=== PATIENT | male | born 1950 | race Caucasian/White ===

== ENCOUNTER 2018-12-12 09:17 | Inpatient (IN) ==
[~2018-12-12 09:17] MED LIST: Aminoglycoside Consult 1 EACH MC ONE
[2018-12-12] MEDS ORDERED: Naloxone 0.4 MG/ML INJ IVP PRN (12:16)
[2018-12-12] MEDS ORDERED: traMADol 50 MG TABLET PO PRN (12:16)
--- NOTE | 2018-12-12 12:24 | Pulmonology History & Physical ---
<James Boss - Last Filed: 12/12/18 13:45> Date of Encounter: 12/12/18 Time of Encounter: 12:24 Assessment and Plan (1) Sepsis Current visit: Yes Status: Acute Suspect sepsis based on tachycardia, tachypnea, fever and infectious source of multifocal pneumonia Lactic acid was not significantly elevated, blood pressure stable, alert and oriented 3 Plan to treat multifocal pneumonia with antibiotics We will not start fluid resuscitation at this time due to heart failure exacerbation Patient currently hemodynamically stable Qualifiers: Sepsis type: sepsis due to unspecified organism Qualified Code(s): A41.9 - Sepsis, unspecified organism (2) Acute respiratory failure Current visit: Yes Status: Acute Patient was transferred from [facility] for acute on chronic hypoxic respiratory failure He presented this morning with the chief complaint of shortness of breath He was found to be hypoxic on his home dose of 3 L nasal cannula supplemental oxygen Likely secondary to multifocal pneumonia and heart failure exacerbation Patient does have COPD but exacerbation is considered less likely Chest x-ray and CT demonstrate multifocal pneumonia, pulmonary edema and effusion On exam patient does not have wheezing or accessory muscle use Plan to continue supplemental oxygen, DuoNeb's, Symbicort We will address pneumonia with vancomycin and Zosyn until MRSA swab and cultures are complete Will fluid restrict and diuresis patient with IV Lasix, strict ins and outs and daily weights Qualifiers: Respiratory failure complication: hypoxia Qualified Code(s): J96.01 - Acute respiratory failure with hypoxia (3) HCAP (healthcare-associated pneumonia) Current visit: Yes Status: Acute Antibiotic regimen as above (4) Systolic and diastolic CHF, acute on chronic Current visit: Yes Status: Acute Patient has history of mild diastolic heart failure with reduced ejection fraction of 50% Most recent echocardiogram 11/24/2018 Diuresis as above (5) Hemoptysis Current visit: Yes Status: Acute Patient complains of hemoptysis since this morning He describes it as approximately a handful There is minimal blood witnessed in the y[place] Patient denies hematemesis or hematochezia No other bleeding diatheses witnessed, hemoglobin stable Not concerning for acute blood loss at this time, patient typed and screened, we will continue to monitor (6) COPD (chronic obstructive pulmonary disease) Current visit: No Status: Chronic History of COPD with most recent pulmonary function test on 12/05/2018 demonstrating severe obstructive pattern and impaired gas exchange Not currently in exacerbation, we will treat with supplemental oxygen, bronchodilators and inhaled corticosteroids as above Qualifiers: COPD type: COPD with acute lower respiratory infection Qualified Code(s): J44.0 - Chronic obstructive pulmonary disease with acute lower respiratory infection (7) Cirrhosis Current visit: No Status: Chronic Patient has history of cirrhosis secondary to previous hepatitis infection and alcohol use Imaging on previous admission was concerning for portal hypertension and portal venous thrombosis Patient also has hypodense lesion on imaging concerning for hepatocellular carcinoma Patient also has sequela of thrombocytopenia and elevated PT, hemoptysis Patient was scheduled to follow up outpatient with GI however will likely not make the appointment due to being in the hospital Gastroenterology consult at this admission for recommendations on management Qualifiers: Hepatic cirrhosis type: unspecified hepatic cirrhosis Ascites presence: without ascites Qualified Code(s): K74.60 - Unspecified cirrhosis of liver History of Present Illness Chief complaint: shortness of breath HPI: Mr. Stevenson is a 68 year old male with a past medical history of cirrhosis, COPD on 3 L home oxygen, hepatitis, myocardial infarction, chronic kidney disease who presented to [facility] with the chief complaint of shortness of breath and coughing up blood. He was recently admitted here in the hospital for COPD exacerbation and was discharged on 11/26/18. This morning he was seen at [facility] where he was noted to be tachycardic, tachypnea, febrile. Chest x- ray and chest CT were performed which demonstrated multifocal pneumonia and small pleural effusions, stable pulmonary nodules, interstitial pulmonary edema. Labs were significant for platelet count of 38,000, elevated PT, elevated d- dimer, compensated respiratory acidosis, lactic acid within normal limits, elevated BNP. Patient was determined to be necessary to transfer, admitting team at [facility] determined patient was necessary to be admitted to ICU. On arrival to [facility] ICU patient was in no acute distress. He stated he went home after his last admission and did well for a couple weeks. He does admit to using E cigarettes or vaporizing tobacco at home. He states the last couple of days his shortness of breath got worse and this morning he was coughing up blood. On arrival here he is comfortable on nasal cannula and denies any chest pain, palpitations. Past Med Surg Social Fam HX - Past Medical History Medical history: cirrhosis, CHF, COPD, hepatitis, myocardial infarction, renal disease Psychiatric history: anxiety, depression, panic disorder - Past Surgical History Additional surgical history: CARDIAC STENT 1995 - Social History Smoking Status: Former smoker Alcohol use: rarely Drug use: none - Family History Father Living Status: Hx Family Respiratory Disorders: Yes (COPD) Hx Family Cancer: Yes (lung) Mother Living Status: Hx Family Cancer: Yes (lung) Medications and Allergies RX: Albuterol Sulfate [Albuterol Inhaler] 2 puff IH Q6HR PRN 11/23/18 [History] RX: Aspirin [Lo-Dose Aspirin EC] 81 mg PO DAILY 11/23/18 [History] RX: Budesonide/Formoterol 160/4.5 [Symbicort 160/4.5] 2 puff IH BIDR 11/23/18 [History] RX: Buspirone HCl [Buspar] 7.5 mg PO DAILY@1500 11/23/18 [History] RX: Cholecalciferol (Vitamin D3) [Vitamin D3] 1,000 unit PO QDPC 11/23/18 [History] RX: Folic Acid 1 mg PO DAILY 11/23/18 [History] RX: Pregabalin [Lyrica] 75 mg PO QDPC 11/23/18 [History] RX: Tamsulosin HCl [Flomax] 0.4 mg PO DAILY 11/23/18 [History] RX: Venlafaxine HCl [Venlafaxine HCl ER] 37.5 mg PO QAM 11/23/18 [History] RX: clonazePAM [Clonazepam] 1 mg PO BID 11/23/18 [History] Furosemide [Lasix] 20 mg PO Q48H 12/12/18 [History] Nitroglycerin [Nitrostat] 0.4 mg SL Q5M PRN 12/12/18 [History] RX: Oxygen 1 each .ROUTE AD 12/12/18 [History] Allergy/AdvReac Type Severity Reaction Status Date / Time phenytoin [From Dilantin] AdvReac See Verified 12/12/18 06:59 Comments All Systems: The remainder of the systems were reviewed and are negative - Constitutional Constitutional: chills, fever(s), no frequent falls, no night sweats - EENT Nose, mouth and throat: no dizziness, no headache(s) - Cardiovascular Cardiovascular: dyspnea on exertion, orthopnea, no chest pain, no chest pain at rest, no irregular heart rhythm, no radiating jaw, neck or arm pain, no palpitations, no syncope - Respiratory Respiratory: cough, hemoptysis, no wheezing - Gastrointestinal Gastrointestinal: no abdominal pain, no diarrhea, no hematemesis, no hematochezia, no vomiting - Genitourinary Genitourinary: no difficulty urinating - Musculoskeletal Musculoskeletal: no weakness, no myalgias - Integumentary Integumentary: no erythema, no rash - Neurological Neurological: no abnormal gait, no focal weakness, no syncope - Endocrine Endocrine: no heat intolerance, no polydipsia - Hematologic/Lymphatic Hematologic/Lymphatic: easy bleeding, no easy bruising Physical Examination Vital Signs: Temperature 98.5 degrees, heart rate 104 bpm, respiratory rate 24, oxygen saturation 94% on 3 L nasal cannula, blood pressure 112/66 General appearance: no acute distress Eyes: nonicteric ENT: oropharynx moist Neck: supple Effort: normal Inspection: normal Auscultation: bilateral: rales, rhonchi Cardiovascular: other (Tachycardic rate and irregular rhythm) Gastrointestinal: normoactive bowel sounds, tender, other (Somewhat firm tender abdomen, hepatomegaly present) Integumentary: other (Chronic venous stasis changes present in bilateral lower extremities, no other rash visualized) Extremities: no cyanosis, other (Mild 1+ pitting edema in bilateral lower extremities) Musculoskeletal: no deformities Gait: normal posture normal mental status, non-focal exam, other (Alert and oriented 3) mood appropriate, affect normal Results - Laboratory Findings Abnormal lab findings: Abnormal lab findings as listed in history of present illness - Diagnostic Findings Chest x-ray: report reviewed, image reviewed CT scan - chest: report reviewed, image reviewed, other (Significant bilateral lower lobe opacification consistent with multifocal pneumonia. There is also significant interstitial and septal edema and mild pleural effusion) <Vikki Johnson M - Last Filed: 12/13/18 07:42> Date of Encounter: 12/13/18 History of Present Illness HPI: Mr. Stevenson is a 68 year old male All Systems: The remainder of the systems were reviewed and are negative Physical Examination Vital Signs: Vital Signs, Last 4 Hours Temp Pulse Resp BP Pulse Ox 12/12/18 14:00 102 23 152/92 94 12/12/18 13:39 94 12/12/18 12:00 98.8 F 103 23 125/79 94 Results - Laboratory Findings CBC and BMP: 12/13/18 04:43 12/13/18 04:43 - Attending Attestation I examined this patient and my medical decision-making was reviewed with the Resident Physician. I agree with the documented findings, disposition and treatment plan as described except to the extent set forth below. Patient seen and examined. Admitting hospitalist called regarding this patient because he is having hemoptysis Labs, radiology, chart personally reviewed. 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 Reviewed CT chest personally and there is significant evidence of pneumonia and will be treated with broad-spectrum antibiotics. Patient does have hemoptysis, however it is not massive and he is hemodynamically stable. Unfortunately with his thrombocytopenia that makes his risk of bleeding higher. If continue having hemoptysis then he will need platelet transfusion. The patient continued to have hemoptysis then we can consider bronchoscopy since procedure might make his condition worse. Cardiovascular: stable GI: Nutrition per dietary and GI prophylaxis per routine. Gastroenterology has seen the patient in the previous hospitalization and need recommendations and coordinate outpatient follow-up for him. Heme: DVT prophylaxis per routine. Patient has hemoptysis with thrombocytopenia and he will need mechanical DVT prophylaxis. ID: Continue antibiotics and plan to de-escalation Renal; urine out put and renal funtion reviewed Endorcine: blood glucose is monitored Lines: all lines checked and no evidence of infections Skin: skin care to prevent pressure ulcers per nursing routine care
[2018-12-12] MEDS ORDERED: Furosemide 20 MG/2 ML VIAL IVP ONE (12:26)
[2018-12-12] MEDS ORDERED: NON-FORMULARY MEDICATION 1 EACH EACH (Pantoprazole Sodium [Protonix] 40 MG) PO SCH (12:45)
[2018-12-12] MEDS ORDERED: Vancomycin (wt based) 1,000 MG VIAL IVPB SCH (13:00)
[2018-12-12] MEDS ORDERED: Budesonide/Formoterol 160/4.5 1 PUFF INH IH ONE (15:59)
[2018-12-12] MEDS: Ipratropium/Albuterol Neb 3 ML IH SCH ×3 (16:01→23:24)
[2018-12-12] MEDS: Piperacillin/Tazobactam 3.375 GM in 0.9 % Sodium Chloride Mini Bag 100 ML IVPB SCH ×2 (16:03→23:48)
[2018-12-12] MEDS ORDERED: MethylPREDNISolone 40 MG/ML VIAL IVP SCH (18:00)
[2018-12-12] MEDS: Budesonide/Formoterol 160/4.5 1 PUFF INH IH SCH (20:28)
[2018-12-12] MEDS: Furosemide 20 MG/2 ML VIAL IVP SCH (20:46)
[2018-12-13 00:25] LABS: ABG Base Excess 12 mEq/L (-2 to 3); ABG HCO3 40 mEq/L (21-27); ABG Oxygen Saturation 95 % (95-98); ABG PCO2 64 mmHg (35-45); ABG PO2 81 mmHg (85-104); ABG TCO2 42 mEq/L (20-26)
[2018-12-13 00:38] LABS: Albumin 3.2 g/dL (3.5-5.7); Albumin/Globulin Ratio 1.3 (1.1-2.2); Bilirubin,Direct 0.3 mg/dL (0.0-0.2); Bilirubin,Indirect 0.7 mg/dL (0.0-1.2); Globulin 2.4 g/dL (2.4-3.5); Total Protein 5.6 g/dL (6.4-8.9)
[2018-12-13] MEDS: Ipratropium/Albuterol Neb 3 ML IH SCH ×6 (04:00→23:37)
[2018-12-13 04:49] LABS: Hemoglobin 13.1 g/dL (12.9-16.9)
[2018-12-13 04:51] LABS: Hematocrit 42.5 % (37.5-50.1); Immature Platelets 14.3 % (1.1-6.1); Lymphocytes # 0.2 K/mcL (0.6-4.6); Mean Corpuscular HGB Conc 30.8 g/dL (31.6-35.5); Mean Corpuscular Hemoglobin 25.3 pg (28.0-33.3); Monocytes # 0.2 K/mcL (0.0-1.3); Red Blood Count 5.18 M/mcL (4.19-5.50); Red Cell Distribution Width 23.9 % (11.5-14.5)
[2018-12-13 04:58] LABS: Platelet Count 33 K/mcL (140-400)
[2018-12-13 05:10] LABS: Albumin 3.4 g/dL (3.5-5.7); Albumin/Globulin Ratio 1.4 (1.1-2.2); Bilirubin,Total 1.1 mg/dL (0.3-1.0); Calcium 8.6 mg/dL (8.6-10.3); Globulin 2.4 g/dL (2.4-3.5); Potassium 4.1 mEq/L (3.5-5.1); Total Protein 5.8 g/dL (6.4-8.9)
[2018-12-13 05:37] LABS: Neutrophils # 7.4 K/mcL (1.6-8.9)
[2018-12-13 05:39] LABS: Anisocytosis 1+ (Not Present); Macrocytosis Present (Not Present)
[2018-12-13 05:40] LABS: Platelet Estimate Marked Decrease (Normal)
[2018-12-13] MEDS: Furosemide 20 MG/2 ML VIAL IVP SCH (07:40)
[2018-12-13] MEDS: Piperacillin/Tazobactam 3.375 GM in 0.9 % Sodium Chloride Mini Bag 100 ML IVPB SCH ×3 (07:46→23:26)
[2018-12-13] MEDS: Budesonide/Formoterol 160/4.5 1 PUFF INH IH SCH ×2 (07:54→20:09)
--- NOTE | 2018-12-13 08:02 | Pulmonology Progress Note ---
<AlexArnulforuth M - Last Filed: 12/13/18 09:57> Date of Encounter: 12/13/18 Objective PUL Vital signs: Last Vital Signs Temp 98.1 F 12/13/18 09:00 Pulse 99 12/13/18 09:00 Resp 20 12/13/18 09:00 BP 121/65 12/13/18 09:00 Pulse Ox 95 12/13/18 09:00 Results - Laboratory Findings CBC and BMP: 12/13/18 04:43 12/13/18 04:43 ABG ABG pH 7.40 pH Units (7.32-7.45) 12/13/18 00:22 ABG pCO2 64 mmHg (35-45) H 12/13/18 00:22 ABG pO2 81 mmHg (85-104) L 12/13/18 00:22 ABG O2 Saturation 95 % (95-98) 12/13/18 00:22 Abnormal lab findings: Abnormal lab results MCV 82.0 fL (83.0-100.0) L 12/13/18 04:43 MCH 25.3 pg (28.0-33.3) L 12/13/18 04:43 MCHC 30.8 g/dL (31.6-35.5) L 12/13/18 04:43 RDW 23.9 % (11.5-14.5) H 12/13/18 04:43 Plt Count 33 K/mcL (140-400) L 12/13/18 04:43 Band Neutrophils % 14.0 % (0-4) H 12/13/18 04:43 Lymphocytes # 0.2 K/mcL (0.6-4.6) L 12/13/18 04:43 Platelet Estimate Marked Decrease (Normal) L 12/13/18 04:43 Immature Plt Fraction 14.3 % (1.1-6.1) H 12/13/18 04:43 Anisocytosis 1+ (Not Present) A 12/13/18 04:43 Macrocytosis Present (Not Present) A 12/13/18 04:43 ABG pCO2 64 mmHg (35-45) H 12/13/18 00:22 ABG pO2 81 mmHg (85-104) L 12/13/18 00:22 ABG HCO3 40 mEq/L (21-27) H 12/13/18 00:22 ABG Total CO2 42 mEq/L (20-26) H 12/13/18 00:22 ABG Base Excess 12 mEq/L (-2 to 3) H 12/13/18 00:22 Chloride 95 mEq/L (98-107) L 12/13/18 04:43 Carbon Dioxide 36 mEq/L (23-29) H 12/13/18 04:43 BUN 30 mg/dL (8-23) H 12/13/18 04:43 Creatinine 1.56 mg/dL (0.70-1.30) H 12/13/18 04:43 Est GFR ( Amer) 54 (> 60) L 12/13/18 04:43 Est GFR (Non-Af Amer) 45 (> 60) L 12/13/18 04:43 Glucose 146 mg/dL (70-105) H 12/13/18 04:43 Total Bilirubin 1.1 mg/dL (0.3-1.0) H 12/13/18 04:43 Direct Bilirubin 0.3 mg/dL (0.0-0.2) H 12/13/18 00:12 Serum Total Protein 5.8 g/dL (6.4-8.9) L 12/13/18 04:43 Albumin 3.4 g/dL (3.5-5.7) L 12/13/18 04:43 - Microbiology Findings Microbiology Findings: Microbiology, Last 48 Hours 12/12/18 16:14 Legionella Antigen - Final Urine,Clean Catch Streptococcus pneumoniae Antigen (M - Final 12/12/18 14:43 Sputum Culture - Preliminary Sputum 12/12/18 14:18 Influenza Types A,B Antigen - Final Nasopharyngeal 12/12/18 12:50 Blood Culture - Preliminary Peripheral Venipuncture Culture is incubating and being continuously monitored for growth. Final report to follow. 12/12/18 12:55 Blood Culture - Preliminary Peripheral Venipuncture Culture is incubating and being continuously monitored for growth. Final report to follow. - Clinical Findings Intake & Output: Intake & Output 12/12/18 12/13/18 12/13/18 23:59 07:59 15:59 Intake Total 960 / 960 100 / 100 120 / 120 Output Total 1350 / 1350 350 / 350 Balance -390 / -390 -250 / -250 120 / 120 Weight 82.8 kg Consult Discharge Plan - Plan Referrals: NONE,PCP [Primary Care Provider] - - Attending Attestation I examined this patient and my medical decision-making was reviewed with the Resident Physician. I agree with the documented findings, disposition and treatment plan as described except to the extent set forth below. Patient seen and examined. Labs, radiology, chart personally reviewed. 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 Cardiovascular: stable GI: Nutrition per dietary and GI prophylaxis per routine Heme: DVT prophylaxis per routine. Same plan if he continued to bleed then he will need platelet transfusion ID: Continue antibiotics and plan to de-escalation Renal; urine out put and renal funtion reviewed Endorcine: blood glucose is monitored Lines: all lines checked and no evidence of infections Skin: skin care to prevent pressure ulcers per nursing routine care Patient stable enough to be transferred to the floor and we will continue follow-up. <James Boss - Last Filed: 12/13/18 18:42> Date of Encounter: 12/13/18 Time of Encounter: 08:02 Assessment and Plan (1) Sepsis Current Visit: Yes Status: Resolved Suspected sepsis based on tachycardia, tachypnea, fever and infectious source of multifocal pneumonia on admission Lactic acid was not significantly elevated, blood pressure stable, alert and oriented 3 Patient no longer meets sepsis criteria, resolved Qualifiers: Sepsis type: sepsis due to unspecified organism Qualified Code(s): A41.9 - Sepsis, unspecified organism (2) Acute respiratory failure Current Visit: Yes Status: Acute Patient was transferred from [facility] for acute on chronic hypoxic respiratory failure He presented this morning with the chief complaint of shortness of breath He was found to be hypoxic on his home dose of 3 L nasal cannula supplemental oxygen Likely secondary to multifocal pneumonia and heart failure exacerbation Patient does have COPD but exacerbation is considered less likely Chest x-ray and CT demonstrated multifocal pneumonia, pulmonary edema and effusion Exam today demonstrated chest tightness not found yesterday Plan to continue supplemental oxygen, DuoNeb's, Symbicort, 40 mg by mouth prednisone daily started Continue Zosyn day 2, vancomycin discontinued based on negative MRSA swab Will fluid restrict and diurese patient with IV Lasix, strict ins and outs and daily weights Stable for transfer to floor Qualifiers: Respiratory failure complication: hypoxia Qualified Code(s): J96.01 - Acute respiratory failure with hypoxia (3) HCAP (healthcare-associated pneumonia) Current Visit: Yes Status: Acute Antibiotic regimen as above (4) Systolic and diastolic CHF, acute on chronic Current Visit: Yes Status: Acute Patient has history of mild diastolic heart failure with reduced ejection fraction of 50% Most recent echocardiogram 11/24/2018 Diuresis as above (5) Hemoptysis Current Visit: Yes Status: Acute Minimal hemoptysis on admission There is minimal blood witnessed in the [place] Patient denies hematemesis or hematochezia No other bleeding diatheses witnessed, hemoglobin stable Not concerning for acute blood loss at this time, patient typed and screened, we will continue to monitor (6) COPD (chronic obstructive pulmonary disease) Current Visit: No Status: Chronic Treatment regimen as above Qualifiers: COPD type: COPD with acute lower respiratory infection Qualified Code(s): J44.0 - Chronic obstructive pulmonary disease with acute lower respiratory infection (7) Cirrhosis Current Visit: Yes Status: Chronic Patient has history of cirrhosis secondary to previous hepatitis infection and alcohol use Imaging on previous admission was concerning for portal hypertension and portal venous thrombosis Patient also has hypodense lesion on imaging concerning for hepatocellular carcinoma Patient also has sequela of thrombocytopenia and elevated PT, hemoptysis Patient was scheduled to follow up outpatient with GI however will likely not make the appointment due to being in the hospital Gastroenterology consult this admission for recommendations on management See GI note for GI recommendations Qualifiers: Hepatic cirrhosis type: unspecified hepatic cirrhosis Ascites presence: without ascites Qualified Code(s): K74.60 - Unspecified cirrhosis of liver Subjective Principal diagnosis: Acute Respiratory Failure Interval history: Patient states his shortness of breath has improved today, and he is expectorating less hemoptysis. I informed him he is likely stable enough for transfer to the floor today, he stated he understood and agreed with the plan of care. Objective PUL Vital signs: Last Vital Signs Temp 98.1 F 12/13/18 07:00 Pulse 94 12/13/18 04:08 Resp 20 12/13/18 04:02 BP 106/64 12/12/18 23:50 Pulse Ox 90 12/13/18 04:02 General appearance: no acute distress Eyes: nonicteric ENT: oropharynx moist Neck: supple Auscultation: bilateral: diminished breath sounds, rales Cardiovascular: regular rate and rhythm Gastrointestinal: normoactive bowel sounds, tender, hepatomegaly Integumentary: other (Chronic venous stasis skin changes) Extremities: no cyanosis, other (Chronic venous stasis skin changes) Musculoskeletal: no deformities Gait: normal posture normal mental status, non-focal exam mood appropriate, affect normal Results - Laboratory Findings CBC and BMP: 12/13/18 04:43 12/13/18 04:43 ABG ABG pH 7.40 pH Units (7.32-7.45) 12/13/18 00:22 ABG pCO2 64 mmHg (35-45) H 12/13/18 00:22 ABG pO2 81 mmHg (85-104) L 12/13/18 00:22 ABG O2 Saturation 95 % (95-98) 12/13/18 00:22 Abnormal lab findings: Abnormal lab results MCV 82.0 fL (83.0-100.0) L 12/13/18 04:43 MCH 25.3 pg (28.0-33.3) L 12/13/18 04:43 MCHC 30.8 g/dL (31.6-35.5) L 12/13/18 04:43 RDW 23.9 % (11.5-14.5) H 12/13/18 04:43 Plt Count 33 K/mcL (140-400) L 12/13/18 04:43 Band Neutrophils % 14.0 % (0-4) H 12/13/18 04:43 Lymphocytes # 0.2 K/mcL (0.6-4.6) L 12/13/18 04:43 Platelet Estimate Marked Decrease (Normal) L 12/13/18 04:43 Immature Plt Fraction 14.3 % (1.1-6.1) H 12/13/18 04:43 Anisocytosis 1+ (Not Present) A 12/13/18 04:43 Macrocytosis Present (Not Present) A 12/13/18 04:43 ABG pCO2 64 mmHg (35-45) H 12/13/18 00:22 ABG pO2 81 mmHg (85-104) L 12/13/18 00:22 ABG HCO3 40 mEq/L (21-27) H 12/13/18 00:22 ABG Total CO2 42 mEq/L (20-26) H 12/13/18 00:22 ABG Base Excess 12 mEq/L (-2 to 3) H 12/13/18 00:22 Chloride 95 mEq/L (98-107) L 12/13/18 04:43 Carbon Dioxide 36 mEq/L (23-29) H 12/13/18 04:43 BUN 30 mg/dL (8-23) H 12/13/18 04:43 Creatinine 1.56 mg/dL (0.70-1.30) H 12/13/18 04:43 Est GFR ( Amer) 54 (> 60) L 12/13/18 04:43 Est GFR (Non-Af Amer) 45 (> 60) L 12/13/18 04:43 Glucose 146 mg/dL (70-105) H 12/13/18 04:43 Total Bilirubin 1.1 mg/dL (0.3-1.0) H 12/13/18 04:43 Direct Bilirubin 0.3 mg/dL (0.0-0.2) H 12/13/18 00:12 Serum Total Protein 5.8 g/dL (6.4-8.9) L 12/13/18 04:43 Albumin 3.4 g/dL (3.5-5.7) L 12/13/18 04:43 - Microbiology Findings Microbiology Findings: Microbiology, Last 48 Hours 12/12/18 16:14 Legionella Antigen - Final Urine,Clean Catch Streptococcus pneumoniae Antigen (M - Final 12/12/18 14:43 Sputum Culture - Preliminary Sputum 12/12/18 14:18 Influenza Types A,B Antigen - Final Nasopharyngeal 12/12/18 12:50 Blood Culture - Preliminary Peripheral Venipuncture Culture is incubating and being continuously igor tored for growth. Final report to follow. 12/12/18 12:55 Blood Culture - Preliminary Peripheral Venipuncture Culture is incubating and being continuously monitored for growth. Final report to follow. - Clinical Findings Intake & Output: Intake & Output 12/12/18 12/13/18 12/13/18 23:59 07:59 15:59 Intake Total 960 / 960 100 / 100 Output Total 1350 / 1350 350 / 350 Balance -390 / -390 -250 / -250 Weight 82.8 kg
[2018-12-13] MEDS ORDERED: predniSONE 20 MG TABLET PO SCH (09:00)
[2018-12-13] MEDS ORDERED: clonazePAM 1 MG TABLET PO SCH (09:45)
[2018-12-13 10:06] LABS: INR 1.4; Prothrombin Time 15.4 Seconds (9.4-12.1)
[2018-12-13] MEDS ORDERED: Folic Acid 1 MG TABLET PO SCH (11:00)
[2018-12-13] MEDS ORDERED: Thiamine (B-1) 100 MG TABLET PO SCH (11:00)
--- NOTE | 2018-12-13 11:35 | Gastroenterology Consult Note ---
Date of Encounter: 12/13/18 Time of Encounter: 09:55 - Assessment and plan (1) Cirrhosis Current Visit: No Status: Chronic Assessment and plan: Unable to calculate MELD-Na, Child-Lombardo, or DF. Complete liver workup (AFP, alpha-1 antitrypsin, NEHA, ANCA, ceruloplasmin, F actin, ferritin, hepatitis profile, AMA, PT/INR). Liver ultrasound. Check MRCP due to CT A/P concerning for portal hypertension, portal venous thrombosis, hypoattenuating areas, possible HCC or cholangiocarcinoma, and pneumobilia. Consider EGD while inpatient, will discuss with Dr. Osuna. Will need platelets >50. Recommend 2-4 BMs daily, use Lactulose if needed. Lifestyle Changes: 1. Total abstinence from alcohol including social drinking. 2. No smoking. 3. Gradual loss of weight. 4. Drink at least 3 cups of coffee due to its antioxidant effects in the liver, it reduces risk of HCC and advance fibrosis. 5. If needed, use less than 2 g/day of Tylenol (in divided doses). 6. Vaccination for Hep A, B, Pneumococcus if not already received and yearly influenza vaccination by PCP. 7. Avoid NSAIDS as can cause kidney damage. 8. Avoid benzodiazepines and other sedatives such as anti-histamines, narcotics etc. as can cause encephalopathy or confusion. 9. Take a late carbohydrate meal supplement as it reduces glucose production from protein breakdown and thus improves nutrition. 10. In cirrhosis, statins are safe to use and also improve portal hypertension and decrease risk of HCC. 11. Screening: Hepatocellular cancer screening: US of liver and AFP every 6 months Qualifiers: Hepatic cirrhosis type: unspecified hepatic cirrhosis Ascites presence: without ascites Qualified Code(s): K74.60 - Unspecified cirrhosis of liver (2) History of hepatitis C Current Visit: Yes Status: Acute Assessment and plan: Treated with Harvoni. Check Hep C viral load. - Time Spent With Patient Total time spent is greater than 50% in coordination of care (as documented) at patient's floor/unit and/or counseling patient: GI History of Present Illness - Data of Consult Patient: new to practice Consult date: 12/13/18 Requesting Physician: Vikki Johnson MD - Consult Narrative Reason for consult: Cirrhosis History of present illness: Mr. Stevenson is a 68 year old male with PMHx of cirrhosis, Hep C (treated with Harvoni), COPD, CA, CKD who presented to [facility] with the chief complaint of shortness of breath and coughing up blood. He was recently admitted for COPD exacerbation and was discharged on 11/26/18. He presented to [place] with tachycardia, tachypnea, and febrile. CXR and CT chest showed multifocal pneumonia and small pleural effusions, stable pulmonary nodules, interstitial pulmonary edema. We have been consulted to evaluate his cirrhosis. Patient states he developed hepatitis C secondary to blood exposure in [place]. He states he was treated in 2014 with Harvoni. He does admit to drinking a "few beers per week". Procedures: EGD 2-3 years ago at [facility] with benign polyps per patient report. Colonoscopy 5 years ago [place], [place] with benign polyps per patient report. NSAIDs: ASA Anticoagulation: None Past Med Surg Social Fam HX - Past Medical History Medical history: cirrhosis, CHF, COPD, hepatitis, myocardial infarction, renal disease Psychiatric history: anxiety, depression, panic disorder - Past Surgical History Surgical History: angioplasty/stent Additional surgical history: CARDIAC STENT 1995 - Social History Smoking Status: Former smoker Alcohol use: rarely Drug use: none - Family History Mother Living Status: Hx Family Cancer: Yes (lung) Father Living Status: Hx Family Respiratory Disorders: Yes (COPD) Hx Family Cancer: Yes (lung) - Gastrointestinal Gastrointestinal: Present: as per HPI - Constitutional Constitutional: as per HPI - EENT Eyes: as per HPI Ears: Present: as per HPI Nose, mouth and throat: Present: as per HPI - Cardiovascular Cardiovascular ROS: Present: as per HPI - Respiratory Respiratory IM: Present: as per HPI - Genitourinary Genitourinary: Absent: change in color, Urinary frequency - Neurological ROS Neurological GI: Absent: as per HPI - Hematologic/Lymphatic Hematologic/Lymphatic pediatric: Absent: as per HPI - Musculoskeletal Musculoskeletal ROS GI: Absent: as per HPI - Integumentary Integumentary GI: Present: as per HPI - Psychiatric ROS Psychiatric GI: Present: as per HPI - Endocrine Endocrine IM: Present: as per HPI - Constitutional Vitals: Temp Pulse Resp BP Pulse Ox 98.1 F 99 20 121/65 95 12/13/18 09:00 12/13/18 09:00 12/13/18 09:00 12/13/18 09:00 12/13/18 09:00 General appearance: Present: cooperative, A&O X 3, no acute distress, answers questions appropriately - Head Head exam: Present: atraumatic, normocephalic - Eye Eye exam: Present: normal appearance, sclera anicteric - ENT ENT exam: Present: mucous membranes moist - Neck Neck exam general surgery: Present: normal inspection, trachea midline - Respiratory Respiratory exam: Present: decreased breath sounds, CTAB. Absent: rales, rhonchi - Cardiovascular Cardiovascular exam: Present: RRR, +S1, +S2 - GI/Abdominal GI/Abdominal exam: Present: soft, no peritoneal signs. Absent: distended, firm, guarding, tenderness - Rectal Rectal exam: Present: deferred - Extremities Exam Extremities exam: Present: warm - Neurological Exam Neurological exam: Present: no focal deficits - Psychiatric Psychiatric exam: Present: normal affect, normal mood - Skin Skin exam: Present: dry, intact, normal color, warm Results - Labs CBC & Chem 7: 12/13/18 04:43 12/13/18 04:43 Labs: Last Result Calcium 8.6 mg/dL (8.6-10.3) 12/13/18 04:43 Ferritin 96 ng/mL (20-250) 12/13/18 09:27 Entire Visit Hgb 13.1 g/dL (12.9-16.9) D 12/13/18 04:43 Hct 42.5 % (37.5-50.1) 12/13/18 04:43 PT 15.4 Seconds (9.4-12.1) H 12/13/18 09:27 Ferritin 96 ng/mL (20-250) 12/13/18 09:27 Total Bilirubin 1.1 mg/dL (0.3-1.0) H 12/13/18 04:43 AST 15 Units/L (13-39) 12/13/18 04:43 ALT 18 Units/L (7-52) 12/13/18 04:43 Ammonia 44 mcmol/L (16-53) 12/13/18 00:12 - ABG ABG results: ABG ABG pH 7.40 pH Units (7.32-7.45) 12/13/18 00:22 ABG pCO2 64 mmHg (35-45) H 12/13/18 00:22 ABG pO2 81 mmHg (85-104) L 12/13/18 00:22 ABG O2 Saturation 95 % (95-98) 12/13/18 00:22 PT/INR, D-dimer PT 15.4 Seconds (9.4-12.1) H 12/13/18 09:27 Consult Discharge Plan - Plan Referrals: NONE,PCP [Primary Care Provider] -
[2018-12-13 11:49] LABS: Hepatitis B Surface Antigen Nonreactive (Nonreactive)
[2018-12-13 12:18] LABS: Hepatitis B Core IgM Nonreactive (Nonreactive)
[2018-12-13 12:19] LABS: Hepatitis A Antibody IgM Nonreactive (Nonreactive)
[2018-12-13 13:48] LABS: Hepatitis C Virus Antibody Reactive (Nonreactive)
[2018-12-13] MEDS: Multivit/Ca/Min/Fe/FA 1 TAB TABLET PO SCH (15:09)
[2018-12-13] MEDS ORDERED: Furosemide 40 MG/4 ML VIAL IVP SCH (17:00)
[2018-12-13] MEDS ORDERED: Naloxone 0.4 MG/ML INJ IVP PRN (18:16)
[2018-12-13] MEDS: Pregabalin 75 MG CAPSULE PO SCH (18:44)
[2018-12-13] MEDS: Venlafaxine XR (24 HR) 37.5 MG CAP.ER.24H PO SCH (18:44)
[2018-12-13] MEDS: clonazePAM 1 MG TABLET PO SCH (20:20)
[2018-12-14] MEDS: Ipratropium/Albuterol Neb 3 ML IH SCH ×6 (03:41→23:28)
[2018-12-14 06:16] LABS: Hemoglobin 12.5 g/dL (12.9-16.9); Mean Corpuscular Hemoglobin 25.1 pg (28.0-33.3); Red Blood Count 4.98 M/mcL (4.19-5.50)
[2018-12-14 06:18] LABS: Eosinophils % 0.3 %; Hematocrit 40.4 % (37.5-50.1); Immature Granulocytes % 0.5 % (0-4); Lymphocytes # 0.3 K/mcL (0.6-4.6); Mean Corpuscular HGB Conc 30.9 g/dL (31.6-35.5); Mean Corpuscular Volume 81.1 fL (83.0-100.0); Monocytes # 0.3 K/mcL (0.0-1.3); Monocytes % 4.8 %; Neutrophils # 5.6 K/mcL (1.6-8.9); Red Cell Distribution Width 24.8 % (11.5-14.5); Segmented Neutrophils % 90.4 %
[2018-12-14 06:35] LABS: Calcium 8.8 mg/dL (8.6-10.3); Potassium 3.9 mEq/L (3.5-5.1)
[2018-12-14 06:36] LABS: Platelet Count 35 K/mcL (140-400)
[2018-12-14 06:37] LABS: Anisocytosis 3+ (Not Present); Microcytosis Present (Not Present); Platelet Estimate Marked Decrease (Normal); Polychromasia 1+ (Not Present)
[2018-12-14] MEDS: Budesonide/Formoterol 160/4.5 1 PUFF INH IH SCH ×2 (07:19→19:19)
--- NOTE | 2018-12-14 07:42 | Internal Med Progress Note ---
Hospitalist Progress Note - Encounter Date of Encounter: 12/14/18 Time of Encounter: 07:30 - Subjective Interval History: Transferred out of the ICU overnight - Exam Vitals: Temp Pulse Resp BP Pulse Ox 97.6 F 102 16 126/82 95 12/14/18 06:37 12/14/18 06:37 12/14/18 07:19 12/14/18 06:37 12/14/18 07:19 Exam: Gen. NAD CVS. S1 S2 WNL REsp. CTAB GI. Soft, NT, ND, +BS EXT. 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 GCS 15/15 - Assessment and Plan (1) Acute respiratory failure Current Visit: Yes Status: Acute Assessment and Plan: Secondary to combination of multifocal pneumonia and acute worsening of chronic diastolic and systolic CHF Continue diuresis and antibiotics (2) HCAP (healthcare-associated pneumonia) Current Visit: Yes Status: Acute Assessment and Plan: Continue zosyn. Follow cultures (3) Systolic and diastolic CHF, acute on chronic Current Visit: Yes Status: Acute Assessment and Plan: On diuresis with lasix BID. Monitor ins and outs (4) Sepsis Current Visit: Yes Status: Acute Assessment and Plan: Sepsis 2/2 to multifocal pneumonia Continue zosyn. Follow cultures (5) COPD (chronic obstructive pulmonary disease) Current Visit: Yes Status: Chronic Assessment and Plan: No acute exacerbation. Nebs PRN (6) Hemoptysis Current Visit: Yes Status: Acute Assessment and Plan: Seen by pulmonary. Likely 2/2 to pneumonia. No plans for bronchoscopy at this time (7) Thrombocytopenia Current Visit: Yes Status: Chronic Assessment and Plan: Possibly secondary to chronic hepatitis. Monitor platelet count. Follow up with oncology DVT Prophylaxis: SCDS - Time Spent with Patient Total time spent is greater than 50% in coordination of care (as documented) at patient's floor/unit and/or counseling patient: Internal Medicine: Result - Labs CBC & Chem 7: 12/14/18 05:31 12/14/18 05:31 Labs: Short CBC 12/14/18 Range/Units 05:31 WBC 6.2 (4.3-11.1) K/mcL Hgb 12.5 L (12.9-16.9) g/dL Hct 40.4 (37.5-50.1) % Plt Count 35 L (140-400) K/mcL Neutrophils # 5.6 (1.6-8.9) K/mcL BMP 12/14/18 05:31 Sodium 141 Potassium 3.9 Chloride 95 L Carbon Dioxide 35 H BUN 40 H Creatinine 1.56 H Glucose 133 H Calcium 8.8 - ABG Interpretation ABG results: ABG ABG pH 7.40 pH Units (7.32-7.45) 12/13/18 00:22 ABG pCO2 64 mmHg (35-45) H 12/13/18 00:22 ABG pO2 81 mmHg (85-104) L 12/13/18 00:22 ABG O2 Saturation 95 % (95-98) 12/13/18 00:22 PT/INR, D-dimer PT 15.4 Seconds (9.4-12.1) H 12/13/18 09:27 - Impressions Impressions Abdomen MRI 12/13/18 11:35 IMPRESSION: Cirrhotic morphology of the liver with sequela of portal hypertension. Focus of abnormal signal in the central liver with overlying capsular retraction. No arterial enhancement to suggest HCC. While rare, findings may represent sequela of remote vascular insult to the liver given peripheral wedge-shaped nature with resultant biliary necrosis and fibrotic change. Prior trauma is a possibility as well. Alternatively, sequela of remote peripheral biliary obstruction could result in biliary necrosis causing pneumobilia and fibrosis in a similar pattern. Underlying cholangiocarcinoma is considered unlikely but remains a possibility. Recommend comparison with prior outside imaging if at all available. If none is available, consider follow-up MRI or CT in 3-6 months to ensure stability. Cholelithiasis. D/ / Mickey Phelps MD / Mickey Phelps MD Interpreting Provider: Mickey Phelps MD Liver Ultrasound 12/13/18 13:00 IMPRESSION: 1. Redemonstration of hepatic cirrhosis. An echogenic area may represent infarct or abscess with air. Further evaluation with abdominal CT is recommended. 2. Cholelithiasis and mild thickening of the gallbladder wall. Acute cholecystitis should be considered. RECOMMENDATIONS: Abdominal CT with contrast. D/ / 12/13/2018 13:49:33 Tia Forrest MD / adams Interpreting Provider: Tia Forrest MD Consult Discharge Plan - Plan Referrals: NONE,PCP [Primary Care Provider] - (1) Acute respiratory failure Qualifiers: Respiratory failure complication: hypoxia Qualified Code(s): J96.01 - Acute respiratory failure with hypoxia (4) Sepsis Qualifiers: Sepsis type: sepsis due to unspecified organism Qualified Code(s): A41.9 - Sepsis, unspecified organism (5) COPD (chronic obstructive pulmonary disease) Qualifiers: COPD type: COPD with acute lower respiratory infection Qualified Code(s): J44.0 - Chronic obstructive pulmonary disease with acute lower respiratory infection
[2018-12-14] MEDS: Multivit/Ca/Min/Fe/FA 1 TAB TABLET PO SCH (08:33)
[2018-12-14] MEDS: predniSONE 20 MG TABLET PO SCH (08:33)
[2018-12-14] MEDS: Venlafaxine XR (24 HR) 37.5 MG CAP.ER.24H PO SCH (08:34)
[2018-12-14] MEDS: Thiamine (B-1) 100 MG TABLET PO SCH (08:34)
[2018-12-14] MEDS: clonazePAM 1 MG TABLET PO SCH ×2 (08:34→21:04)
[2018-12-14] MEDS: Pregabalin 75 MG CAPSULE PO SCH (08:34)
[2018-12-14] MEDS: Folic Acid 1 MG TABLET PO SCH (08:34)
[2018-12-14] MEDS: Piperacillin/Tazobactam 3.375 GM in 0.9 % Sodium Chloride Mini Bag 100 ML IVPB SCH ×2 (08:35→15:26)
[2018-12-14] MEDS: Furosemide 20 MG/2 ML VIAL IVP SCH ×2 (08:35→17:37)
[2018-12-14] MEDS: traMADol 50 MG TABLET PO PRN ×2 (11:31→21:53)
--- NOTE | 2018-12-14 14:01 | Pulmonology Progress Note ---
Date of Encounter: 12/14/18 Time of Encounter: 07:45 Assessment and Plan (1) Hemoptysis Current Visit: Yes Status: Acute Patient continued to have hemoptysis, however this is getting better and was treatment of his pneumonia and will continue monitor and again risk of invasive procedure with his thrombocytopenia is high. Continue current treatment and de- escalation of antibiotics based on the cultures and sensitivity. Continue bronchodilators and will follow-up as needed. He might need bronchoscopy as outpatient if his thrombocytopenia improves just to make sure there is no endobronchial lesions if he continued to have hemoptysis. Please call for any questions. 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 Objective PUL Vital signs: Last Vital Signs Temp 97.8 F 12/14/18 10:58 Pulse 104 12/14/18 10:58 Resp 16 12/14/18 11:15 BP 122/79 12/14/18 10:58 Pulse Ox 90 12/14/18 11:15 General appearance: no acute distress Eyes: nonicteric ENT: oropharynx moist Neck: supple Effort: normal Auscultation: left: diminished breath sounds, right: rhonchi Percussion: bilateral: not dull Cardiovascular: regular rate and rhythm Gastrointestinal: normoactive bowel sounds, non-distended Extremities: no cyanosis, edema normal mental status, non-focal exam mood appropriate Results - Laboratory Findings CBC and BMP: 12/14/18 05:31 12/14/18 05:31 ABG ABG pH 7.40 pH Units (7.32-7.45) 12/13/18 00:22 ABG pCO2 64 mmHg (35-45) H 12/13/18 00:22 ABG pO2 81 mmHg (85-104) L 12/13/18 00:22 ABG O2 Saturation 95 % (95-98) 12/13/18 00:22 PT/INR, D-dimer PT 15.4 Seconds (9.4-12.1) H 12/13/18 09:27 Abnormal lab findings: Abnormal lab results Hgb 12.5 g/dL (12.9-16.9) L 12/14/18 05:31 MCV 81.1 fL (83.0-100.0) L 12/14/18 05:31 MCH 25.1 pg (28.0-33.3) L 12/14/18 05:31 MCHC 30.9 g/dL (31.6-35.5) L 12/14/18 05:31 RDW 24.8 % (11.5-14.5) H 12/14/18 05:31 Plt Count 35 K/mcL (140-400) L 12/14/18 05:31 Band Neutrophils % 14.0 % (0-4) H 12/13/18 04:43 Lymphocytes # 0.3 K/mcL (0.6-4.6) L 12/14/18 05:31 Platelet Estimate Marked Decrease (Normal) L 12/14/18 05:31 Immature Plt Fraction 13.0 % (1.1-6.1) H 12/14/18 05:31 Polychromasia 1+ (Not Present) A 12/14/18 05:31 Anisocytosis 3+ (Not Present) A 12/14/18 05:31 Microcytosis Present (Not Present) A 12/14/18 05:31 Macrocytosis Present (Not Present) A 12/13/18 04:43 PT 15.4 Seconds (9.4-12.1) H 12/13/18 09:27 ABG pCO2 64 mmHg (35-45) H 12/13/18 00:22 ABG pO2 81 mmHg (85-104) L 12/13/18 00:22 ABG HCO3 40 mEq/L (21-27) H 12/13/18 00:22 ABG Total CO2 42 mEq/L (20-26) H 12/13/18 00:22 ABG Base Excess 12 mEq/L (-2 to 3) H 12/13/18 00:22 Chloride 95 mEq/L (98-107) L 12/14/18 05:31 Carbon Dioxide 35 mEq/L (23-29) H 12/14/18 05:31 BUN 40 mg/dL (8-23) H 12/14/18 05:31 Creatinine 1.56 mg/dL (0.70-1.30) H 12/14/18 05:31 Est GFR ( Amer) 54 (> 60) L 12/14/18 05:31 Est GFR (Non-Af Amer) 45 (> 60) L 12/14/18 05:31 Glucose 133 mg/dL (70-105) H 12/14/18 05:31 POC Glucose 114 mg/dL (70-99) H 12/14/18 06:41 Calculated Osmolality 304 (280-300) H 12/14/18 05:31 Total Bilirubin 1.1 mg/dL (0.3-1.0) H 12/13/18 04:43 Direct Bilirubin 0.3 mg/dL (0.0-0.2) H 12/13/18 00:12 Serum Total Protein 5.8 g/dL (6.4-8.9) L 12/13/18 04:43 Albumin 3.4 g/dL (3.5-5.7) L 12/13/18 04:43 Hepatitis C Ab Screen Reactive (Nonreactive) H 12/13/18 09:27 - Microbiology Findings Microbiology Findings: Microbiology, Last 48 Hours 12/12/18 14:43 Sputum Culture - Final Sputum 12/12/18 16:14 Legionella Antigen - Final Urine,Clean Catch Streptococcus pneumoniae Antigen (M - Final 12/12/18 14:18 Influenza Types A,B Antigen - Final Nasopharyngeal 12/12/18 12:50 Blood Culture - Preliminary Peripheral Venipuncture Culture is incubating and being continuously monitored for growth. Final report to follow. 12/12/18 12:55 Blood Culture - Preliminary Peripheral Venipuncture Culture is incubating and being continuously monitored for growth. Final report to follow. - Clinical Findings Intake & Output: Intake & Output 12/13/18 12/14/18 12/14/18 23:59 07:59 15:59 Intake Total 100 / 100 240 / 240 100 / 100 Output Total 600 / 600 800 / 800 0 / 0 Balance -500 / -500 -560 / -560 100 / 100 Weight 82.8 kg Consult Discharge Plan - Plan Referrals: NONE,PCP [Primary Care Provider] -
--- NOTE | 2018-12-14 17:07 | Oncology Inp Consult Note ---
<Florinda Head L - Last Filed: 12/15/18 14:26> Date of Encounter: 12/14/18 Time of Encounter: 17:30 Assessment and Plan (1) Cirrhosis Status: Chronic Assessment and plan: Abdominal MRI does note: Focus of abnormal signal in the central liver with overlying capsular retraction. No arterial enhancement to suggest HCC. While rare, findings may represent sequela of remote vascular insult to the liver given peripheral wedge-shaped nature with resultant biliary necrosis and fibrotic change. Prior trauma is a possibility as well. Alternatively, sequela of remote peripheral biliary obstruction could result in biliary necrosis causing pneumobilia and fibrosis in a similar pattern. Underlying cholangiocarcinoma is considered unlikely but remains a possibility. Recommend comparison with prior outside imaging if at all available. If none is available, consider follow-up MRI or CT in 3-6 months to ensure stability. Patient states he follows with GI-Dr. Nicole He wishes to follow up with Dr. Nicole for further repeat imaging Qualifiers: Hepatic cirrhosis type: unspecified hepatic cirrhosis Ascites presence: without ascites Qualified Code(s): K74.60 - Unspecified cirrhosis of liver (2) History of hepatitis C Status: Acute Assessment and plan: Treated Hepatitis C with Harvoni in 2014 Defer further management to GI Dr. Nicole as outpatient (3) Thrombocytopenia Status: Chronic Assessment and plan: In the setting of cirrhosis with history of treated Hepatitis C Given platelet count of 35 in setting of hemoptysis, will order 1 unit platelets Patient prefers GI follow up, consult to hematology in future if needed (4) Pneumonia Status: Acute Assessment and plan: Management per primary team Qualifiers: Pneumonia type: due to unspecified organism Laterality: left Lung location: lower lobe of lung Qualified Code(s): J18.1 - Lobar pneumonia, unspecified organism (5) Hemoptysis Status: Acute Assessment and plan: Overall, improving with treatment of PNA Pulmonology note reviewed, may plan for bronchoscopy as outpatient if thrombocytopenia improves due to risk of procedural complications - Data of Consult Requesting Physician: Ele Kern Primary Care Provider: PCP NONE - Consult Narrative Reason for consult: Thrombocytopenia, cirrhosis, hemoptysis History of present illness: Mr. Stevenson is a 68 year old male with past medical history of cirrhosis, COPD on 3 L home oxygen, treated hepatitis C in 2014, myocardial infarction, chronic kidney disease who presented to [facility] with the chief complaint of shortness of breath and hemoptysis. CTA chest reveal no evidence of PE, interval development of diffuse widespread airspace consolidation throughout the left lung, most consistent with multifocal pneumonia, findings consistent with interstitial pulmonary edema, stable small bilateral pleural effusions, stable scattered nonspecific pulmonary nodules throughout both lungs, the largest measuring approximately 6 mm on average within the right lung apex, findings consistent with patient history of cirrhosis and portal hypertension, including a nonspecific focus of low attenuation within the central liver, similar to the prior study. He was transferred to [facility] with pulmonology consultation and admission for sepsis, HCAP, hemoptysis, cirrhosis and acute on chronic respiratory failure. Past Med Surg Social Fam HX - Past Medical History Medical history: cirrhosis, CHF, COPD, hepatitis, myocardial infarction, renal disease Psychiatric history: anxiety, depression, panic disorder - Past Surgical History Surgical History: angioplasty/stent Additional surgical history: CARDIAC STENT 1995 - Social History Smoking Status: Former smoker Alcohol use: rarely Drug use: none - Family History Mother Living Status: Hx Family Cancer: Yes (lung) Father Living Status: Hx Family Respiratory Disorders: Yes (COPD) Hx Family Cancer: Yes (lung) Medications and Allergies Albuterol Sulfate [Albuterol Inhaler] 2 puff IH Q6HR PRN 11/23/18 [History] Aspirin [Lo-Dose Aspirin EC] 81 mg PO DAILY 11/23/18 [History] Budesonide/Formoterol 160/4.5 [Symbicort 160/4.5] 2 puff IH BIDR 11/23/18 [History] Buspirone HCl [Buspar] 7.5 mg PO DAILY@1500 11/23/18 [History] Cholecalciferol (Vitamin D3) [Vitamin D3] 1,000 unit PO QDPC 11/23/18 [History] Folic Acid 1 mg PO DAILY 11/23/18 [History] Pregabalin [Lyrica] 75 mg PO QDPC 11/23/18 [History] Tamsulosin HCl [Flomax] 0.4 mg PO DAILY 11/23/18 [History] Venlafaxine HCl [Venlafaxine HCl ER] 37.5 mg PO QAM 11/23/18 [History] clonazePAM [Clonazepam] 1 mg PO BID 11/23/18 [History] Furosemide [Lasix] 20 mg PO Q48H 12/12/18 [History] Nitroglycerin [Nitrostat] 0.4 mg SL Q5M PRN 12/12/18 [History] Oxygen 1 each .ROUTE AD 12/12/18 [History] Albuterol Neb [Proventil Neb] 2.5 mg IH TID 12/13/18 [History] Pantoprazole Sodium [Protonix] 40 mg PO DAILY 12/13/18 [History] Azithromycin [Azithromycin 6-Tab Pack] 250 mg PO PER PKG DI #6 tab 12/15/18 [Rx] Cefdinir [Omnicef] 300 mg PO BID 3 Days #6 capsule 12/15/18 [Rx] predniSONE [PredniSONE] 40 mg PO DAILY 7 Days #14 tablet 12/15/18 [Rx] Allergy/AdvReac Type Severity Reaction Status Date / Time phenytoin [From Dilantin] AdvReac See Verified 12/13/18 14:01 Comments Constitutional: Present: anorexia, chills, fatigue, fever(s), weakness. Absent: night sweats, weight loss Eyes: Absent: change in vision Nose, mouth and throat: Absent: dysphagia, odynophagia Cardiovascular: Absent: chest pain, irregular heart rhythm Respiratory: Present: cough, dyspnea, hemoptysis, wheezing Gastrointestinal: Absent: abdominal pain, nausea, vomiting Genitourinary: Absent: hematuria Musculoskeletal: Present: muscle weakness Integumentary: Absent: rash, wounds Neurological: Absent: focal weakness, frequent falls Psychiatric: Present: as per HPI Endocrine: Present: as per HPI Hematologic/Lymphatic: Present: easy bleeding, easy bruising Oncology - Exam - Constitutional General appearance: cooperative, no acute distress, no febrile - Head Head exam: Present: atraumatic - ENT ENT exam: Present: mucous membranes moist, normal oropharynx - Respiratory Respiratory exam: Present: decreased breath sounds, CTAB. Absent: respiratory distress - Cardiovascular Cardiovascular exam: Present: RRR - GI/Abdominal GI/Abdominal exam: Present: normal bowel sounds, soft. Absent: tenderness - Extremities Exam Extremities exam: Present: normal inspection. Absent: calf tenderness - Neurological Exam Neurological exam: Present: alert, oriented X3, no focal deficits, strengths equal and symetr throughout - Psychiatric Psychiatric exam: Present: normal affect, normal mood - Skin Skin exam: Present: dry, intact, normal color, warm Consult Discharge Plan - Plan Instructions: Prednisone (By mouth), Azithromycin (By mouth), Cefdinir (By mouth), Chronic Obstructive Pulmonary Disease (DC) Referrals: Román Alvarado MD [Non-Partnered Physician] - 12/19/18 12:20 pm (Please follow up as schedule...) NONE,PCP [Primary Care Provider] - Prescriptions: Azithromycin [Azithromycin 6-Tab Pack] 250 mg PO PER PKG DI #6 tab Cefdinir [Omnicef] 300 mg PO BID 3 Days #6 capsule predniSONE [PredniSONE] 40 mg PO DAILY 7 Days #14 tablet Inpatient Charges Provider: Dr. Mohini Wayne <Mariann Wayne - Last Filed: 12/15/18 16:06> Date of Encounter: 12/15/18 - Data of Consult Requesting Physician: Ele Kern Primary Care Provider: PCP NONE - Consult Narrative History of present illness: Thrombocytopenia, cr hepatitis related, s/p Rx of hep C, rpt viral load?, Worsening plt due to possible infection. Due to hemoptysis, recommended plt transfusion. Transfusion prn prior to procedures if needed. CT findings noted, MRI liver, f/u with GI/heme plt monitoring. I examined this patient and my medical decision-making was reviewed with the Advanced Practice Nurse, Florinda head. I agree with the documented findings, disposition and treatment plan as described except to the extent set forth below. Inpatient Charges Provider: Dr. Mohini Wayne Consult - Inpatient: [id number]
[2018-12-14] MEDS ORDERED: 0.9 % Sodium Chloride 250 ML ONE (18:32)
[2018-12-15] MEDS: Piperacillin/Tazobactam 3.375 GM in 0.9 % Sodium Chloride Mini Bag 100 ML IVPB SCH ×2 (00:13→09:02)
[2018-12-15] MEDS: Ipratropium/Albuterol Neb 3 ML IH SCH ×4 (03:51→15:20)
[2018-12-15] MEDS: Budesonide/Formoterol 160/4.5 1 PUFF INH IH SCH (07:54)
[2018-12-15 08:33] LABS: Eosinophils % 0.2 %; Immature Granulocytes % 0.4 % (0-4)
[2018-12-15 08:35] LABS: Hemoglobin 12.6 g/dL (12.9-16.9); Immature Platelets 9.1 % (1.1-6.1); Lymphocytes # 0.3 K/mcL (0.6-4.6); Lymphocytes % 5.7 %; Mean Corpuscular HGB Conc 30.7 g/dL (31.6-35.5); Mean Corpuscular Hemoglobin 25.3 pg (28.0-33.3); Mean Corpuscular Volume 82.3 fL (83.0-100.0); Monocytes # 0.2 K/mcL (0.0-1.3); Monocytes % 3.9 %; Neutrophils # 4.1 K/mcL (1.6-8.9); Red Blood Count 4.98 M/mcL (4.19-5.50); Red Cell Distribution Width 24.2 % (11.5-14.5); Segmented Neutrophils % 89.8 %
[2018-12-15 08:41] LABS: Platelet Count 43 K/mcL (140-400)
[2018-12-15 08:51] LABS: Calcium 9.3 mg/dL (8.6-10.3); Magnesium 1.7 mg/dL (1.6-2.6); Phosphorous 3.7 mg/dL (2.7-4.5); Potassium 3.6 mEq/L (3.5-5.1)
[2018-12-15] MEDS: Furosemide 20 MG/2 ML VIAL IVP SCH (09:01)
[2018-12-15 10:06] LABS: AFP Tumor Marker Non-Pregnant 2 ng/mL (0-9)
[2018-12-15] MEDS: Multivit/Ca/Min/Fe/FA 1 TAB TABLET PO SCH (10:22)
[2018-12-15] MEDS: Thiamine (B-1) 100 MG TABLET PO SCH (10:23)
[2018-12-15] MEDS: Venlafaxine XR (24 HR) 37.5 MG CAP.ER.24H PO SCH (10:23)
[2018-12-15] MEDS: Pregabalin 75 MG CAPSULE PO SCH (10:24)
[2018-12-15] MEDS: Folic Acid 1 MG TABLET PO SCH (10:24)
[2018-12-15] MEDS: clonazePAM 1 MG TABLET PO SCH (10:25)
[2018-12-15] MEDS: predniSONE 20 MG TABLET PO SCH (10:25)
[2018-12-15 10:36] LABS: F-Actin (sm muscle) Ab IgG 7 Units (0-19)
[2018-12-15 10:37] LABS: ANA IgG by ELISA NONE DETECTED (None Detected)
--- NOTE | 2018-12-15 11:31 | Discharge Summary ---
Date of Encounter: 12/15/18 Time of Encounter: 11:00 - Discharge Diagnosis (1) Acute respiratory failure Priority: Primary Status: Acute Assessment and Plan: 68 year old male with a past medical history of cirrhosis, COPD on 3 L home oxygen, hepatitis, myocardial infarction, chronic kidney disease who presented to [facility] with the chief complaint of shortness of breath and coughing up blood. He was recently admitted here in the hospital for COPD exacerbation and was discharged on 11/26/18. This morning he was seen at [facility] where he was noted to be tachycardic, tachypnea, febrile. Chest x-ray and chest CT were performed which demonstrated multifocal pneumonia and small pleural effusions, stable pulmonary nodules, interstitial pulmonary edema. He was admitted to the ICU with sepsis and acute hypoxic hypercapneic respiratory failure secondary to a combination of COPD exacerbation, multifocal pneumonia and acute worsening of chronic diastolic and systolic CHF. He was started on diuresis and antibiotics and was able to be transferred out of the ICU to the floor. He was noted to have hemoptysis on admission which improved with antibiotics. He was seen by pulmonary and will follow up with them for an outpatient bronchoscopy due to his thrombocytopenia. For his thrombocytopenis, etiology unclear; he does have treated Hep C and current liver cirrhosis. He was seen by oncology and received one bag of platelets. His platelet count responded appropriately. He will follow up with oncology as an outpatient. He will also complete a course of antibiotics and steroids. 35 minutes was spent discharging this patient Qualifiers: Respiratory failure complication: hypoxia Qualified Code(s): J96.01 - Acute respiratory failure with hypoxia (2) HCAP (healthcare-associated pneumonia) Priority: Primary Status: Acute (3) Systolic and diastolic CHF, acute on chronic Priority: Primary Status: Acute (4) Sepsis Priority: Primary Status: Acute Qualifiers: Sepsis type: sepsis due to unspecified organism Qualified Code(s): A41.9 - Sepsis, unspecified organism (5) COPD (chronic obstructive pulmonary disease) Priority: Primary Status: Chronic Qualifiers: COPD type: COPD with acute lower respiratory infection Qualified Code(s): J44.0 - Chronic obstructive pulmonary disease with acute lower respiratory infection (6) Hemoptysis Priority: Primary Status: Acute (7) Thrombocytopenia Priority: Primary Status: Chronic Hospital course: Mr. Stevenson is a 68 year old male - Time Spent with Patient Total time spent providing and/or coordinating discharge services: - Discharge Medications Prescriptions: New predniSONE [PredniSONE] 40 mg PO DAILY 7 Days #14 tablet Cefdinir [Omnicef] 300 mg PO BID 3 Days #6 capsule Azithromycin [Azithromycin 6-Tab Pack] 250 mg PO PER PKG DI #6 tab Continue Pregabalin [Lyrica] 75 mg PO QDPC clonazePAM [Clonazepam] 1 mg PO BID Buspirone HCl [Buspar] 7.5 mg PO DAILY@1500 Aspirin [Lo-Dose Aspirin EC] 81 mg PO DAILY Folic Acid 1 mg PO DAILY Tamsulosin HCl [Flomax] 0.4 mg PO DAILY Budesonide/Formoterol 160/4.5 [Symbicort 160/4.5] 2 puff IH BIDR Venlafaxine HCl [Venlafaxine HCl ER] 37.5 mg PO QAM Cholecalciferol (Vitamin D3) [Vitamin D3] 1,000 unit PO QDPC Albuterol Sulfate [Albuterol Inhaler] 2 puff IH Q6HR PRN PRN Reason: SOB/WHEEZING Albuterol Neb [Proventil Neb] 2.5 mg IH TID Pantoprazole Sodium [Protonix] 40 mg PO DAILY Oxygen 1 each .ROUTE AD Furosemide [Lasix] 20 mg PO Q48H Nitroglycerin [Nitrostat] 0.4 mg SL Q5M PRN PRN Reason: Chest Pain Home Medications: Albuterol Sulfate [Albuterol Inhaler] 2 puff IH Q6HR PRN 11/23/18 [History] Aspirin [Lo-Dose Aspirin EC] 81 mg PO DAILY 11/23/18 [History] Budesonide/Formoterol 160/4.5 [Symbicort 160/4.5] 2 puff IH BIDR 11/23/18 [History] Buspirone HCl [Buspar] 7.5 mg PO DAILY@1500 11/23/18 [History] Cholecalciferol (Vitamin D3) [Vitamin D3] 1,000 unit PO QDPC 11/23/18 [History] Folic Acid 1 mg PO DAILY 11/23/18 [History] Pregabalin [Lyrica] 75 mg PO QDPC 11/23/18 [History] Tamsulosin HCl [Flomax] 0.4 mg PO DAILY 11/23/18 [History] Venlafaxine HCl [Venlafaxine HCl ER] 37.5 mg PO QAM 11/23/18 [History] clonazePAM [Clonazepam] 1 mg PO BID 11/23/18 [History] Furosemide [Lasix] 20 mg PO Q48H 12/12/18 [History] Nitroglycerin [Nitrostat] 0.4 mg SL Q5M PRN 12/12/18 [History] Oxygen 1 each .ROUTE AD 12/12/18 [History] Albuterol Neb [Proventil Neb] 2.5 mg IH TID 12/13/18 [History] Pantoprazole Sodium [Protonix] 40 mg PO DAILY 12/13/18 [History] Azithromycin [Azithromycin 6-Tab Pack] 250 mg PO PER PKG DI #6 tab 12/15/18 [Rx] Cefdinir [Omnicef] 300 mg PO BID 3 Days #6 capsule 12/15/18 [Rx] predniSONE [PredniSONE] 40 mg PO DAILY 7 Days #14 tablet 12/15/18 [Rx] Allergies/Adverse Reactions: Allergy/AdvReac Type Severity Reaction Status Date / Time phenytoin [From Dilantin] AdvReac See Verified 12/13/18 14:01 Comments Date of admission: 12/12/18 11:44 Primary care physician: PCP NONE Consults: 12/12/18 13:39 Consult to Gastroenterology [CONS] Routine Consulting Provider: Gastroenterology Becky Reason for Consult: Patient has history of cirrhosis secondary to hepatitis and alcohol use. During last admission imaging findings were concerning for portal venous thrombosis. Patient also has chronic thrombocytopenia. He is scheduled to follow up outpatient with GI, however due to his frequent readmissions it is concerning that he may never get the chance to be evaluated. We are requesting formal evaluation and recommendations on any inpatient or outpatient management necessary. Time Notified: 13:42 Call Completed: No 12/12/18 14:06 Consult to Commercial Real Estate Manager [CONS] Routine Reason for SW Consult: patient states he has homehealth and home oxygen 12/14/18 14:36 Consult to Nurse Navigator [CONS] Routine Comment: hcap 12/14/18 14:43 Consult to Oncology [CONS] Routine Consulting Provider: Oncology [facility] Becky Reason for Consult: worsening thrombocytopenia in setting of treated hep C Call Completed: No - Constitutional Vitals: Temp Pulse Resp BP Pulse Ox 98.3 F 100 16 136/88 98 04/11/19 07:45 12/15/18 07:45 12/15/18 07:55 12/15/18 07:45 12/15/18 07:55 Exam: Gen. NAD CVS. S1 S2 WNL REsp. CTAB GI. Soft, NT, ND, +BS EXT. 2+ pulses GROUP CAPTAIN. GCS - Patient Status Disposition: Home, Self-Care Condition: Good - Discharge Instructions Instructions: Prednisone (By mouth), Azithromycin (By mouth), Cefdinir (By mouth), Chronic Obstructive Pulmonary Disease (DC) Follow Up With: Román Alvarado MD [Non-Partnered Physician] - 12/19/18 12:20 pm (Please follow up as schedule...) NONE,PCP [Primary Care Provider] -
[2018-12-15 11:53] VITALS: BP 135/76
[2018-12-16 10:49] LABS: HCV Quant Interpretation NOT DETECTED (Not Detected); HCV Quant Log NOT DETECTED log IU/mL
[2018-12-17 07:46] LABS: Myeloperoxidase Ab 0 AU/mL (0-19); Serine Protease-3 Antibody 0 AU/mL (0-19)
== END 2018-12-15 16:32 | disposition home or self-care (01) | DRG 871 ==
LOC: SUATTDRO 11:44 → ICNU 11:44 → 2ANU 12-13 17:40
PROVIDERS: ADMIT Internal Medicine Pulmonary Disease; ATTEND Student in an Organized Health Care Education/Training Program

== ENCOUNTER 2019-01-06 12:48 | Inpatient (IN) ==
--- NOTE | 2019-01-06 14:46 | Internal Med History&Physical ---
Date of Encounter: 01/06/19 Time of Encounter: 14:40 Internal Medicine - H&P: HPI Chief complaint: chest pain Admitted From: Direct Admit Plans for Post Hospital Care: Home History of present illness: Mr. Stevenson is a 68 year old male with a past medical history of cirrhosis, COPD on 3 L home oxygen, CKD3, hepatitis C, CAD with one stent in the , thrombocytopenia, who presents as transfer from [facility] due to complaints of chest pain. Been going on for 2-3 weeks but has developed worsening of it this morning around 6am. Nitro did not help. Substernal and goes into throat area. Pleuritic in nature. Reports dyspnea and diaphoresis as well. Has lower extremity swelling but tells me this is his baseline. Also says he had "passed out" 2 days ago at home. Was out for about 3 minutes. Had just come out of the bathroom after voiding and his heart rate had went up to the 200s and felt "sick" and " just passed out." His care trainer's daughter was there to hold him and helped get him up and take him to his bed. He gets 24/7 care at home. Does not describe any other symptoms associated with the episode. Upon presentation there he is tachycardic and in sinus. Trops came back elevated at .05. EKG with no acute changes. There is LBBB but seems to be old. No heparin was started due to low platelets. CXR showed resolution of previous pneumonia. BNP was 34. Creatinine 1.1, BUN 15. Platelets 32, WBC 4.2, Hgb 13.4. He is on 3L NC which is his chronic needs. Reports feeling dizzy at times. Had a syncopal episode 2 days ago while going to the bathroom. Denies headache, blurry vision, fever, chills, nausea, vomiting, abdominal pain, diarrhea, constipation, urinary symptoms, numbness, tingling, or rashes. Recent hospitalization and discharged 12/15 for sepsis due to multifocal pneumonia, COPD exacerbation, and interstitial pulmonary edema. Needed ICU stay then. Was noted to have thrombocytopenia then and seen by hematology who he is to follow up with. Last echo on record in November 2018 with EF 50%, mild diastolic dysfxn. Past Med Surg Social Fam HX - Past Medical History Medical history: cirrhosis, CHF, COPD, hepatitis, myocardial infarction, renal disease Psychiatric history: anxiety, depression, panic disorder - Past Surgical History Surgical History: angioplasty/stent Additional surgical history: CARDIAC STENT 1995 - Social History Smoking Status: Former smoker Alcohol use: rarely Drug use: none - Family History Mother Living Status: Hx Family Cancer: Yes (lung) Father Living Status: Hx Family Respiratory Disorders: Yes (COPD) Hx Family Cancer: Yes (lung) Internal Medicine - H&P: Meds Albuterol Sulfate [Albuterol Inhaler] 2 puff IH Q6HR PRN 11/23/18 [History] Aspirin [Lo-Dose Aspirin EC] 81 mg PO DAILY 11/23/18 [History] Budesonide/Formoterol 160/4.5 [Symbicort 160/4.5] 2 puff IH BIDR 11/23/18 [History] Buspirone HCl [Buspar] 7.5 mg PO DAILY@1500 11/23/18 [History] Cholecalciferol (Vitamin D3) [Vitamin D3] 1,000 unit PO QDPC 11/23/18 [History] Pregabalin [Lyrica] 75 mg PO QDPC 11/23/18 [History] Tamsulosin HCl [Flomax] 0.4 mg PO DAILY 11/23/18 [History] Venlafaxine HCl [Venlafaxine HCl ER] 37.5 mg PO BIDWM 11/23/18 [History] clonazePAM [Clonazepam] 1 mg PO BID 11/23/18 [History] Furosemide [Lasix] 20 mg PO Q48H 12/12/18 [History] Nitroglycerin [Nitrostat] 0.4 mg SL Q5M PRN 12/12/18 [History] Oxygen 1 each .ROUTE AD 12/12/18 [History] Albuterol Neb [Proventil Neb] 2.5 mg IH TID 12/13/18 [History] Pantoprazole Sodium [Protonix] 40 mg PO DAILY 12/13/18 [History] Pregabalin [Lyrica] 75 mg PO BID 01/06/19 [History] Allergy/AdvReac Type Severity Reaction Status Date / Time phenytoin [From Dilantin] AdvReac See Verified 12/13/18 14:01 Comments All Systems PM: A 10-system review of systems was performed and is negative for pertinent findings except as documented above in the HPI. Review of systems: All systems reviewed are negative except as mentioned above - Constitutional Exam: GEN: NAD HEENT: AT, NC, No cyanosis, oral mucosa is moist, No JVD Lymphatics: No lymphadenoapthy Eyes: Extrocular muscles intact, anicteric CVS:RRR. S1, S2, No m/r/g RESP: CTAB ABD: Soft, NT, ND, +BS EXT: 1+ b/l LE edema, No rashes, 2+ DP NEURO: Nonfocal, CN II-XII intact, No focal motor or sensory deficits Psych: Cooperative, Not anxious or depressed - Assessment and Plan (1) Chest pain Current Visit: No Status: Acute Assessment and plan: Unclear if cardiac. Highly suspicious for PE. Describes pleuritic chest pain with radiation to the throat. Trops elevation is mild and possibly due to tachycardia. Will keep on tele and trend cardiac enzymes. Will get a CTA chest and rule out PE. Hard to start heparin or any anticoags with his platelets that low. Will get a stress test if negative for PE. No ASA given. check lipid panel and A1C for risk stratification purposes. Will add tums and PPI in case this is GI. Qualifiers: Chest pain type: chest pain on breathing Qualified Code(s): R07.1 - Chest pain on breathing; R07.81 - Pleurodynia (2) Syncope Current Visit: Yes Status: Acute Assessment and plan: Happened shortly after voiding. Possibly vasovagal. Will keep on tele. Trend cardiac enzymes. No need to get an echo as it was recently done. Will order carotid duplex. Qualifiers: Syncope type: unspecified Qualified Code(s): R55 - Syncope and collapse (3) History of hepatitis C Current Visit: No Status: Acute Assessment and plan: Treated previously. (4) CAD (coronary artery disease) Current Visit: No Status: Chronic Assessment and plan: c/w home meds Qualifiers: Coronary Disease-Associated Artery/Lesion type: [place] artery [place] vs. transplanted heart: [place] heart Associated angina: with other forms of angina Qualified Code(s): I25.118 - Atherosclerotic heart disease of [place] coronary artery with other forms of angina pectoris (5) COPD (chronic obstructive pulmonary disease) Current Visit: No Status: Chronic Assessment and plan: c/w home inhalers. O2 support. Qualifiers: COPD type: COPD with acute lower respiratory infection Qualified Code(s): J44.0 - Chronic obstructive pulmonary disease with acute lower respiratory infection (6) Chronic diastolic heart failure Current Visit: No Status: Chronic Assessment and plan: c/w home dose lasix. BNP mildly elevated. (7) Thrombocytopenia Current Visit: No Status: Chronic Assessment and plan: chronic. To follow up with heme (8) DVT prophylaxis Current Visit: No Status: Acute Assessment and plan: scds - Time Spent With Patient Total time spent is greater than 50% in coordination of care (as documented) at patient's floor/unit and/or counseling patient:
[2019-01-06] MEDS ORDERED: Isovue-370 500 ML BOTTLE IVP ONE (15:01)
[2019-01-06] MEDS ORDERED: Ondansetron 4 MG/2 ML VIAL IVP PRN (15:02)
[2019-01-06] MEDS ORDERED: Naloxone 0.4 MG/ML INJ IVP PRN (15:02)
[2019-01-06] MEDS ORDERED: MOM Conc 10 ML UD.LIQ PO PRN (15:02)
[2019-01-06] MEDS: Acetaminophen 325 MG TABLET PO PRN ×2 (16:14→21:50)
[2019-01-06] MEDS ORDERED: Heparin 1,000 UNITS/500 mL 500 ML ONE (17:10)
[2019-01-06] MEDS ORDERED: ISOVUE-250 150 ML INFUS..BTL ONE (17:10)
--- NOTE | 2019-01-06 17:37 | Vascular/Endovasc Consult Note ---
Date of Encounter: 01/06/19 Time of Encounter: 16:40 Assessment and Plan (1) Pulmonary embolus Current Visit: Yes Status: Acute The pathophysiology and natural history of venous thromboembolism was discussed with the patient and all questions were answered. The patient is an acute pulmonary embolus. He has bilateral lower extremity swelling. He has cirrhosis, COPD and severe thrombopenia. He cannot be anticoagulant due to his risk of bleeding.. Due to his poor pulmonary reserve he would not tolerate any further embolus. Therefore an inferior vena cava filter has been recommended. The risks, benefits and alternatives were discussed and all questions were answered. He expressed understanding and wishes to proceed. Qualifiers: Pulmonary embolism type: other Chronicity: acute Acute cor pulmonale presence: without acute cor pulmonale Qualified Code(s): I26.99 - Other pulmonary embolism without acute cor pulmonale (2) Cirrhosis Current Visit: No Status: Chronic Qualifiers: Hepatic cirrhosis type: unspecified hepatic cirrhosis Ascites presence: without ascites Qualified Code(s): K74.60 - Unspecified cirrhosis of liver (3) CAD (coronary artery disease) Current Visit: Yes Status: Chronic The patient was counter atherosclerotic risk factor reduction. Qualifiers: Coronary Disease-Associated Artery/Lesion type: [place] artery [place] vs. transplanted heart: [place] heart Associated angina: with other forms of angina Qualified Code(s): I25.118 - Atherosclerotic heart disease of [place] coronary artery with other forms of angina pectoris (4) COPD (chronic obstructive pulmonary disease) Current Visit: No Status: Chronic Qualifiers: COPD type: COPD with acute lower respiratory infection Qualified Code(s): J44.0 - Chronic obstructive pulmonary disease with acute lower respiratory infection - History of Present Illness Consult date: 01/06/19 Requesting physician: Shirin Navarro Consult reason: Pulmonary embolus Chief complaint: Chest pain History of present illness: Mr. Stevenson is a 68 year old male with a history of COPD requiring 3 L of oxygen by nasal cannula, chronic kidney disease, coronary artery disease, hepatitis with cirrhosis was experiencing progressive chest pain. He recently discharged from the hospital with pneumonia, COPD exacerbation and interstitial pulmonary edema. He was admitted to [facility] deduce chest pain and as part of his evaluation he underwent a CT scan. He is found have a pulmonary embolus. Given his comorbidities and chronic anemia vascular surgery was counseled for further evaluation. Appetite evaluation. The patient reports that his symptoms are decreasing but persist. Past Med Surg Social Fam HX - Past Medical History Medical history: cirrhosis, CHF, COPD, hepatitis, myocardial infarction, renal disease Psychiatric history: anxiety, depression, panic disorder - Past Surgical History Surgical History: angioplasty/stent Additional surgical history: CARDIAC STENT 1995 - Social History Smoking Status: Former smoker Alcohol use: rarely Drug use: none - Family History Mother Living Status: Hx Family Cancer: Yes (lung) Father Living Status: Hx Family Respiratory Disorders: Yes (COPD) Hx Family Cancer: Yes (lung) Medications and Allergies Albuterol Sulfate [Albuterol Inhaler] 2 puff IH Q6HR PRN 11/23/18 [History] Aspirin [Lo-Dose Aspirin EC] 81 mg PO DAILY 11/23/18 [History] Budesonide/Formoterol 160/4.5 [Symbicort 160/4.5] 2 puff IH BIDR 11/23/18 [History] Buspirone HCl [Buspar] 7.5 mg PO DAILY@1500 11/23/18 [History] Cholecalciferol (Vitamin D3) [Vitamin D3] 1,000 unit PO QDPC 11/23/18 [History] Pregabalin [Lyrica] 75 mg PO QDPC 11/23/18 [History] Tamsulosin HCl [Flomax] 0.4 mg PO DAILY 11/23/18 [History] Venlafaxine HCl [Venlafaxine HCl ER] 37.5 mg PO QAM 11/23/18 [History] clonazePAM [Clonazepam] 1 mg PO BID 11/23/18 [History] Furosemide [Lasix] 20 mg PO Q48H 12/12/18 [History] Nitroglycerin [Nitrostat] 0.4 mg SL Q5M PRN 12/12/18 [History] Oxygen 1 each .ROUTE AD 12/12/18 [History] Albuterol Neb [Proventil Neb] 2.5 mg IH TID 12/13/18 [History] Pantoprazole Sodium [Protonix] 40 mg PO DAILY 12/13/18 [History] Folic Acid 1 mg PO DAILY 01/06/19 [History] Allergy/AdvReac Type Severity Reaction Status Date / Time phenytoin [From Dilantin] AdvReac See Verified 01/06/19 21:58 Comments All Systems Review: The remainder of the systems were reviewed and are negative - Constitutional Constitutional: no chills, no fever(s) - Cardiovascular Cardiovascular: as per HPI Exam Vital Signs, Last 4 Hours Temp Pulse Resp BP Pulse Ox 01/06/19 16:11 99.6 F 118 18 99/58 95 01/06/19 14:51 98.9 F 114 18 114/78 95 General: Present: Conversant, No Apparent Distress HEENT: Present: Atraumatic, Normocephaly Neck: Absent: JVD, Lymphadenopathy, Left Carotid bruit, Right Carotid bruit Cardiac: Present: Reg Rate and Rhythm, Normal S1 and S2 Lungs: Present: Normal Breath Sounds, No Wheeze, Rales, Rhonchi Neuro: Present: Alert and responsive, No focal deficits noted, Motor nerves grossly intact, Sensory nerves grossly intact Abdomen: Present: Soft, Non-tender. Absent: Masses Vascular: Present: Normal capillary refill, Edema (Trace edema bilaterally). Absent: Cyanosis Skin: Present: No rashes noted on visualized skin Consult Discharge Plan - Plan Referrals: Roxanne Boggs MD [Partnered Physician] - (Per the office they will call the patient at home with a follow up appointment) Román Alvarado MD [Primary Care Provider] - 01/17/19 10:50 am
--- NOTE | 2019-01-06 18:24 | Invasive Diagnostic Lab Proc ---
Name: Tyler Stevenson Date of Study: 01/06/2019 Date: 1950 Ht: 170.0 in Medical Record#: [id number] Age: 68 Wt: 79 lb Gender: Male BSA: 1.91 Order #: [id number] BMI: 27.34 Physicians Performing MD: Stephen Temple MD Referring MD: Referring MD: Staff Name Position Time In Randi Escamilla RT Scrub Marlena Howard RN Monitor Randi Escamilla RT Scrub Madisyn Jackson RN Conformal Pad Former Indications Pulmonary Embolism Procedures Performed IVC FILTER PLACEMENT Pre-Procedure Checklist Blood Pressure: 99/58 Plan of Care Patient will tolerate the procedure without complications. Adequate level of comfort will be maintained. Hemodynamics will remain stable Patient will recover from procedure without complications. Respiratory function will be maintained. Cardiac rhythm will remain stable. Patient temperature will be maintained. Patient and/or family have verbalized understanding of the procedure. Patient Education Intravenous Access Time IV Size Location DC'd Fluid/Drip Rate Units RN 17:17 18g 1 /" Patent On Arrival Lt Arm Allergies phenytoin Vital Signs Time BP Systolic BP Diastolic HR O2 Sats ASA 05:17 PM 99 58 118 95 Procedure Medications Time Medication Dose Units Method Route 05:53 PM Lidocaine 2% 10 ml Subcutaneous [place] Score Preprocedure Postprocedure Activity 2- Moves 4 extremities sustained head lift Activity 2- Moves 4 extremities sustained head lift Circulation 2- SBP +/= 20 points of pre-anesthetic level Circulation 2- SBP +/= 20 points of pre-anesthetic level Consciousness 2- Awake and alert oriented x 3 Consciousness 2- Awake and alert oriented x 3 O2 Saturation 2- Able to maintain O2 satruation of 92% on room air O2 Saturation 2- Able to maintain O2 satruation of 92% on room air Respiratory 2- Able to deep breathe and cough well Respiratory 2- Able to deep breathe and cough well Total Score 10 Total Score 10 Contrast: Isovue 250- 150ml Contrast Amount: 10 ml Fluoro Dose: 223 mGy Procedure Log Time Note Entered By 05:17 PM Randi Escamilla Position: Scrub Time in: 17:17 darion 05:41 PM Pt arrived to dye lab technician 1 at 17:41 [facility] PM Soummers, Marlena RN Position: Monitor Time in: 17:41 05:41 PM Madisyn Jackson RN Position: Conformal Pad Former Time in: 17:41 05:41 PM Case delayed: No kk 05:49 PM Physician arrived 17:49 05:49 PM Meet and greet completed 05:49 PM Sign in performed according to hospital policy. [facility] 05:49 PM Procedure start 17:49 05:49 PM no sedation will be administered 05:49 PM Hair removed from procedure site in procedure lab using clippers. Bilateral groin prepped with Chloraprep by Madisyn Jackson RN, then patient was draped. Skin intact. 05:51 PM Time out perfomed 05:52 PM Ultrasound, Sonosite, utilized to obtain vascular access 05:53 PM 17:53 10 ml Lidocaine 2% to right groin Subcutaneous Given By Stephen Temple MD [facility] 05:54 PM Patient Charges- Prosettat IVC Filter SN/LOT# [id number],Tray Pack and Pulse Oximetry. 05:54 PM Access obtain and IVC Filter sheath inserted Rt Femoral vein. 05:55 PM Inferiorvenacavagram performed. 05:56 PM 5cc contrast administered by Dr. Temple milton 05:57 PM IVC Filter inserted into the inferior vena cava 05:57 PM 5cc contrast administered by Dr. Maverick cage 05:58 PM Procedure completed at 17:58 [facility] 05:59 PM Sign Out completed: Radiation Dose 223.01 mGy Fluoro Time: 0.8 minutes. Isovue 250- 150ml contrast 10 ml given by Stephen Temple MD. Complications: None. Confirmed administered medications:Yes Sedation minutes 0 [facility] 06:00 PM Isovue 250- 150ml,1 bottle(s) used. [facility] 06:00 PM Arterial sheath pulled using manual compression and V+Pad for 15 minutes by Randi Escamilla RT [facility] 06:00 PM Estimated Blood Loss: minimal [facility] 06:00 PM Information taught: IVC filter [facility] 06:00 PM Education needs: Procedure, Plan of Care, and Responsibilities of Patient in Care [facility] 06:00 PM Learning barriers: None [facility] PM Education methods: Verbal [facility] PM Education evaluation: Able to repeat information [facility] 06:00 PM Patient pain level 0/[facility] PM Report given to Verna VAIL. Pt taken to 2A, Room # 63 18:00 [facility]01 PM Delay to floor: No [email or web address] 06:01 PM no family present [facility]:01 PM Complications: [facility] 06:13 PM Site status No bleeding/hematoma - Rt Groin as reported by Randi Escamilla RT at 18:13 [facility] 06:[address] [facility] 06:13 PM Patient out of room 18:13 [facility] Post Procedure Information Post procedure instructions given Report Given To: shilpi Site Checks Time Location Status Staff Sheath In? Note 6:13:00 PM Rt Groin No bleeding/hematoma Randi Escamilla RT Updated by Marlena Howard RN on 01/06/2019 6:14:28 PM electronically signed on 01/06/2019 6:14:51 PM with status of Final
--- NOTE | 2019-01-06 18:26 | Procedure Note ---
Date of procedure: 01/06/19 Pre-op diagnosis: Pulmonary embolus with thrombocytopenia Post-op diagnosis: same Procedure: Inferior venacavogram, placement of Celect inferior vena cava filter via right common femoral vein. Direct pressure held for hemostasis. Anesthesia: local Surgeon: Stephen Temple Was there an dental assistant instructor present: No Estimated blood loss (cc): 1 Specimen: None Condition: stable Disposition: floor
[2019-01-06] MEDS: Nitroglycerin 0.4 MG TAB.SUBL SL PRN (21:44)
[2019-01-06] MEDS: Ipratropium/Albuterol Neb 3 ML IH PRN (22:02)
[2019-01-07] MEDS: Nitroglycerin 0.4 MG TAB.SUBL SL PRN ×2 (00:43→22:34)
[2019-01-07] MEDS: Ipratropium/Albuterol Neb 3 ML IH PRN ×3 (04:18→20:56)
[2019-01-07 05:51] LABS: Basophils % 0.3 %; Mean Corpuscular Hemoglobin 26.9 pg (28.0-33.3)
[2019-01-07 05:53] LABS: Eosinophils % 0.5 %; Hematocrit 40.4 % (37.5-50.1); Hemoglobin 12.4 g/dL (12.9-16.9); Immature Granulocytes % 0.5 % (0-4); Lymphocytes # 0.4 K/mcL (0.6-4.6); Lymphocytes % 9.3 %; Mean Corpuscular HGB Conc 30.7 g/dL (31.6-35.5); Mean Corpuscular Volume 87.6 fL (83.0-100.0); Monocytes # 0.4 K/mcL (0.0-1.3); Monocytes % 10.9 %; Red Blood Count 4.61 M/mcL (4.19-5.50); Red Cell Distribution Width 21.7 % (11.5-14.5); Segmented Neutrophils % 78.5 %
[2019-01-07 05:59] LABS: Neutrophils # 3.1 K/mcL (1.6-8.9)
[2019-01-07 06:00] LABS: Platelet Count 28 K/mcL (140-400)
[2019-01-07 06:08] LABS: BUN/Creatinine Ratio 16 (6-26); Blood Urea Nitrogen 20 mg/dL (8-23); Calcium 9.1 mg/dL (8.6-10.3); Carbon Dioxide 36 mEq/L (23-29); Chloride 97 mEq/L (98-107); Chol/HDL Ratio 2.1 (0-4.9); Cholesterol 155 mg/dL (< 200); Glucose 129 mg/dL (70-105); HDL Cholesterol 74 mg/dL (40-59); LDL Cholesterol,Calculated 68 mg/dL (0-99); Magnesium 1.5 mg/dL (1.6-2.6); Osmolality,Calculated 284 (280-300); Potassium 4.2 mEq/L (3.5-5.1); Sodium 135 mEq/L (136-145); Triglycerides 67 mg/dL (< 150); eGFR For Non-African Americans 57 (> 60)
[2019-01-07] MEDS ORDERED: Perflutren Lipid Microsphere 1.3 ML in 0.9 % Sodium Chloride 8.7 ML IVP ONE (07:14)
--- NOTE | 2019-01-07 09:39 | Discharge Summary ---
Orders not resulted at time of discharge: Pending orders 01/07/19 05:12 Hgb A1C AM 0400 Date of Encounter: 01/07/19 Time of Encounter: 09:37 - Discharge Diagnosis (1) Pulmonary embolus Priority: Primary Status: Acute Qualifiers: Pulmonary embolism type: other Chronicity: acute Acute cor pulmonale presence: without acute cor pulmonale Qualified Code(s): I26.99 - Other pulmonary embolism without acute cor pulmonale (2) Chest pain Priority: Primary Status: Acute Qualifiers: Chest pain type: chest pain on breathing Qualified Code(s): R07.1 - Chest pain on breathing; R07.81 - Pleurodynia (3) Syncope Priority: Primary Status: Acute Qualifiers: Syncope type: unspecified Qualified Code(s): R55 - Syncope and collapse (4) History of hepatitis C Priority: Secondary Status: Acute (5) CAD (coronary artery disease) Priority: Secondary Status: Chronic Qualifiers: Coronary Disease-Associated Artery/Lesion type: [place] artery [place] vs. transplanted heart: [place] heart Associated angina: with other forms of angina Qualified Code(s): I25.118 - Atherosclerotic heart disease of [place] coronary artery with other forms of angina pectoris (6) COPD (chronic obstructive pulmonary disease) Priority: Secondary Status: Chronic Qualifiers: COPD type: COPD with acute lower respiratory infection Qualified Code(s): J44.0 - Chronic obstructive pulmonary disease with acute lower respiratory infection (7) Chronic diastolic heart failure Priority: Secondary Status: Chronic (8) Thrombocytopenia Priority: Secondary Status: Chronic Hospital course: Mr. Stevenson is a 68 year old male with a past medical history of cirrhosis, COPD on 3 L home oxygen, CKD3, hepatitis C, CAD with one stent in the , thrombocytopenia, who presents as transfer from [facility] due to complaints of chest pain. Had a recent hospitalization and discharged 12/15 for sepsis due to multifocal pneumonia, COPD exacerbation, and interstitial pulmonary edema. Needed ICU stay then. Was noted to have thrombocytopenia then and seen by hematology who he is to follow up with. Chest pain been going on for 2-3 weeks but has developed worsening of it the morning of admission. Nitro did not help. Substernal and goes into throat area. Pleuritic in nature. Reported dyspnea and diaphoresis as well. Has lower extremity swelling but told me this is his baseline. Also said he had "passed out" 2 days ago at home. Was out for about 3 minutes. Had just come out of the bathroom after voiding and his heart rate had went up to the 200s and felt "sick" and " just passed out." His child daycare worker's daughter was there to hold him and helped get him up and take him to his bed. He gets 24/7 care at home. Does not describe any other symptoms associated with the episode. Upon presentation there he is tachycardic and in sinus. Trops came back elevated at .05 and remained around that. Ended up getting a CTA chest which showed acute single subsegmental right upper lobe PE. Couldn't anticoagulate due to severe thrombocytopenia. Consulted with Vascular and an IVC filter was placed by them. Patient tested negative for DVT in lower extremities but Dr. Temple felt IVC filter would help. He was discharged the following day. No anticoags were perscribed. Discharged 01/07/2019. EKG with no acute changes. There is LBBB but seems to be old. CXR showed resolution of previous pneumonia. BNP was 34. Creatinine 1.1, BUN 15. Platelets 32, WBC 4.2, Hgb 13.4. He is on 3L NC which is his chronic needs. - Time Spent with Patient Total time spent providing and/or coordinating discharge services: Time spent: Greater than 30 minutes - Discharge Medications Prescriptions: New HYDROcodone/Acet 5/325 mg [[place] 5-325 mg] 1 tab PO Q4HR PRN 3 Days #18 tablet PRN Reason: Moderate Pain Continued Pregabalin [Lyrica] 75 mg PO QDPC clonazePAM [Clonazepam] 1 mg PO BID Buspirone HCl [Buspar] 7.5 mg PO DAILY@1500 Aspirin [Lo-Dose Aspirin EC] 81 mg PO DAILY Tamsulosin HCl [Flomax] 0.4 mg PO DAILY Budesonide/Formoterol 160/4.5 [Symbicort 160/4.5] 2 puff IH BIDR Venlafaxine HCl [Venlafaxine HCl ER] 37.5 mg PO QAM Cholecalciferol (Vitamin D3) [Vitamin D3] 1,000 unit PO QDPC Albuterol Sulfate [Albuterol Inhaler] 2 puff IH Q6HR PRN PRN Reason: SOB/WHEEZING Albuterol Neb [Proventil Neb] 2.5 mg IH TID Pantoprazole Sodium [Protonix] 40 mg PO DAILY Folic Acid 1 mg PO DAILY Oxygen 1 each .ROUTE AD Furosemide [Lasix] 20 mg PO Q48H Nitroglycerin [Nitrostat] 0.4 mg SL Q5M PRN PRN Reason: Chest Pain Home Medications: Albuterol Sulfate [Albuterol Inhaler] 2 puff IH Q6HR PRN 11/23/18 [History] Aspirin [Lo-Dose Aspirin EC] 81 mg PO DAILY 11/23/18 [History] Budesonide/Formoterol 160/4.5 [Symbicort 160/4.5] 2 puff IH BIDR 11/23/18 [History] Buspirone HCl [Buspar] 7.5 mg PO DAILY@1500 11/23/18 [History] Cholecalciferol (Vitamin D3) [Vitamin D3] 1,000 unit PO QDPC 11/23/18 [History] Pregabalin [Lyrica] 75 mg PO QDPC 11/23/18 [History] Tamsulosin HCl [Flomax] 0.4 mg PO DAILY 11/23/18 [History] Venlafaxine HCl [Venlafaxine HCl ER] 37.5 mg PO QAM 11/23/18 [History] clonazePAM [Clonazepam] 1 mg PO BID 11/23/18 [History] Furosemide [Lasix] 20 mg PO Q48H 12/12/18 [History] Nitroglycerin [Nitrostat] 0.4 mg SL Q5M PRN 12/12/18 [History] Oxygen 1 each .ROUTE AD 12/12/18 [History] Albuterol Neb [Proventil Neb] 2.5 mg IH TID 12/13/18 [History] Pantoprazole Sodium [Protonix] 40 mg PO DAILY 12/13/18 [History] Folic Acid 1 mg PO DAILY 01/06/19 [History] HYDROcodone/Acet 5/325 mg [[place] 5-325 mg] 1 tab PO Q4HR PRN 3 Days #18 tablet 01/07/19 [Rx] Allergies/Adverse Reactions: Allergy/AdvReac Type Severity Reaction Status Date / Time phenytoin [From Dilantin] AdvReac See Verified 01/06/19 21:58 Comments Date of admission: 01/06/19 14:25 Primary care physician: Román Alvarado MD Consults: 01/06/19 14:59 Consult to Occupational Therapy [CONS] Routine Comment: Evaluate, develop and implement POC Reason for Consult: therapy/placement needs Does patient have active BEDREST order?: No Is patient medically & hemodynamically stable?: Yes Consult to Physical Therapy [CONS] Routine Comment: Evaluate, develop and implement POC Reason for Consult: PT eval Does patient have active BEDREST order?: No Is patient medically & hemodynamically stable?: Yes 01/06/19 16:22 Consult to Vascular Surgery [CONS] Routine Consulting Provider: Vascular Surgery [facility] Reason for Consult: New PE. Low platelets. Cant anticoagulate. Would IVC be beneficial Call Completed: Yes - Constitutional Vitals: Temp Pulse Resp BP Pulse Ox 98.3 F 109 22 106/74 98 01/07/19 03:34 01/07/19 03:34 01/07/19 04:18 01/07/19 03:34 01/07/19 04:18 Exam: GEN: NAD HEENT: AT, NC, No cyanosis, oral mucosa is moist, No JVD Lymphatics: No lymphadenoapthy Eyes: Extrocular muscles intact, anicteric CVS:RRR. S1, S2, No m/r/g RESP: CTAB ABD: Soft, NT, ND, +BS EXT: 1+ b/l LE edema, No rashes, 2+ DP NEURO: Nonfocal, CN II-XII intact, No focal motor or sensory deficits Psych: Cooperative, Not anxious or depressed - Patient Status Disposition: Home, Self-Care Condition: Fair Overall status at discharge: patient is progressing back to baseline - Discharge Instructions Follow Up With: Román Alvarado MD [Primary Care Provider] - - Diet and Activity Activity: increase activity as tolerated Diet: regular diet - VTE Reasons for not Prescribing Prophylaxis: Medical contraindication
[2019-01-07] MEDS: *HR* HYDROcodone/Acet 5/325 mg TABLET PO PRN ×4 (10:00→23:02)
[2019-01-07 11:42] LABS: Estimated Average Glucose 114 mg/dl; Hemoglobin A1C 5.6 %
--- NOTE | 2019-01-07 12:40 | Internal Med Progress Note ---
Hospitalist Progress Note - Encounter Date of Encounter: 01/07/19 Time of Encounter: 12:37 - Subjective Interval History: Patient was seen and examined. I was called by the adult probation officer stating his EF was noted to be 25-30% on the limited echo I ordered yesterday. This is new for him. He had an IVC filter placed yesterday by Dr. Temple. He complains of pleuritic chest pain still. No anticoags given. Trops .05, .06, .04. Hemodnamically stable. - Exam Vitals: Temp Pulse Resp BP Pulse Ox 98.7 F 129 20 121/74 92 01/07/19 10:56 01/07/19 10:56 01/07/19 10:56 01/07/19 10:56 01/07/19 10:56 Exam: GEN: NAD CVS:RRR. S1, S2, No m/r/g RESP: CTAB ABD: Soft, NT, ND, +BS EXT: 1+ b/l LE edema, No rashes, 2+ DP NEURO: Nonfocal, CN II-XII intact, No focal motor or sensory deficits - Assessment and Plan (1) Pulmonary embolus Current Visit: Yes Status: Acute Assessment and Plan: Had an IVC filter placed by Dr. Temple. No DVT noted but Dr. Temple felt patient would benefit. Not a candidate for anticoags due to low platelets. Echo showed new EF of 25-30%. (2) NSTEMI (non-ST elevated myocardial infarction) Current Visit: Yes Status: Acute Assessment and Plan: Type I vs Type II. Difficult case with thrombocytopenia. Cardiology is consulted. New EF of 25-30% and previous echo on 11/24 had an EF of 50%. Also has mild RV dysfunction. He would not be a good candidate for thrombolysis therapy due to severe thromboytopenia. This could be all acute due to the acute PE but has a history of CAD and has chest pain still (although pleuritic) with radiation to the throat. Has elevated trops on admission that did not trend up siginificantly. Even if he goes for a [facility], it would be hard to put him on DAPT if he is to get a stent. Cardiology to see. Maybe best to have a repeat echo down the road. (3) Chest pain Current Visit: No Status: Acute Assessment and Plan: Unclear if cardiac. Possibly pleuritic from PE. Does describe chest pain radiating to throat. Trops elevation is mild and possibly due to tachycardia and PE. Trops .05, .06, .04. New low EF of 25-30%. Consult to Cardiology. Will keep on tele No ASA given. (4) Syncope Current Visit: Yes Status: Acute Assessment and Plan: Happened shortly after voiding at home. Possibly vasovagal but with findings of PE and new low EF, those could be causes as well. Will keep on tele. carotid duplex negative. consult cardiology (5) History of hepatitis C Current Visit: No Status: Acute Assessment and Plan: Treated previously. (6) CAD (coronary artery disease) Current Visit: No Status: Chronic Assessment and Plan: c/w home meds (7) COPD (chronic obstructive pulmonary disease) Current Visit: No Status: Chronic Assessment and Plan: c/w home inhalers. O2 support. (8) Chronic diastolic heart failure Current Visit: No Status: Chronic Assessment and Plan: c/w home dose lasix. BNP mildly elevated. (9) Thrombocytopenia Current Visit: No Status: Chronic Assessment and Plan: chronic. To follow up with heme (10) Goals of care, counseling/discussion Current Visit: Yes Status: Acute Assessment and Plan: Had put a conditional discharge and done his med recs but cancelled after finding out about the echo findings. - Time Spent with Patient Total time spent is greater than 50% in coordination of care (as documented) at patient's floor/unit and/or counseling patient: Internal Medicine: Result - Labs CBC & Chem 7: 01/07/19 05:12 01/07/19 05:12 Labs: Short CBC 01/07/19 Range/Units 05:12 WBC 3.9 L (4.3-11.1) K/mcL Hgb 12.4 L (12.9-16.9) g/dL Hct 40.4 (37.5-50.1) % Plt Count 28 L* (140-400) K/mcL Neutrophils # 3.1 (1.6-8.9) K/mcL BMP 01/07/19 05:12 Sodium 135 L Potassium 4.2 Chloride 97 L Carbon Dioxide 36 H BUN 20 Creatinine 1.27 Glucose 129 H Calcium 9.1 Cardiac Enzymes 01/06/19 01/06/1919 Range/Units 15:22 20:49 05:12 Troponin I 0.05 H* 0.06 H* 0.04 H* (< 0.04) ng/mL - Impressions Impressions Chest CTA 01/06/19 15:01 IMPRESSION: New, single subsegmental right upper lobe pulmonary artery embolism. Multifocal left upper and lower lobe consolidation has nearly completely resolved. Small, partially loculated left pleural effusion has mildly increased in size since the prior examination. Small right pleural effusion is unchanged. D/ / 01/06/2019 16:08:24 Dickson Dillard MD / lgray Interpreting Provider: Dickson Dillard MD Echocardiogram Limited Views 01/07/19 16:15 Impressions: LVEF 25-30%. Severe global left ventricular systolic dysfunction. Mildly dilated left ventricle. Mild RV dysfunction function. Ordering physician notified via [employer]. Left Ventricular Wall Motion: Rest Echo Findings The apex, apical inferior, mid inferior, basal inferior, apical anterior, mid anterior, basal anterior, apical septal, mid inferior septal, basal inferior septal, apical lateral, mid anterior lateral, basal anterior lateral, mid anterior septal, mid inferior lateral, basal anterior septal and basal inferior lateral boudreaux were hypokinetic. Findings: Study Quality * Technically adequate exam. ECG Findings * Sinus tachycardia, BBB. Left Ventricle * LVEF 25-30%. * Mildly dilated left ventricle. * Severe global left ventricular systolic dysfunction. * Definity echo contrast was used. * Atypical septal motion consistent with bundle branch block. Right Ventricle * RV not well visualized, grossly normal right ventricular structure mild dysfunction function. Left Atrium * Mildly dilated left atrium. Right Atrium * Right atrium is not well visualized. Pericardium * There is a small pericardial effusion present. * There is no echocardiographic evidence of tamponade. - VTE Reasons for not Prescribing Prophylaxis: Medical contraindication Consult Discharge Plan - Plan Referrals: Román Alvarado MD [Primary Care Provider] - Prescriptions: HYDROcodone/Acet 5/325 mg [[place] 5-325 mg] 1 tab PO Q4HR PRN 3 Days #18 tablet PRN Reason: Moderate Pain (1) Pulmonary embolus Qualifiers: Pulmonary embolism type: other Chronicity: acute Acute cor pulmonale presence: without acute cor pulmonale Qualified Code(s): I26.99 - Other pulmonary embolism without acute cor pulmonale (3) Chest pain Qualifiers: Chest pain type: chest pain on breathing Qualified Code(s): R07.1 - Chest pain on breathing; R07.81 - Pleurodynia (4) Syncope Qualifiers: Syncope type: unspecified Qualified Code(s): R55 - Syncope and collapse (6) CAD (coronary artery disease) Qualifiers: Coronary Disease-Associated Artery/Lesion type: [place] artery [place] vs. transplanted heart: [place] heart Associated angina: with other forms of angina Qualified Code(s): I25.118 - Atherosclerotic heart disease of [place] coronary artery with other forms of angina pectoris (7) COPD (chronic obstructive pulmonary disease) Qualifiers: COPD type: COPD with acute lower respiratory infection Qualified Code(s): J44 .0 - Chronic obstructive pulmonary disease with acute lower respiratory infection
[2019-01-07] MEDS ORDERED: Furosemide 20 MG TABLET PO SCH (13:45)
[2019-01-07] MEDS: clonazePAM 1 MG TABLET PO SCH (20:42)
[2019-01-07] MEDS: Budesonide/Formoterol 160/4.5 1 PUFF INH IH SCH (20:57)
[2019-01-08 04:52] LABS: Basophils % 0.3 %; Immature Granulocytes % 0.5 % (0-4); Red Cell Distribution Width 21.5 % (11.5-14.5)
[2019-01-08 04:54] LABS: Eosinophils % 0.5 %; Hematocrit 40.1 % (37.5-50.1); Hemoglobin 12.1 g/dL (12.9-16.9); Immature Platelets 14.8 % (1.1-6.1); Lymphocytes # 0.3 K/mcL (0.6-4.6); Lymphocytes % 7.6 %; Mean Corpuscular HGB Conc 30.2 g/dL (31.6-35.5); Mean Corpuscular Hemoglobin 26.8 pg (28.0-33.3); Mean Corpuscular Volume 88.9 fL (83.0-100.0); Monocytes # 0.4 K/mcL (0.0-1.3); Monocytes % 10.2 %; Neutrophils # 3.1 K/mcL (1.6-8.9); Red Blood Count 4.51 M/mcL (4.19-5.50); Segmented Neutrophils % 80.9 %
[2019-01-08 05:15] LABS: BUN/Creatinine Ratio 16 (6-26); Blood Urea Nitrogen 23 mg/dL (8-23); Calcium 9.3 mg/dL (8.6-10.3); Carbon Dioxide 35 mEq/L (23-29); Chloride 95 mEq/L (98-107); Glucose 122 mg/dL (70-105); Magnesium 1.5 mg/dL (1.6-2.6); Osmolality,Calculated 285 (280-300); Sodium 135 mEq/L (136-145); eGFR For Non-African Americans 50 (> 60)
[2019-01-08 05:33] LABS: Platelet Count 37 K/mcL (140-400)
[2019-01-08 05:34] LABS: Anisocytosis 2+ (Not Present); Platelet Estimate Decreased (Normal)
[2019-01-08 05:35] LABS: Polychromasia 1+ (Not Present)
[2019-01-08] MEDS: Nitroglycerin 0.4 MG TAB.SUBL SL PRN ×2 (06:40→06:47)
[2019-01-08] MEDS ORDERED: *HR* Metoprolol 5 MG/5 ML VIAL IVP ONE ×3 (06:40→16:42)
[2019-01-08] MEDS: Pregabalin 75 MG CAPSULE PO SCH (07:35)
[2019-01-08] MEDS: *HR* HYDROcodone/Acet 5/325 mg TABLET PO PRN ×3 (07:35→20:05)
[2019-01-08] MEDS: Venlafaxine XR (24 HR) 37.5 MG CAP.ER.24H PO SCH (07:36)
[2019-01-08] MEDS: Folic Acid 1 MG TABLET PO SCH (07:36)
[2019-01-08] MEDS: clonazePAM 1 MG TABLET PO SCH ×2 (07:36→20:02)
[2019-01-08] MEDS: Cholecalciferol (D-3) 1,000 UNIT TABLET PO SCH (07:36)
[2019-01-08] MEDS ORDERED: Furosemide 40 MG/4 ML VIAL IVP SCH (09:49)
--- NOTE | 2019-01-08 10:08 | Internal Med Progress Note ---
Hospitalist Progress Note - Encounter Date of Encounter: 01/08/19 Time of Encounter: 07:45 - Subjective Interval History: He continues to report LE swelling and dyspnea on exertion. No chest pain. - Exam Vitals: Temp Pulse Resp BP Pulse Ox 98.6 F 99 20 112/74 95 01/08/19 07:40 01/08/19 07:40 01/08/19 07:40 01/08/19 07:40 01/08/19 07:40 Exam: GEN: NAD CVS:RRR. S1, S2, No m/r/g RESP: Bibasilar Rales at the lung bases ABD: Soft, NT, ND, +BS EXT: 1+ b/l LE edema, No rashes, 2+ DP NEURO: Nonfocal, CN II-XII intact, No focal motor or sensory deficits - Assessment and Plan (1) Pulmonary embolus Current Visit: Yes Status: Acute Assessment and Plan: Had an IVC filter placed by Dr. Temple on 01/06. No DVT noted but Dr. Temple felt patient would benefit. Not a candidate for anticoags due to low platelets. Echo showed new EF of 25-30% for which he will need further workup; see below (2) Acute heart failure with reduced ejection fraction and diastolic dysfunction Current Visit: Yes Status: Acute Assessment and Plan: New EF of 25-30% and previous echo on 11/24 showed EF of 50%. hx of CAD s/p remote PCI ~ 20 years ago troponin 0.05-0.06-0.04, not consistent with ACS resume ASA given his persistent symptoms, will switch Lasix to IV 20 mg daily start bb, will add ZE-i if his BP tolerates cardiology consult (3) Atrial fibrillation Current Visit: Yes Status: Acute Assessment and Plan: Appears the patient had a brief episode of atrial fibrillation with a rate of 109 unable to anticoagulate and had IVC filter placed for PE on 01/06 telemetry will start bb for rate control (4) NSTEMI (non-ST elevated myocardial infarction) Current Visit: Yes Status: Acute Assessment and Plan: troponin as above, follow with cardiology (5) Syncope Current Visit: Yes Status: Acute Assessment and Plan: Happened shortly after voiding at home. Possibly vasovagal but with findings of PE and new low EF, those could be causes as well. Carotid duplex negative. had an episode of afib with ventricular rate of 109, underlying arrhythmia could also play a role here. STarted on bb as above consult cardiology (6) CAD (coronary artery disease) Current Visit: No Status: Chronic Assessment and Plan: c/w home meds (7) Thrombocytopenia Current Visit: No Status: Chronic Assessment and Plan: chronic, likely due to cirrhosis (8) COPD (chronic obstructive pulmonary disease) Current Visit: No Status: Chronic Assessment and Plan: not in exacerbation resume home inhalers (9) History of hepatitis C Current Visit: No Status: Acute Assessment and Plan: Treated previously DVT Prophylaxis: EPCD given thrombocytopenia - Time Spent with Patient Total time spent is greater than 50% in coordination of care (as documented) at patient's floor/unit and/or counseling patient: 25 - 35 minutes Plan of Care Discussed with: patient Internal Medicine: Result - Labs CBC & Chem 7: 01/08/19 04:03 01/08/19 04:03 Labs: Short CBC 01/08/19 Range/Units 04:03 WBC 3.8 L (4.3-11.1) K/mcL Hgb 12.1 L (12.9-16.9) g/dL Hct 40.1 (37.5-50.1) % Plt Count 37 L (140-400) K/mcL Neutrophils # 3.1 (1.6-8.9) K/mcL BMP 01/08/19 04:03 Sodium 135 L Potassium 4.0 Chloride 95 L Carbon Dioxide 35 H BUN 23 Creatinine 1.41 H Glucose 122 H Calcium 9.3 - Impressions Impressions Echocardiogram Limited Views 01/07/19 16:15 Impressions: LVEF 25-30%. Severe global left ventricular systolic dysfunction. Mildly dilated left ventricle. Mild RV dysfunction function. Ordering physician notified via [employer]. Left Ventricular Wall Motion: Rest Echo Findings The apex, apical inferior, mid inferior, basal inferior, apical anterior, mid anterior, basal anterior, apical septal, mid inferior septal, basal inferior septal, apical lateral, mid anterior lateral, basal anterior lateral, mid anterior septal, mid inferior lateral, basal anterior septal and basal inferior lateral boudreaux were hypokinetic. Findings: Study Quality * Technically adequate exam. ECG Findings * Sinus tachycardia, BBB. Left Ventricle * LVEF 25-30%. * Mildly dilated left ventricle. * Severe global left ventricular systolic dysfunction. * Definity echo contrast was used. * Atypical septal motion consistent with bundle branch block. Right Ventricle * RV not well visualized, grossly normal right ventricular structure mild dysfunction function. Left Atrium * Mildly dilated left atrium. Right Atrium * Right atrium is not well visualized. Pericardium * There is a small pericardial effusion present. * There is no echocardiographic evidence of tamponade. - VTE Reasons for not Prescribing Prophylaxis: Medical contraindication Consult Discharge Plan - Plan Referrals: Román Alvarado MD [Primary Care Provider] - (1) Pulmonary embolus Qualifiers: Pulmonary embolism type: other Chronicity: acute Acute cor pulmonale presence: without acute cor pulmonale Qualified Code(s): I26.99 - Other pulmonary embolism without acute cor pulmonale (3) Atrial fibrillation Qualifiers: Atrial fibrillation type: paroxysmal Qualified Code(s): I48.0 - Paroxysmal atrial fibrillation (5) Syncope Qualifiers: Syncope type: unspecified Qualified Code(s): R55 - Syncope and collapse (6) CAD (coronary artery disease) Qualifiers: Coronary Disease-Associated Artery/Lesion type: [place] artery [place] vs. transplanted heart: [place] heart Associated angina: with other forms of angina Qualified Code(s): I25.118 - Atherosclerotic heart disease of [place] coronary artery with other forms of angina pectoris (8) COPD (chronic obstructive pulmonary disease) Qualifiers: COPD type: COPD with acute lower respiratory infection Qualified Code(s): J44.0 - Chronic obstructive pulmonary disease with acute lower respiratory infection
[2019-01-08] MEDS ORDERED: Metoprolol XL (24 HR) Succ 25 MG TAB.ER.24H PO SCH (10:15)
--- NOTE | 2019-01-08 10:31 | Cardiology Consult Note ---
Date of Encounter: 01/08/19 Time of Encounter: 10:00 Assessment and Plan (1) Cardiomyopathy Current Visit: Yes Status: Acute Newly reduced EF noted on echocardiogram this hospital stay. Previously 50%, now 25-30%. Ideally, would consider cardiac catheterization to evaluate for obstructive CAD as etiology of cardiomyopathy. However, due to other sis rbidities including acute PE, cirrhosis, as well as severe thrombocytopenia, cardiac catheterization contraindicated at this time. Would ideally prefer platelet count to be >50K before considering catheterization. Also concerned regarding cirrhosis and possible presence of esophageal varices. No evidence of GI bleeding at this time, GI evaluation in progress. Would treat medically- will increase metoprolol succinate, add low dose nitrates if BP tolerates. Will also add ZE-I if BP tolerates. Qualifiers: Cardiomyopathy type: ischemic Qualified Code(s): I25.5 - Ischemic cardiomyopathy (2) Elevated troponin Current Visit: Yes Status: Acute Suspect demand ischemia in setting of acute PE. Do not think ACS. (3) Atrial flutter with rapid ventricular response Current Visit: Yes Status: Acute Will check EKG, but suspect palpitations due to atrial flutter with RVR as noted on telemetry this AM. Will increase beta blockade. May need to consider amiodarone since unable to anticoagulate. (4) Acute on chronic systolic heart failure Current Visit: Yes Status: Acute Continue diuresis. (5) Chest pain Current Visit: Yes Status: Acute Suspect CP related to acute PE, but cannot exclude underlying ischemia from CAD as well. Will titrate antianginals. Qualifiers: Chest pain type: chest pain on breathing Qualified Code(s): R07.1 - Chest pain on breathing; R07.81 - Pleurodynia (6) CAD (coronary artery disease) Current Visit: Yes Status: Chronic Aggressive medical therapy at this time. Qualifiers: Coronary Disease-Associated Artery/Lesion type: [place] artery [place] vs. transplanted heart: [place] heart Associated angina: with other forms of angina Qualified Code(s): I25.118 - Atherosclerotic heart disease of [place] coronary artery with other forms of angina pectoris (7) Pulmonary embolus Current Visit: Yes Status: Acute S/P IVC filter. Management per primary service. Qualifiers: Pulmonary embolism type: other Chronicity: acute Acute cor pulmonale presence: without acute cor pulmonale Qualified Code(s): I26.99 - Other pulmo nary embolism without acute cor pulmonale Discussion w patient/family: The assessment and plan as outlined above was discussed with the patient and/or family members who expressed understanding and agreement. All questions were answered. Thank you for involving us in the care of your patient. Please call with any questions. History of Present Illness Consult date: 01/08/19 Requesting physician: Shirin Navarro Consult reason: decreased EF Chief complaint: CP, dyspnea, palpitations History of present illness: Mr. Stevenson is a 68 year old male with CAD s/p PCI 1995, hepatitis C, cirrhosis, thrombocytopenia, COPD presented as transfer from [facility] with c/o CP. Diagnosed with PE. IVC filter placed. Pt states that at home for the past 2-3 weeks he has had progessively worsening dyspnea on exertion. Cannot even get up from chair to go to bathroom without noticing severe dyspnea, chest/throat tightness and palpitations. A few days [employer], reportedly had syncopal episode after voiding in bathroom. Per pt, he had noted HR up in 200s and felt lightheaded, nauseated, and had LOC for few minutes. No family present. Has had several recent hospital stays for SOB recently- Nov 2018 dx with COPD exacerbation. Hospitalized again in Dec 2018 with respiratory failure/pneumonia/sepsis. Echocardiogram while hospitalized in Nov 2018- EF 50%, low normal LV systolic function, mild LVE, mild LVDD, normal RV size/function, no significant VHD. Repeat echocardiogram yesterday demonstrates new finding of LV dysfunction with EF 25-30%, mild LVE, mild RV dysfunction. Valves not assessed. Also noted to have mild increase in troponins to 0.05, 0.05, 0.06, 0.04. No cardiac catheterizations since 1995. Was scheduled to have stress test as outpatient in November, but did not have due to hospitalization for COPD exacerbation. EKG demonstrates sinus tachycardia with LBBB. This AM on telemetry, noted to have HR 160s- a flutter with RVR. Converted to NSR with IV Lopressor. Past Med Surg Social Fam HX - Past Medical History Source: patient, old records reviewed Medical history: cirrhosis, CHF, COPD, coronary artery disease, GERD, hepatitis (hepatitis C), myocardial infarction, renal disease Psychiatric history: anxiety, depression, panic disorder, PTSD - Past Surgical History Surgical History: angioplasty/stent Additional surgical history: CARDIAC STENT 1995 - Social History Smoking Status: Former smoker Alcohol use: rarely Drug use: none - Family History Mother Living Status: Hx Family Respiratory Disorders: Yes (pneumonia) Father Living Status: Hx Family Respiratory Disorders: Yes (COPD) Hx Family Cancer: Yes (lung) Medications and Allergies Albuterol Sulfate [Albuterol Inhaler] 2 puff IH Q6HR PRN 11/23/18 [History] Aspirin [Lo-Dose Aspirin EC] 81 mg PO DAILY 11/23/18 [History] Budesonide/Formoterol 160/4.5 [Symbicort 160/4.5] 2 puff IH BIDR 11/23/18 [History] Buspirone HCl [Buspar] 7.5 mg PO DAILY@1500 11/23/18 [History] Cholecalciferol (Vitamin D3) [Vitamin D3] 1,000 unit PO QDPC 11/23/18 [History] Pregabalin [Lyrica] 75 mg PO QDPC 11/23/18 [History] Tamsulosin HCl [Flomax] 0.4 mg PO DAILY 11/23/18 [History] Venlafaxine HCl [Venlafaxine HCl ER] 37.5 mg PO QAM 11/23/18 [History] clonazePAM [Clonazepam] 1 mg PO BID 11/23/18 [History] Furosemide [Lasix] 20 mg PO Q48H 12/12/18 [History] Nitroglycerin [Nitrostat] 0.4 mg SL Q5M PRN 12/12/18 [History] Oxygen 1 each .ROUTE AD 12/12/18 [History] Albuterol Neb [Proventil Neb] 2.5 mg IH TID 12/13/18 [History] Pantoprazole Sodium [Protonix] 40 mg PO DAILY 12/13/18 [History] Folic Acid 1 mg PO DAILY 01/06/19 [History] HYDROcodone/Acet 5/325 mg [[place] 5-325 mg] 1 tab PO Q4HR PRN 3 Days #18 tablet 01/07/19 [Rx] Allergy/AdvReac Type Severity Reaction Status Date / Time phenytoin [From Dilantin] AdvReac See Verified 01/06/19 21:58 Comments All Systems Review: The remainder of the systems were reviewed and are negative - Cardiovascular Cardiovascular: as per HPI Physical Examination Vital Signs, Last 4 Hours Temp Pulse Resp BP Pulse Ox 01/08/19 07:40 98.6 F 99 20 112/74 95 01/08/19 07:00 97 95/60 97 General: Conversant, No Apparent Distress, Other (wearing O2 NC, sitting upright in chair) HEENT: Atraumatic, Normocephaly, Mucus Membranes Moist Neck: No JVD, Normal carotid pulses Cardiac: Reg Rate and Rhythm, Normal S1 and S2, No Murmur Lungs: Other (decreased BS throughout) Neuro: Alert and responsive, No focal deficits noted Abdomen: Soft, Non-Tender Skin: No rashes noted on visualized skin Musculoskeletal: No Chest Wall Tenderness Extremities: No Clubbing, Other (1+ b/l pitting edema; LE appear mildly cyanotic) Results 01/08/19 04:03 01/08/19 04:03 Lab Results 01/08/19 01/08/19 04:03 04:03 WBC 3.8 L Hgb 12.1 L Hct 40.1 Plt Count 37 L Sodium 135 L Potassium 4.0 Chloride 95 L Carbon Dioxide 35 H BUN 23 Creatinine 1.41 H Glucose 122 H Calcium 9.3 Magnesium 1.5 L Consult Discharge Plan - Plan Referrals: Román Alvarado MD [Primary Care Provider] -
[2019-01-08] MEDS: Budesonide/Formoterol 160/4.5 1 PUFF INH IH SCH ×2 (10:40→20:18)
[2019-01-08] MEDS: Ipratropium/Albuterol Neb 3 ML IH PRN (10:40)
[2019-01-08] MEDS: Isosorbide MONOnitrate (24 HR) 30 MG TAB.ER.24H PO SCH (11:18)
[2019-01-08] MEDS: Aspirin Enteric Coated 81 MG Tablet PO SCH (11:18)
[2019-01-08] MEDS ORDERED: Amiodarone Premix 150 MG/100 ML BAG IVPB ONE ×2 (12:44→12:52)
[2019-01-08] MEDS ORDERED: Amiodarone Premix 360 MG/200 ML BAG IVC ONE (12:52)
[2019-01-08] MEDS: Amiodarone Premix 360 MG/200 ML BAG IVC SCH (20:00)
[2019-01-08] MEDS: Metoprolol XL (24 HR) Succ 25 MG TAB.ER.24H PO SCH (20:54)
[2019-01-09 03:01] LABS: Hematocrit 40.4 % (37.5-50.1); Hemoglobin 12.3 g/dL (12.9-16.9); Mean Corpuscular HGB Conc 30.4 g/dL (31.6-35.5); Mean Corpuscular Hemoglobin 26.7 pg (28.0-33.3); Mean Corpuscular Volume 87.8 fL (83.0-100.0); Red Cell Distribution Width 21.3 % (11.5-14.5)
[2019-01-09 03:02] LABS: Platelet Count 55 K/mcL (140-400)
[2019-01-09 03:19] LABS: Calcium 9.6 mg/dL (8.6-10.3); Magnesium 2.1 mg/dL (1.6-2.6); Potassium 4.5 mEq/L (3.5-5.1)
[2019-01-09] MEDS: Budesonide/Formoterol 160/4.5 1 PUFF INH IH SCH ×2 (07:16→20:31)
[2019-01-09] MEDS: Amiodarone Premix 360 MG/200 ML BAG IVC SCH ×2 (08:45→08:51)
[2019-01-09] MEDS: Venlafaxine XR (24 HR) 37.5 MG CAP.ER.24H PO SCH (08:51)
[2019-01-09] MEDS: Pregabalin 75 MG CAPSULE PO SCH (08:51)
[2019-01-09] MEDS: clonazePAM 1 MG TABLET PO SCH ×2 (08:51→21:19)
[2019-01-09] MEDS: 0.9 % Sodium Chloride 1,000 ML IVC SCH (08:52)
[2019-01-09] MEDS: Metoprolol XL (24 HR) Succ 25 MG TAB.ER.24H PO SCH ×2 (08:52→21:19)
[2019-01-09] MEDS: Aspirin Enteric Coated 81 MG Tablet PO SCH (08:52)
[2019-01-09] MEDS: Cholecalciferol (D-3) 1,000 UNIT TABLET PO SCH (08:52)
[2019-01-09] MEDS: Folic Acid 1 MG TABLET PO SCH (08:52)
[2019-01-09] MEDS: Isosorbide MONOnitrate (24 HR) 30 MG TAB.ER.24H PO SCH (08:52)
[2019-01-09] MEDS: *HR* HYDROcodone/Acet 5/325 mg TABLET PO PRN ×3 (09:01→21:18)
--- NOTE | 2019-01-09 09:51 | Electrocardiograph Report ---
[address] [place], [place] [address] Test Date: 2019-01-08 Pat Name: Tyler Stevenson Department: 112 Room: 2N06 Gender: M Crozer: : 1950 Requested By: Tor Echeverria Order Number: [id number] Reading MD: Renate Nicole Measurements Intervals [place] Rate: 98 P: 51 MS: 159 QRS: 35 QRSD: 138 T: 51 QT: 373 QTc: 428 Interpretive Statements SINUS RHYTHM POSSIBLE LEFT ATRIAL ENLARGEMENT INTRAVENTRICULAR CONDUCTION DELAY POSSIBLE ANTERIOR MYOCARDIAL INFARCTION, OF INDETERMINATE AGE Electronically Signed On 01-09-2019 9:49:43 EDT by Renate Nicole
--- NOTE | 2019-01-09 10:12 | Internal Med Progress Note ---
Hospitalist Progress Note - Encounter Date of Encounter: 01/09/19 Time of Encounter: 07:30 - Subjective Interval History: Patient was transferred to due to refractory A. fib with RVR requiring amiodarone drip. Patient states that his breathing is more comfortable today, denies any chest pain or palpitation. - Exam Vitals: Temp Pulse Resp BP Pulse Ox 98.0 F 114 18 119/80 96 01/09/19 07:09 01/09/19 07:09 01/09/19 07:17 01/09/19 07:09 01/09/19 07:17 Exam: GEN: NAD CVS: Irregular rhythm, tachycardic RESP: Bibasilar Rales at the lung bases but improving aeration ABD: Soft, NT, ND, +BS EXT: 1+ b/l LE edema, No rashes, 2+ DP NEURO: Nonfocal, CN II-XII intact, No focal motor or sensory deficits - Assessment and Plan (1) Atrial flutter with rapid ventricular response Current Visit: Yes Status: Acute Assessment and Plan: Associated with borderline blood pressure hence was started on amiodarone drip after a bolus of 150 mg not a good candidate for anticoagulation (has IVC filter for PE) complete amiodarone gtt for 24 hours followed by 400mg BID continue bb, may consider uptitrating it if needed (2) Pulmonary embolus Current Visit: Yes Status: Acute Assessment and Plan: Had an IVC filter placed by Dr. Temple on 01/06. No DVT noted but Dr. Temple felt patient would benefit. Not a candidate for anticoags due to low platelets. Echo showed new EF of 25-30% for which he will need further workup; see below (3) Acute heart failure with reduced ejection fraction and diastolic dysfunction Current Visit: Yes Status: Acute Assessment and Plan: New EF of 25-30% and previous echo on 11/24 showed EF of 50%. hx of CAD s/p remote PCI ~ 20 years ago troponin 0.05-0.06-0.04, not consistent with ACS ASA resumed was diuresed with IV lasix yesterday and reports improvement in his symptoms. However, his Cr increased to 2 continue bb, hold lasix today consider add ingACE-i if his BP tolerates and Cr improves follow with cardiology (4) NSTEMI (non-ST elevated myocardial infarction) Current Visit: Yes Status: Acute Assessment and Plan: troponin and echo as above, follow with cardiology (5) Syncope Current Visit: Yes Status: Acute Assessment and Plan: Happened shortly after voiding at home. Possibly vasovagal but with findings of PE and new low EF, those could be causes as well. Carotid duplex negative. had an episode of afib with ventricular rate of 109, underlying arrhythmia could also play a role here. Refractory to bb and was started on amiodarone gtt as above follow with cardiology (6) CAD (coronary artery disease) Current Visit: Yes Status: Chronic Assessment and Plan: c/w home meds (7) Thrombocytopenia Current Visit: No Status: Chronic Assessment and Plan: chronic, likely due to cirrhosis Plt 55 today (8) COPD (chronic obstructive pulmonary disease) Current Visit: No Status: Chronic Assessment and Plan: not in exacerbation resume home inhalers (9) History of hepatitis C Current Visit: No Status: Acute Assessment and Plan: Treated previously DVT Prophylaxis: EPCD due to thrombocytopenia - Time Spent with Patient Total time spent is greater than 50% in coordination of care (as documented) at patient's floor/unit and/or counseling patient: Greater than 35 minutes Plan of Care Discussed with: patient (discussed with RN and pharmacist) Internal Medicine: Result - Labs CBC & Chem 7: 01/09/19 02:49 01/09/19 02:49 Labs: Short CBC 01/09/19 Range/Units 02:49 WBC 4.7 (4.3-11.1) K/mcL Hgb 12.3 L (12.9-16.9) g/dL Hct 40.4 (37.5-50.1) % Plt Count 55 L (140-400) K/mcL BMP 01/09/19 02:49 Sodium 134 L Potassium 4.5 Chloride 96 L Carbon Dioxide 35 H BUN 36 H Creatinine 2.08 H Glucose 146 H Calcium 9.6 - VTE Reasons for not Prescribing Prophylaxis: Medical contraindication Consult Discharge Plan - Plan Referrals: Román Alvarado MD [Primary Care Provider] - 01/17/19 10:50 am (2) Pulmonary embolus Qualifiers: Pulmonary embolism type: other Chronicity: acute Acute cor pulmonale presence: without acute cor pulmonale Qualified Code(s): I26.99 - Other pulmonary embolism without acute cor pulmonale (5) Syncope Qualifiers: Syncope type: unspecified Qualified Code(s): R55 - Syncope and collapse (6) CAD (coronary artery disease) Qualifiers: Coronary Disease-Associated Artery/Lesion type: [place] artery [place] vs. transplanted heart: [place] heart Associated angina: with other forms of angina Qualified Code(s): I25.118 - Atherosclerotic heart disease of [place] coronary artery with other forms of angina pectoris (8) COPD (chronic obstructive pulmonary disease) Qualifiers: COPD type: COPD with acute lower respiratory infection Qualified Code(s): J44.0 - Chronic obstructive pulmonary disease with acute lower respiratory infection
--- NOTE | 2019-01-09 13:34 | Cardiology Progress Note ---
Date of Encounter: 01/09/19 Time of Encounter: 10:00 Assessment and Plan (1) Cardiomyopathy Current Visit: Yes Status: Acute Per cardiology: -Newly reduced EF noted on echocardiogram this hospital stay. Previously 50%, now 25-30%. -Ideally, would consider cardiac catheterization to evaluate for obstructive CAD as etiology of cardiomyopathy. However, due to other comorbidities including acute PE, cirrhosis, as well as severe thrombocytopenia, SONU, cardiac catheterization contraindicated at this time. -Also concerned regarding cirrhosis and possible presence of esophageal varices. No evidence of GI bleeding at this time, GI evaluation in progress. -Was on IV lasix, now held due to SONU. Near euvolemic on exam. -Would treat medically, Continue toprol, imdur. Consider addition of tashi/arb if renal function improves and BP will tolerate. -Recommend addition of po lasix once renal function imrpoves. -STrict i/os, fluid restriction, daily weights. CHF education reviewed with patient. -Repeat TTE in 3 months for consideration for ICD placement. -Cardiology will sign off, re-consult if needed. Will arrange outpatient follow up. Qualifiers: Cardiomyopathy type: ischemic Qualified Code(s): I25.5 - Ischemic cardiomyopathy (2) Atrial flutter with rapid ventricular response Current Visit: Yes Status: Acute Per cardiology: -ADmitted with a.flutter RVR. BB was increased and amiodarone drip was started. -Patient is now back in SR, and HRs controlled. -[id number] score 3 (age, CAD, CHF). Not on anticoagulation due to cirrhosis, severe thrombocytopenia. Patient eduacted on risk of CVA/embolic event. -Discussed and reviewed with , would not recommend continuing amiodarone snf due to no anticoagulation and liver disease. -Continue BB. Can uptitrate BB as needed for rate control. (3) Elevated troponin Current Visit: Yes Status: Acute Per cardiology: -Suspect demand ischemia in setting of acute PE. No cardiac rehab consult warranted. (4) Acute on chronic systolic heart failure Current Visit: Yes Status: Acute Per cardiology: -Near euvolemic on exam. Discussion w patient/family: The assessment and plan as outlined above was discussed with the patient who expressed understanding and agreement. All questions were answered. Thank you for involving us in the care of your patient. Please call with any questions. Discussed and reviewed with . Subjective Principal diagnosis: A.flutter RVR Interval history: Patient states he feels well today. Denies chest pain. Reports some mild shortness of breath with exertion. Objective Vital Signs, Last 4 Hours Temp Pulse Resp BP Pulse Ox 01/09/19 12:37 18 90 01/09/19 11:08 97.8 F 99 18 105/66 93 General: Conversant, No Apparent Distress HEENT: Atraumatic, Normocephaly, Mucus Membranes Moist Neck: No JVD, Normal carotid pulses Cardiac: Reg Rate and Rhythm, Normal S1 and S2, No Murmur Lungs: Other (Expiratory wheezes noted throughout. ) Neuro: Alert and responsive, No focal deficits noted Abdomen: Soft, Non-Tender Skin: No rashes noted on visualized skin Musculoskeletal: No Chest Wall Tenderness Extremities: No Clubbing, No Cyanosis, Normal Pulses, Other (mild lower extremity edema noted, non-pitting. ) Results 01/09/19 02:49 01/09/19 02:49 Lab Results Active Medications Acetaminophen (Tylenol) 650 mg PO Q6HR PRN PRN Reason: Mild Pain/Fever Stop: 07/08/19 15:03 Last Admin: 01/06/19 21:50 Dose: 650 mg Documented by: Hydrocodone Bitart/Acetaminophen ([place] 5-325 Mg) 1 tab PO Q4HR PRN PRN Reason: Moderate Pain Stop: 07/09/19 09:44 Last Admin: 01/09/19 09:01 Dose: 1 tab Documented by: Albuterol Sulfate (Albuterol Inhaler) 2 puff IH Q6HR PRN PRN Reason: SOB/WHEEZING Stop: 07/09/19 13:43 Last Admin: 01/09/19 12:36 Dose: 2 puff Documented by: Albuterol/Ipratropium (Duoneb) 3 ml IH [id number] PRN PRN Reason: Shortness Of Breath/Wheezing Stop: 07/09/19 13:45 Last Admin: 01/08/19 10:40 Dose: 3 ml Documented by: Aspirin (Aspirin Ec) 81 mg PO DAILY RADHA Stop: 07/10/19 10:16 Last Admin: 01/09/19 08:52 Dose: 81 mg Documented by: Budesonide/Formoterol Fumarate (Symbicort) 2 puff IH BIDR [facility]; Protocol Stop: 07/09/19 22:01 Last Admin: 01/09/19 07:16 Dose: 2 puff Documented by: Buspirone HCl (Buspar) 7.5 mg PO DAILY@1500 [facility] Stop: 07/09/19 15:01 Last Admin: 01/08/19 14:10 Dose: 7.5 mg Documented by: Calcium Carbonate (Tums) 1,000 mg PO QID [facility]; Protocol Stop: 07/08/19 17:01 Last Admin: 01/09/19 12:23 Dose: Not Given Documented by: Clonazepam (Klonopin) 1 mg PO BID [facility] Stop: 07/09/19 21:01 Last Admin: 01/09/19 08:51 Dose: 1 mg Documented by: Folic Acid (Folic Acid) 1 mg PO DAILY [facility] Stop: 07/10/19 09:01 Last Admin: 01/09/19 08:52 Dose: 1 mg Documented by: Sodium Chloride (0.9 % Sodium Chloride) 1,000 mls @ 60 mls/hr IVC .[id number] [facility] Stop: 07/11/19 07:46 Last Admin: 01/09/19 08:52 Dose: 60 mls/hr Documented by: Isosorbide Mononitrate (Imdur) 30 mg PO DAILY [facility] Stop: 07/10/19 10:31 Last Admin: 01/09/19 08:52 Dose: 30 mg Documented by: Magnesium Hydroxide (Milk Of Magnesia Conc) 10 ml PO DAILY PRN PRN Reason: Constipation Stop: 07/08/19 15:03 Metoprolol Succinate (Toprol Xl) 25 mg PO BID [facility] Stop: 07/10/19 21:01 Last Admin: 01/09/19 08:52 Dose: 25 mg Documented by: Naloxone HCl (Narcan) 0.4 mg IVP Q2MPRN PRN PRN Reason: SEE COMMENTS Stop: 07/08/19 15:03 Nitroglycerin (Nitroglycerin) 0.4 mg SL Q5MPRN PRN PRN Reason: Chest Pain Stop: 07/08/19 15:04 Last Admin: 01/08/19 06:47 Dose: 0.4 mg Documented by: Omeprazole (Prilosec) 20 mg PO DAILY [facility] Stop: 07/10/19 09:01 Last Admin: 01/09/19 08:52 Dose: 20 mg Documented by: Ondansetron HCl (Zofran) 4 mg IVP Q8HR PRN PRN Reason: Nausea And Vomiting Stop: 07/08/19 15:03 Last Admin: 01/08/19 15:34 Dose: 4 mg Documented by: Pregabalin (Lyrica) 75 mg PO QDPC [facility] Stop: 07/10/19 09:01 Last Admin: 01/09/19 08:51 Dose: 75 mg Documented by: Tamsulosin HCl (Flomax) 0.4 mg PO DAILY [facility]; Protocol Stop: 07/10/19 09:01 Last Admin: 01/09/19 08:52 Dose: 0.4 mg Documented by: Venlafaxine HCl (Effexor Xr) 37.5 mg PO [facility] Stop: 07/10/19 09:01 Last Admin: 01/09/19 08:51 Dose: 37.5 mg Documented by: Vitamin D (Vitamin D) 1,000 [facility] Stop: 07/10/19 09:01 Last Admin: 01/09/19 08:52 Dose: 1,000 unit Documented by: Laboratory Tests 01/06/19 01/06/19 01/07/19 15:22 20:49 05:12 Hgb Plt Count Creatinine Troponin I 0.05 H* 0.06 H* 0.04 H* 01/07/19 01/07/19 01/09/19 05:12 05:12 02:49 Hgb 12.3 L Plt Count 28 L* 55 L Creatinine 1.27 Troponin I 01/09/19 02:49 Hgb Plt Count Creatinine 2.08 H Troponin I - Imaging and Cardiology Chest Xray: report reviewed Echo: report reviewed - EKG Interpretation EKG results cardiology: other (Telemetry reviewed with average HR previous 12 hours noted to be 96, SR.) - VTE Reasons for not Prescribing Prophylaxis: Medical contraindication Consult Discharge Plan - Plan Referrals: Roxanne Boggs MD [Partnered Physician] - (Per the office they will call the patient at home with a follow up appointment) Román Alvarado MD [Primary Care Provider] - 01/17/19 10:50 am
[2019-01-09] MEDS ORDERED: *HR* Amiodarone 200 MG TABLET PO SCH (21:00)
[2019-01-10] MEDS: 0.9 % Sodium Chloride 1,000 ML IVC SCH (01:40)
[2019-01-10] MEDS: Budesonide/Formoterol 160/4.5 1 PUFF INH IH SCH ×2 (07:34→20:02)
[2019-01-10 07:45] LABS: Basophils % 0.3 %; Eosinophils % 1.4 %; Hematocrit 40.7 % (37.5-50.1); Hemoglobin 12.1 g/dL (12.9-16.9); Immature Granulocytes % 0.7 % (0-4); Immature Platelets 12.4 % (1.1-6.1); Lymphocytes # 0.4 K/mcL (0.6-4.6); Lymphocytes % 12.4 %; Mean Corpuscular HGB Conc 29.7 g/dL (31.6-35.5); Mean Corpuscular Hemoglobin 26.9 pg (28.0-33.3); Mean Corpuscular Volume 90.4 fL (83.0-100.0); Monocytes # 0.4 K/mcL (0.0-1.3); Monocytes % 13.1 %; Neutrophils # 2.1 K/mcL (1.6-8.9); Red Cell Distribution Width 20.8 % (11.5-14.5); Segmented Neutrophils % 72.1 %
[2019-01-10 08:11] LABS: Platelet Count 58 K/mcL (140-400)
[2019-01-10] MEDS: Cholecalciferol (D-3) 1,000 UNIT TABLET PO SCH (08:34)
[2019-01-10] MEDS: Aspirin Enteric Coated 81 MG Tablet PO SCH (08:35)
[2019-01-10] MEDS: Metoprolol XL (24 HR) Succ 25 MG TAB.ER.24H PO SCH ×2 (08:35→20:49)
[2019-01-10] MEDS: Pregabalin 75 MG CAPSULE PO SCH (08:35)
[2019-01-10] MEDS: Venlafaxine XR (24 HR) 37.5 MG CAP.ER.24H PO SCH (08:35)
[2019-01-10] MEDS: clonazePAM 1 MG TABLET PO SCH ×2 (08:35→20:45)
[2019-01-10] MEDS: Folic Acid 1 MG TABLET PO SCH (08:35)
[2019-01-10] MEDS: Isosorbide MONOnitrate (24 HR) 30 MG TAB.ER.24H PO SCH (08:35)
[2019-01-10] MEDS: *HR* HYDROcodone/Acet 5/325 mg TABLET PO PRN ×3 (08:39→20:49)
[2019-01-10 08:40] LABS: Calcium 9.6 mg/dL (8.6-10.3); Magnesium 1.9 mg/dL (1.6-2.6); Potassium 4.8 mEq/L (3.5-5.1)
--- NOTE | 2019-01-10 15:41 | Internal Med Progress Note ---
Hospitalist Progress Note - Encounter Date of Encounter: 01/10/19 Time of Encounter: 15:38 - Subjective Interval History: Acute event overnight. Still have dyspnea on exertion. Review the lab but trending down white count but better platelet count. Denies fever chills nausea vomiting headache dizziness chest pain abdominal pain diarrhea urinary complaint. - Exam Vitals: Temp Pulse Resp BP Pulse Ox 97.9 F 84 18 102/69 95 01/10/19 12:12 01/10/19 12:12 01/10/19 12:12 01/10/19 12:12 01/10/19 14:21 Exam: General appearance: No acute distress Eye exam: EOMI, PERRLA ENT exam: Moist oral mucosa Neck nontender, supple Respiratory exam: Decreased breath sound bilaterally Cardiovascular exam: Regular rate and rhythm, no systolic murmur Abdominal exam: Soft, nontender, nondistended, positive bowel sounds Extremities exam: No calf tenderness, +1 pedal edema Present: Skin-no rash, warm, dry, intact Neurological exam: Alert, awake, oriented 3, CN II-XII intact, no focal deficits. - Assessment and Plan (1) Leucopenia Current Visit: Yes Status: Acute Assessment and Plan: New onset. No fever. Could be due to liver cirrhosis or sign of early sepsis. Denies cough urinary complaint but Persistent shortness of breath therefore will repeat chest x-ray as patient also had pleural effusion in previous chest x-ray just to rule out underlying lung etiology. Monitor CBC. (2) CAD (coronary artery disease) Current Visit: Yes Status: Chronic Assessment and Plan: c/w home meds (3) Thrombocytopenia Current Visit: No Status: Chronic Assessment and Plan: chronic, likely due to cirrhosis. Trending up. No active bleeding (4) COPD (chronic obstructive pulmonary disease) Current Visit: No Status: Chronic Assessment and Plan: not in exacerbation resume home inhalers (5) History of hepatitis C Current Visit: No Status: Acute Assessment and Plan: Treated previously (6) Syncope Current Visit: Yes Status: Acute Assessment and Plan: Happened shortly after voiding at home. Possibly vasovagal /cardiac etiology could be also concern as patient has new low EF, A. fib with RVR refractory to beta estefani therefore restarted amiodarone initially Cardiology consulted and is started on amiodarone with the concern of underlying liver problem and is started on beta estefani. Carotid duplex negative. (7) Pulmonary embolus Current Visit: Yes Status: Acute Assessment and Plan: Had an IVC filter placed by Dr. Temple on 01/06. No DVT noted but Dr. Temple fel t patient would benefit. Not a candidate for anticoags due to low platelets. (8) NSTEMI (non-ST elevated myocardial infarction) Current Visit: Yes Status: Acute Assessment and Plan: troponin and echo as above, follow with cardiology-recommended to treat medically continue Toprol him do consider addition of tashi /arb if renal function improves and BP will tolerate along with the addition of by mouth Lasix once renal function improves. Repeat TTE in 3 months for consideration for ICD placement. Heart catheterization was not consider due to multiple other cardiac comorbidities such as acute PE, cirrhosis and concern for a symphyseal will reassess, severe thrombocytopenia, SONU. Cardiology signed off but will follow patient at [facility] cardiology outpatient in [place]. (9) Acute heart failure with reduced ejection fraction and diastolic dysfunction Current Visit: Yes Status: Acute Assessment and Plan: New EF of 25-30% and previous echo on 11/24 showed EF of 50%. hx of CAD s/p remote PCI ~ 20 years ago troponin 0.05-0.06-0.04, not consistent with ACS ASA resumed was diuresed with IV lasix for elevated creatinine started to get worse therefore Lasix was on hold. Today creatinine level slight better but is still low normal blood pressure therefore will hold Lasix today and reassess patient tomorrow. Continue beta estefani. consider add ingACE low-dose nd low dose- if his BP tolerates and Cr improves (10) Atrial flutter with rapid ventricular response Current Visit: Yes Status: Acute Assessment and Plan: Associated with borderline blood pressure hence was started on amiodarone drip after a bolus of 150 mg not a good candidate for anticoagulation (has IVC filter for PE) stopped amio continue bb, may consider uptitrating it if needed - Time Spent with Patient Total time spent is greater than 50% in coordination of care (as documented) at patient's floor/unit and/or counseling patient: Internal Medicine: Result - Labs CBC & Chem 7: 01/10/19 07:05 01/10/19 07:05 Labs: Short CBC 01/10/19 Range/Units 07:05 WBC 2.9 L (4.3-11.1) K/mcL Hgb 12.1 L (12.9-16.9) g/dL Hct 40.7 (37.5-50.1) % Plt Count 58 L (140-400) K/mcL Neutrophils # 2.1 (1.6-8.9) K/mcL BMP 01/10/19 07:05 Sodium 136 Potassium 4.8 Chloride 100 Carbon Dioxide 32 H BUN 43 H Creatinine 1.83 H Glucose 138 H Calcium 9.6 - Impressions Impressions Chest X-Ray 01/10/19 11:17 IMPRESSION: There is cardiomegaly with increased interstitial changes seen diffusely when compared to the previous study in November of 2018, which may be related to superimposed pulmonary edema. Small bilateral pleural effusions are seen at the costophrenic angles along the lateral chest wall, though better noted on recent CT imaging. D/ / Ivan Soto MD / Ivan Soto MD Interpreting Provider: Ivan Soto MD - VTE Reasons for not Prescribing Prophylaxis: Medical contraindication Consult Discharge Plan - Plan Referrals: Roxanne Boggs MD [Partnered Physician] - (Per the office they will call the patient at home with a follow up appointment) Román Alvarado MD [Primary Care Provider] - 01/17/19 10:50 am ___ (1) Leucopenia Qualifiers: Neutropenia type: unspecified (2) CAD (coronary artery disease) Qualifiers: Coronary Disease-Associated Artery/Lesion type: [place] artery [place] vs. transplanted heart: [place] heart Associated angina: with other forms of angina Qualified Code(s): I25.118 - Atherosclerotic heart disease of [place] coronary artery with other forms of angina pectoris (4) COPD (chronic obstructive pulmonary disease) Qualifiers: COPD type: COPD with acute lower respiratory infection Qualified Code(s): J44.0 - Chronic obstructive pulmonary disease with acute lower respiratory infe ction (6) Syncope Qualifiers: Syncope type: unspecified Qualified Code(s): R55 - Syncope and collapse (7) Pulmonary embolus Qualifiers: Pulmonary embolism type: other Chronicity: acute Acute cor pulmonale presence: without acute cor pulmonale Qualified Code(s): I26.99 - Other pulmonary embolism without acute cor pulmonale
[2019-01-10 22:02] LABS: Bilirubin,Urine Negative (Negative); Blood,Urine Negative (Negative); Clarity,Urine Clear (Clear); Color,Urine Yellow (Yellow); Glucose,Urine (UA) Normal (Normal); Ketones,Urine Negative (Negative); Leukocyte Esterase,Urine Negative (Negative); Nitrite,Urine Negative (Negative); Protein,Urine Negative (Neg-Trace); Specific Gravity,Urine 1.013 (1.010-1.025); Urobilinogen,Urine Normal (Normal)
[2019-01-11] MEDS ORDERED: Nitroglycerin 0.4 MG TAB.SUBL SL PRN (07:18)
[2019-01-11] MEDS: Budesonide/Formoterol 160/4.5 1 PUFF INH IH SCH ×2 (07:39→20:10)
[2019-01-11] MEDS: Metoprolol XL (24 HR) Succ 25 MG TAB.ER.24H PO SCH ×2 (08:00→20:50)
[2019-01-11] MEDS: Pregabalin 75 MG CAPSULE PO SCH (08:00)
[2019-01-11] MEDS: Venlafaxine XR (24 HR) 37.5 MG CAP.ER.24H PO SCH (08:00)
[2019-01-11] MEDS: clonazePAM 1 MG TABLET PO SCH ×2 (08:00→20:50)
[2019-01-11] MEDS: Isosorbide MONOnitrate (24 HR) 30 MG TAB.ER.24H PO SCH (08:00)
[2019-01-11] MEDS: Folic Acid 1 MG TABLET PO SCH (08:00)
[2019-01-11] MEDS: Aspirin Enteric Coated 81 MG Tablet PO SCH (08:00)
[2019-01-11] MEDS: Cholecalciferol (D-3) 1,000 UNIT TABLET PO SCH (08:00)
[2019-01-11] MEDS: *HR* HYDROcodone/Acet 5/325 mg TABLET PO PRN ×2 (08:05→17:53)
[2019-01-11 10:25] LABS: Basophils % 0.3 %; Immature Granulocytes % 0.3 % (0-4)
[2019-01-11 10:27] LABS: Eosinophils # 0.1 K/mcL (0.0-0.6); Eosinophils % 1.6 %; Hematocrit 40.3 % (37.5-50.1); Hemoglobin 11.7 g/dL (12.9-16.9); Immature Platelets 11.3 % (1.1-6.1); Lymphocytes # 0.4 K/mcL (0.6-4.6); Lymphocytes % 11.1 %; Mean Corpuscular Hemoglobin 26.6 pg (28.0-33.3); Mean Corpuscular Volume 91.6 fL (83.0-100.0); Mean Platelet Volume 11.6 fL (9.4-12.4); Monocytes # 0.4 K/mcL (0.0-1.3); Monocytes % 12.7 %; Red Cell Distribution Width 20.6 % (11.5-14.5)
[2019-01-11 10:29] LABS: Calcium 10.7 mg/dL (8.6-10.3); Potassium 4.7 mEq/L (3.5-5.1)
[2019-01-11 10:39] LABS: Neutrophils # 2.4 K/mcL (1.6-8.9); Platelet Count 79 K/mcL (140-400)
[2019-01-11 10:40] LABS: INR 1.1; Prothrombin Time 12.4 Seconds (9.4-12.1)
[2019-01-11] MEDS ORDERED: Furosemide 20 MG/2 ML VIAL IVP ONE (11:54)
[2019-01-11 12:26] LABS: Anisocytosis 1+ (Not Present); Platelet Estimate Slight Decrease (Normal)
--- NOTE | 2019-01-11 13:10 | Internal Med Progress Note ---
Hospitalist Progress Note - Encounter Date of Encounter: 01/11/19 Time of Encounter: 13:04 - Subjective Interval History: Patient is still complaining of dyspnea on exertion though slight better since admission. His oxygen dropped to higher 70s overnight therefore oxygen mask 7 L started. Review the lab with better white count and trending down creatinine Still complaining of shortness of breath on exertion, fatigue. Denies fever chills nausea vomiting headache dizziness chest pain abdominal pain diarrhea - Exam Vitals: Temp Pulse Resp BP Pulse Ox 97.7 F 96 18 118/78 99 01/11/19 11:25 01/11/19 11:25 01/11/19 11:25 01/11/19 11:25 01/11/19 11:25 Exam: General appearance: No acute distress, o2 via NC Eye exam: EOMI, PERRLA ENT exam: Moist oral mucosa Neck nontender, supple Respiratory exam: Decreased breath sound bilaterally with few crepts Cardiovascular exam: Regular rate and rhythm, no systolic murmur Abdominal exam: Soft, nontender, nondistended, positive bowel sounds Extremities exam: No calf tenderness, +1/2 pedal edema Present: Skin-no rash, warm, dry, intact Neurological exam: Alert, awake, oriented 3, CN II-XII intact, no focal deficits. - Assessment and Plan (1) Hypoxia Current Visit: Yes Status: Acute Assessment and Plan: Oxygen saturation dropped in high 70s overnight for almost 5 minute therefore oxygen mask was 7 L oxygen is started. ABG with raised PCO2 therefore BiPAP qualification test ordered. Patient will also need sleep study on outpatient basis Slight worsening chest x-ray due to vascular congestion with few Lung with Pedal Edema Therefore IV Lasix 20 Mg Given Today. Gentle Hydration As Patient Blood Pressure Once Low Normal. Will Plan to Discharge Patient on Lasix 20 Mg Daily with Outpatient Close Monitoring with PCP As Tolerated. Plan for discharge patient tomorrow if continued to improve (2) Leucopenia Current Visit: Yes Status: Acute Assessment and Plan: Better. New onset. No fever. Could be due to liver cirrhosis or sign of early sepsis. Denies cough urinary complaint but Persistent shortness of breath urinalysis with no acute finding. Repeat chest x-ray worsening of vascular congestion suggestive of pulmonary edema but no infiltrate. (3) CAD (coronary artery disease) Current Visit: Yes Status: Chronic Assessment and Plan: c/w home meds (4) Thrombocytopenia Current Visit: No Status: Chronic Assessment and Plan: chronic, likely due to cirrhosis. Trending up. No active bleeding (5) COPD (chronic obstructive pulmonary disease) Current Visit: No Status: Chronic Assessment and Plan: not in exacerbation resume home inhalers (6) History of hepatitis C Current Visit: No Status: Acute Assessment and Plan: Treated previously (7) Syncope Current Visit: Yes Status: Acute Assessment and Plan: Happened shortly after voiding at home. Possibly vasovagal /cardiac etiology could be also concern as patient has new low EF, A. fib with RVR refractory to beta estefani therefore restarted amiodarone initially Cardiology consulted and stopped amiodarone with the concern of underlying liver problem and is started on beta estefani. Carotid duplex negative. (8) Pulmonary embolus Current Visit: Yes Status: Acute Assessment and Plan: Had an IVC filter placed by Dr. Temple on 01/06. No DVT noted but Dr. Temple felt patient would benefit. Not a candidate for anticoags due to low platelets. (9) NSTEMI (non-ST elevated myocardial infarction) Current Visit: Yes Status: Acute Assessment and Plan: troponin and echo as above, follow with cardiology-recommended to treat medically continue Toprol him do consider addition of tashi /arb if renal function improves and BP will tolerate along with the addition of by mouth Lasix once renal function improves. Repeat TTE in 3 months for consideration for ICD placement. Heart catheterization was not consider due to multiple other cardiac comorbidities such as acute PE, cirrhosis and concern for a symphyseal will reassess, severe thrombocytopenia, SONU. Cardiology signed off but will follow patient at [facility]ology outpatient in [place]. (10) Acute heart failure with reduced ejection fraction and diastolic dysfunction Current Visit: Yes Status: Acute Assessment and Plan: New EF of 25-30% and previous echo on 11/24 showed EF of 50%. hx of CAD s/p remote PCI ~ 20 years ago troponin 0.05-0.06-0.04, not consistent with ACS ASA resumed was diuresed with IV lasix for elevated creatinine started to get worse therefore Lasix was on hold. Continue beta estefani. consider add ingACE low-dose nd low dose- if his BP tolerates and Cr improves Today creatinine level slight better Lasix 20 mg IV given as worsening of vascular congestion and chest x-ray. (11) Atrial flutter with rapid ventricular response Current Visit: Yes Status: Acute Assessment and Plan: Associated with borderline blood pressure hence was started on amiodarone drip after a bolus of 150 mg not a good candidate for anticoagulation (has IVC filter for PE) stopped amio continue bb, may consider uptitrating it if needed - Time Spent with Patient Total time spent is greater than 50% in coordination of care (as documented) at patient's floor/unit and/or counseling patient: 25 - 35 minutes Plan of Care Discussed with: patient Internal Medicine: Result - Labs CBC & Chem 7: 01/11/19 09:36 01/11/19 09:36 Labs: Short CBC 01/11/19 Range/Units 09:36 WBC 3.2 L (4.3-11.1) K/mcL Hgb 11.7 L (12.9-16.9) g/dL Hct 40.3 (37.5-50.1) % Plt Count 79 L (140-400) K/mcL Neutrophils # 2.4 (1.6-8.9) K/mcL BMP 01/11/19 09:36 Sodium 138 Potassium 4.7 Chloride 98 Carbon Dioxide 36 H BUN 48 H Creatinine 1.78 H Glucose 131 H Calcium 10.7 H Urine 01/10/19 Range/Units 11:55 Urine Color Yellow (Yellow) Urine Clarity Clear (Clear) Urine pH 6.0 (5.0-8.0) pH Units Ur Specific [place] 1.013 (1.010-1.025) Urine Protein Negative (Neg-Trace) mg/dL Urine Glucose (UA) Normal (Normal) mg/dL - ABG Interpretation ABG results: PT/INR, D-dimer PT 12.4 Seconds (9.4-12.1) H 01/11/19 09:36 - Impressions Impressions Chest X-Ray 01/10/19 11:17 IMPRESSION: There is cardiomegaly with increased interstitial changes seen diffusely when compared to the previous study in November of 2018, which may be related to superimposed pulmonary edema. Small bilateral pleural effusions are seen at the costophrenic angles along the lateral chest wall, though better noted on recent CT imaging. D/ / Ivan Soto MD / Ivan Soto MD Interpreting Provider: Ivan Soto MD - VTE Reasons for not Prescribing Prophylaxis: Medical contraindication Consult Discharge Plan - Plan Referrals: Roxanne Boggs MD [Partnered Physician] - (Per the office they will call the patient at home with a follow up appointment) Román Alvarado MD [Primary Care Provider] - 01/17/19 10:50 am (2) Leucopenia Qualifiers: Neutropenia type: unspecified (3) CAD (coronary artery disease) Qualifiers: Coronary Disease-Associated Artery/Lesion type: [place] artery [place] vs. transplanted heart: [place] heart Associated angina: with other forms of angina Qualified Code(s): I25.118 - Atherosclerotic heart disease of [place] coronary artery with other forms of angina pectoris (5) COPD (chronic obstructive pulmonary disease) Qualifiers: COPD type: COPD with acute lower respiratory infection Qualified Code(s): J44.0 - Chronic obstructive pulmonary disease with acute lower respiratory infection (7) Syncope Qualifiers: Syncope type: unspecified Qualified Code(s): R55 - Syncope and collapse (8) Pulmonary embolus Qualifiers: Pulmonary embolism type: other Chronicity: acute Acute cor pulmonale presence: without acute cor pulmonale Qualified Code(s): I26.99 - Other pulmonary embolism without acute cor pulmonale
[2019-01-11 15:55] LABS: ABG Base Excess 9 mEq/L (-2 to 3); ABG HCO3 37 mEq/L (21-27); ABG Oxygen Saturation 89 % (95-98); ABG PCO2 74 mmHg (35-45); ABG PH 7.31 pH Units (7.32-7.45); ABG PO2 64 mmHg (85-104); ABG TCO2 39 mEq/L (20-26)
[2019-01-12 07:28] LABS: Hematocrit 38.3 % (37.5-50.1); Hemoglobin 11.3 g/dL (12.9-16.9); Mean Corpuscular HGB Conc 29.5 g/dL (31.6-35.5); Mean Corpuscular Hemoglobin 26.7 pg (28.0-33.3); Mean Corpuscular Volume 90.5 fL (83.0-100.0); Mean Platelet Volume 10.7 fL (9.4-12.4); Monocytes # 0.5 K/mcL (0.0-1.3); Red Blood Count 4.23 M/mcL (4.19-5.50); Red Cell Distribution Width 20.5 % (11.5-14.5)
[2019-01-12 07:29] LABS: Platelet Count 71 K/mcL (140-400)
[2019-01-12] MEDS: Budesonide/Formoterol 160/4.5 1 PUFF INH IH SCH (07:44)
[2019-01-12 08:14] LABS: Eosinophils # 0.2 K/mcL (0.0-0.6); Lymphocytes # 0.8 K/mcL (0.6-4.6); Neutrophils # 1.5 K/mcL (1.6-8.9)
[2019-01-12 08:15] LABS: Large Platelets Present (Not Present); Platelet Estimate Decreased (Normal)
[2019-01-12 08:29] LABS: Calcium 10.3 mg/dL (8.6-10.3); Potassium 4.6 mEq/L (3.5-5.1)
[2019-01-12] MEDS ORDERED: Albuterol 2.5 MG/3 ML NEBULIZER IH PRN (08:39)
[2019-01-12] MEDS: Pregabalin 75 MG CAPSULE PO SCH (09:46)
[2019-01-12] MEDS: Folic Acid 1 MG TABLET PO SCH (09:46)
[2019-01-12] MEDS: Aspirin Enteric Coated 81 MG Tablet PO SCH (09:46)
[2019-01-12] MEDS: clonazePAM 1 MG TABLET PO SCH (09:46)
[2019-01-12] MEDS: Isosorbide MONOnitrate (24 HR) 30 MG TAB.ER.24H PO SCH (09:46)
[2019-01-12] MEDS: Venlafaxine XR (24 HR) 37.5 MG CAP.ER.24H PO SCH (09:46)
[2019-01-12] MEDS: Metoprolol XL (24 HR) Succ 25 MG TAB.ER.24H PO SCH (09:46)
[2019-01-12] MEDS: Cholecalciferol (D-3) 1,000 UNIT TABLET PO SCH (09:46)
[2019-01-12 10:45] VITALS: BP 117/72
[2019-01-12] MEDS: *HR* HYDROcodone/Acet 5/325 mg TABLET PO PRN (10:54)
--- NOTE | 2019-01-12 11:13 | Discharge Summary ---
- NOTES TO OUTPATIENT PROVIDER Notes to Outpatient Provider: Follow with cardiology within 1 week. Follow-up with PCP in 2-3 days-was blood pressure, creatinine level, platelet, Lasix titration, addition of tashi/arb when possible. CBC and BMP monitor. Continue BiPAP and home oxygen and as recommended. Titrate Lasix as tolerated with the help of PCP while monitoring creatinine level and blood pressure. TTE in 3 months for consideration ICD Orders not resulted at time of discharge: Pending orders 01/13/19 04:00 BMP [Basic Metabolic Panel] AM 0400 Complete Blood Count [HEME] AM 0400 01/14/19 04:00 BMP [Basic Metabolic Panel] AM 0400 Complete Blood Count [HEME] AM 0400 Date of Encounter: 01/12/19 Time of Encounter: 11:04 - Discharge Diagnosis (1) Hypoxia Priority: Primary Status: Acute Assessment and Plan: Oxygen saturation dropped in high 70s overnight for almost 5 minute therefore oxygen mask was 7 L oxygen is started. ABG with raised PCO2 therefore BiPAP qualification test ordered and patient qualified for BiPAP. 6. Walk test was also done and he qualified for 3 L oxygen at rest and 5 L on ambulation. Plan to discharge patient today . Better lung sounds with slight decrease in pedal edema after giving 1 dose of IV Lasix. Will Plan to Discharge Patient on Lasix 20 Mg Daily with Outpatient Close Monitoring with PCP As Tolerated and mentioned in follow-up note (2) Leucopenia Priority: Primary Status: Acute Assessment and Plan: Chronic fluctuating, most likely due to underlying liver cirrhosis. Patient does not appear in sepsis. No fever cough chest pain abdominal pain diarrhea urinary complaint. Needs to get monitored outpatient with the help of PCP. Qualifiers: Leukopenia type: unspecified Qualified Code(s): D72.819 - Decreased white blood cell count, unspecified (3) CAD (coronary artery disease) Priority: Secondary Status: Chronic Assessment and Plan: Stable Qualifiers: Coronary Disease-Associated Artery/Lesion type: [place] artery [place] vs. transplanted heart: [place] heart Associated angina: with other forms of angina Qualified Code(s): I25.118 - Atherosclerotic heart disease of [place] coronary artery with other forms of angina pectoris (4) Thrombocytopenia Priority: Primary Status: Chronic Assessment and Plan: chronic, likely due to cirrhosis. Trending up. No active bleeding. Needs monitoring outpatient (5) COPD (chronic obstructive pulmonary disease) Priority: Secondary Status: Chronic Assessment and Plan: not in exacerbation resume home inhalers Qualifiers: COPD type: COPD with acute lower respiratory infection Qualified Code(s): J44.0 - Chronic obstructive pulmonary disease with acute lower respiratory infection (6) History of hepatitis C Priority: Secondary Status: Acute Assessment and Plan: Treated previously (7) Syncope Priority: Primary Status: Acute Assessment and Plan: Happened shortly after voiding at home. Possibly vasovagal /cardiac etiology co uld be also concern as patient has new low EF, A. fib with RVR refractory to beta estefani therefore restarted amiodarone initially Cardiology consulted and stopped amiodarone with the concern of underlying liver problem and is started on beta estefani. Carotid duplex negative. No further event of syncope. Qualifiers: Syncope type: unspecified Qualified Code(s): R55 - Syncope and collapse (8) Pulmonary embolus Priority: Primary Status: Acute Assessment and Plan: Had an IVC filter placed by Dr. Temple on 01/06. No DVT noted but Dr. Temple felt patient would benefit. Not a candidate for anticoags due to low platelets. Qualifiers: Pulmonary embolism type: other Chronicity: acute Acute cor pulmonale presence: without acute cor pulmonale Qualified Code(s): I26.99 - Other pulmonary embolism without acute cor pulmonale (9) NSTEMI (non-ST elevated myocardial infarction) Priority: Primary Status: Acute Assessment and Plan: Newly reduced EF noted on echocardiogram this hospital stay. Previously 50%, now 25-30%. follow with cardiology-recommended to treat medically continue Toprol him do consider addition of tashi /arb if renal function improves and BP will tolerate along with the addition of by mouth Lasix once renal function improves. Repeat TTE in 3 months for consideration for ICD placement. Ideally, would consider cardiac catheterization to evaluate for obstructive CAD as etiology of cardiomyopathy. Heart catheterization was not consider due to multiple other cardiac comorbidities such as acute PE, cirrhosis , severe thrombocytopenia, SONU. Cardiology signed off but will follow patient at [facility] outpatient in [place]. (10) Acute heart failure with reduced ejection fraction and diastolic dysfunction Priority: Primary Status: Acute Assessment and Plan: New EF of 25-30% and previous echo on 11/24 showed EF of 50%. hx of CAD s/p remote PCI ~ 20 years ago troponin 0.05-0.06-0.04, not consistent with ACS ASA resumed was diuresed with IV lasix for elevated creatinine started to get worse therefore Lasix was on hold but resumed again.. Continue beta estefani. consider add ingACE low-dose nd low dose- if his BP tolerates and Cr improves (11) Atrial flutter with rapid ventricular response Priority: Primary Status: Acute Assessment and Plan: Associated with borderline blood pressure hence was started on amiodarone drip after a bolus of 150 mg not a good candidate for anticoagulation (has IVC filter for PE) stopped amio as patient is not on long-term anticoagulation and also liver cirrhosis continue bb, may consider uptitrating it if needed on OPD basis Hospital course: Mr. Stevenson is a 68 year old male patient got admitted for multiple cardiac problem as mentioned in diagnosis section of discharge summary. Patient has several limitation to maximize medical treatment as mentioned in the chart. He is in baseline shortness of breath is status and requiring oxygen by nasal cannula during daytime and qualified for BiPAP in the night. Patient needs to have close follow-up with PCP and cardiology to monitor lab, adjusting medication and further cardiac evaluation as mentioned in follow-up section. Patient was advised to take Lasix 20 mg by mouth daily while monitoring daily weight, pedal Edema shortness of breath and blood pressure if any concern of low blood pressure then hold Lasix and call PCP office. At home patient was on Lasix 20 mg every other day. Now creatinine level improving and blood pressure also better. At the time of discharge patient is hemodynamically stable, baseline shortness of breath requiring oxygen supplementation able to tolerate diet and wants to go home. Discharge discussed with: patient, nurse, residential solar consultant - Time Spent with Patient Total time spent providing and/or coordinating discharge services: Time spent: Less than 30 minutes - Discharge Medications Prescriptions: Continued Pregabalin [Lyrica] 75 mg PO QDPC clonazePAM [Clonazepam] 1 mg PO BID Buspirone HCl [Buspar] 7.5 mg PO DAILY@1500 Aspirin [Lo-Dose Aspirin EC] 81 mg PO DAILY Tamsulosin HCl [Flomax] 0.4 mg PO DAILY Budesonide/Formoterol 160/4.5 [Symbicort 160/4.5] 2 puff IH BIDR Venlafaxine HCl [Venlafaxine HCl ER] 37.5 mg PO QAM Cholecalciferol (Vitamin D3) [Vitamin D3] 1,000 unit PO QDPC Albuterol Sulfate [Albuterol Inhaler] 2 puff IH Q6HR PRN PRN Reason: SOB/WHEEZING Albuterol Neb [Proventil Neb] 2.5 mg IH TID Pantoprazole Sodium [Protonix] 40 mg PO DAILY Folic Acid 1 mg PO DAILY Oxygen 1 each .ROUTE AD Furosemide [Lasix] 20 mg PO Q48H Nitroglycerin [Nitrostat] 0.4 mg SL Q5M PRN PRN Reason: Chest Pain Home Medications: Albuterol Sulfate [Albuterol Inhaler] 2 puff IH Q6HR PRN 11/23/18 [History] Aspirin [Lo-Dose Aspirin EC] 81 mg PO DAILY 11/23/18 [History] Budesonide/Formoterol 160/4.5 [Symbicort 160/4.5] 2 puff IH BIDR 11/23/18 [ History] Buspirone HCl [Buspar] 7.5 mg PO DAILY@1500 11/23/18 [History] Cholecalciferol (Vitamin D3) [Vitamin D3] 1,000 unit PO QDPC 11/23/18 [History] Pregabalin [Lyrica] 75 mg PO QDPC 11/23/18 [History] Tamsulosin HCl [Flomax] 0.4 mg PO DAILY 11/23/18 [History] Venlafaxine HCl [Venlafaxine HCl ER] 37.5 mg PO QAM 11/23/18 [History] clonazePAM [Clonazepam] 1 mg PO BID 11/23/18 [History] Furosemide [Lasix] 20 mg PO Q48H 12/12/18 [History] Nitroglycerin [Nitrostat] 0.4 mg SL Q5M PRN 12/12/18 [History] Oxygen 1 each .ROUTE AD 12/12/18 [History] Albuterol Neb [Proventil Neb] 2.5 mg IH TID 12/13/18 [History] Pantoprazole Sodium [Protonix] 40 mg PO DAILY 12/13/18 [History] Folic Acid 1 mg PO DAILY 01/06/19 [History] Furosemide [Lasix] 20 mg PO DAILY #30 tablet 01/12/19 [Rx] Isosorbide MONOnitrate (24 HR) [Imdur] 30 mg PO DAILY #30 tab.er.24h 01/12/19 [Rx] Metoprolol XL (24 HR) Succ [Toprol Xl] 25 mg PO BID #60 tab.er.24h 01/12/19 [Rx] Allergies/Adverse Reactions: Allergy/AdvReac Type Severity Reaction Status Date / Time phenytoin [From Dilantin] AdvReac See Verified 01/06/19 21:58 Comments Date of admission: 01/07/19 12:53 Primary care physician: Román Alvarado MD Consults: 01/06/19 16:22 Consult to Vascular Surgery [CONS] Routine Consulting Provider: Vascular Surgery Becky Reason for Consult: New PE. Low platelets. Cant anticoagulate. Would IVC be beneficial Call Completed: Yes 01/07/19 12:36 Consult to Cardiology [CONS] Routine Comment: Consulting Provider: Cardiology [facility] Reason for Consult: New low EF Call Completed: Yes 01/11/19 11:53 Consult to File Clerk [CONS] Stat Reason for SW Consult: Need for possible bipap/overnight study - Constitutional Vitals: Temp Pulse Resp BP Pulse Ox 98.3 F 91 20 117/72 96 01/12/19 10:43 01/12/19 10:43 01/12/19 10:43 01/12/19 10:43 01/12/19 10:43 Exam: General appearance: No acute distress, o2 via NC Eye exam: EOMI, PERRLA ENT exam: Moist oral mucosa Neck nontender, supple Respiratory exam: Decreased breath sound bilaterally with few crepts-slight better than yesterday Cardiovascular exam: Regular rate and rhythm, no systolic murmur Abdominal exam: Soft, nontender, nondistended, positive bowel sounds Extremities exam: No calf tenderness, +1 pedal edema Present: Neurological exam: Alert, awake, oriented 3, CN II-XII intact, no focal deficits. - Patient Status Disposition: Home, Self-Care Condition: Fair Overall status at discharge: patient is progressing back to baseline - Discharge Instructions Follow Up With: Roxanne Boggs MD [Partnered Physician] - (Per the office they will call the patient at home with a follow up appointment) Román Alvarado MD [Primary Care Provider] - 01/17/19 10:50 am - Diet and Activity Activity: as per the cardiac rehab Diet: low fat, low cholesterol, low salt diet - VTE Reasons for not Prescribing Prophylaxis: Medical contraindication
[2019-01-12] MEDS ORDERED: Furosemide 20 MG TABLET PO SCH (11:15)
== END 2019-01-12 16:42 | disposition home or self-care (01) | DRG 252 ==
LOC: 2ANU → SUATTDRO 14:25 → 2NNU 01-08 14:02 → 2ANU 01-11 19:29
PROVIDERS: ADMIT Internal Medicine; ATTEND Internal Medicine

== ENCOUNTER 2019-01-16 16:38 | Inpatient (IN) ==
[2019-01-16] MEDS ORDERED: Acetaminophen 325 MG TABLET PO PRN (22:07)
[2019-01-16] MEDS ORDERED: Naloxone 0.4 MG/ML INJ IVP PRN (22:07)
[2019-01-16] MEDS ORDERED: Albuterol 2.5 MG/3 ML NEBULIZER IH PRN (22:07)
[2019-01-16] MEDS ORDERED: Nitroglycerin 0.4 MG TAB.SUBL SL PRN (22:11)
[2019-01-16] MEDS ORDERED: Furosemide 240 MG in D5% in Water 96 ML IVC SCH (22:15)
[2019-01-16 22:45] LABS: Hemoglobin 11.6 g/dL (12.9-16.9); Immature Granulocytes % 0.6 % (0-4); Mean Corpuscular Hemoglobin 26.9 pg (28.0-33.3)
[2019-01-16 22:47] LABS: Basophils % 0.6 %; Eosinophils # 0.1 K/mcL (0.0-0.6); Hematocrit 38.8 % (37.5-50.1); Immature Platelets 9.4 % (1.1-6.1); Lymphocytes # 0.4 K/mcL (0.6-4.6); Lymphocytes % 12.5 %; Mean Corpuscular HGB Conc 29.9 g/dL (31.6-35.5); Mean Platelet Volume 11.1 fL (9.4-12.4); Monocytes # 0.4 K/mcL (0.0-1.3); Monocytes % 11.6 %; Neutrophils # 2.5 K/mcL (1.6-8.9); Red Blood Count 4.31 M/mcL (4.19-5.50); Red Cell Distribution Width 19.1 % (11.5-14.5); Segmented Neutrophils % 72.7 %
[2019-01-16 22:49] LABS: Platelet Count 84 K/mcL (140-400)
[2019-01-16 22:54] LABS: INR 1.3; Prothrombin Time 14.3 Seconds (9.4-12.1)
[2019-01-16 22:56] LABS: Activated Partial Thrombo Time 29.4 Seconds (26.0-36.0)
[2019-01-16] MEDS ORDERED: Levofloxacin 750 MG/150 ML 750 MG/150 ML BAG IVPB SCH (23:00)
[2019-01-16] MEDS: clonazePAM 1 MG TABLET PO SCH (23:07)
[2019-01-16 23:09] LABS: Alanine Aminotransferase 18 Units/L (7-52); Albumin 3.7 g/dL (3.5-5.7); Albumin/Globulin Ratio 1.3 (1.1-2.2); Alkaline Phosphatase 112 Units/L (34-104); Aspartate Amino Transferase 18 Units/L (13-39); BUN/Creatinine Ratio 17 (6-26); Bilirubin,Total 0.7 mg/dL (0.3-1.0); Blood Urea Nitrogen 23 mg/dL (8-23); Calcium 9.6 mg/dL (8.6-10.3); Carbon Dioxide 42 mEq/L (23-29); Chloride 98 mEq/L (98-107); Globulin 2.9 g/dL (2.4-3.5); Glucose 104 mg/dL (70-105); Magnesium 1.3 mg/dL (1.6-2.6); Osmolality,Calculated 300 (280-300); Phosphorous 3.1 mg/dL (2.7-4.5); Potassium 4.3 mEq/L (3.5-5.1); Sodium 143 mEq/L (136-145); Total Protein 6.6 g/dL (6.4-8.9); eGFR For Non-African Americans 54 (> 60)
[2019-01-16] MEDS: *HR* Morphine 2 MG/ML SYRINGE IVP PRN (23:11)
[2019-01-16] MEDS: Ipratropium/Albuterol Neb 3 ML IH SCH (23:50)
[2019-01-16] MEDS: Metoprolol XL (24 HR) Succ 25 MG TAB.ER.24H PO SCH (23:50)
[2019-01-17] MEDS: *HR* Morphine 2 MG/ML SYRINGE IVP PRN ×2 (03:31→11:57)
[2019-01-17] MEDS: Ipratropium/Albuterol Neb 3 ML IH SCH ×4 (04:10→22:04)
--- NOTE | 2019-01-17 05:17 | Internal Med History&Physical ---
Date of Encounter: 01/16/19 Time of Encounter: 21:50 Internal Medicine - H&P: HPI Chief complaint: SOB; CP Admitted From: Hospital to Hospital Transfer Plans for Post Hospital Care: Home History of present illness: Mr. Stevenson is a 68 year old male who presents to [facility] from [place] [facility] for concerns of shortness of breath, CHF, and chest pain. Patient was recently discharged from [facility] after having been found to have PE and undergoing IVC filter placement. He was not started on anticoagulation due to high risk of bleeding from cirrhosis and severe thrombocytopenia. He came to the [place] ER today with complaints of vague chest tightness, significant edema, shortness of breath, and significant exertional dyspnea. He was found to have evidence of CHF and clinical concern for chest pain. He was therefore transferred to [facility]. Upon my assessment of the patient, his chest pain is essentially gone. He does have some dyspnea, orthopnea, and significant peripheral edema. He was feeling well after discharge until 2 days ago when he started noticing the fluid retention, weight gain, dyspnea, and vague chest tightness. He denies any fevers, chills, or night sweats. Appetite has been diminished. He does complain of increased abdominal girth and edema of his legs. Past Med Surg Social Fam HX - Past Medical History Attestation: Yes The following information was validated with the patient. Source: patient, old records reviewed Medical history: cirrhosis, CHF, COPD, coronary artery disease, GERD, hepatitis, myocardial infarction, renal disease Psychiatric history: anxiety, depression, panic disorder, PTSD - Past Surgical History Surgical History: angioplasty/stent, IVC Filter Additional surgical history: CARDIAC STENT 1995, filter - Social History Smoking Status: Former smoker Alcohol use: rarely Drug use: none Current living situation: Home Activity Level: Independent ambulation Recent Out of Country Travel Within the Last 8 Weeks: No - Family History Mother Living Status: Hx Family Respiratory Disorders: Yes (pneumonia) Hx Family Cancer: Yes (lung) Father Living Status: Hx Family Respiratory Disorders: Yes (COPD) Hx Family Cancer: Yes (lung) Internal Medicine - H&P: Meds Albuterol Sulfate [Albuterol Inhaler] 2 puff IH Q6HR PRN 11/23/18 [History] Aspirin [Lo-Dose Aspirin EC] 81 mg PO DAILY 11/23/18 [History] Budesonide/Formoterol 160/4.5 [Symbicort 160/4.5] 2 puff IH BIDR 11/23/18 [History] Buspirone HCl [Buspar] 7.5 mg PO DAILY@1500 11/23/18 [History] Cholecalciferol (Vitamin D3) [Vitamin D3] 1,000 unit PO QDPC 11/23/18 [History] Pregabalin [Lyrica] 75 mg PO QDPC 11/23/18 [History] Tamsulosin HCl [Flomax] 0.4 mg PO DAILY 11/23/18 [History] Venlafaxine HCl [Venlafaxine HCl ER] 37.5 mg PO QAM 11/23/18 [History] clonazePAM [Clonazepam] 1 mg PO BID 11/23/18 [History] Furosemide [Lasix] 20 mg PO Q48H 12/12/18 [History] Nitroglycerin [Nitrostat] 0.4 mg SL Q5M PRN 12/12/18 [History] Oxygen 1 each .ROUTE AD 12/12/18 [History] Albuterol Neb [Proventil Neb] 2.5 mg IH TID 12/13/18 [History] Pantoprazole Sodium [Protonix] 40 mg PO DAILY 12/13/18 [History] Folic Acid 1 mg PO DAILY 01/06/19 [History] Furosemide [Lasix] 20 mg PO DAILY #30 tablet 01/12/19 [Rx] Isosorbide MONOnitrate (24 HR) [Imdur] 30 mg PO DAILY #30 tab.er.24h 01/12/19 [Rx] Metoprolol XL (24 HR) Succ [Toprol Xl] 25 mg PO BID #60 tab.er.24h 01/12/19 [Rx] Allergy/AdvReac Type Severity Reaction Status Date / Time phenytoin [From Dilantin] AdvReac See Verified 01/06/19 21:58 Comments - Constitutional Constitutional: no chills, no fever(s), no night sweats - EENT Eyes: no blurry vision, no change in vision Ears: no ear pain, no tinnitus Nose, mouth and throat: no nasal congestion, no sinus pressure, no sore throat - Cardiovascular Cardiovascular ROS IM: chest pain, dyspnea, dyspnea on exertion, edema, orthopnea, paroxysmal nocturnal dyspnea, no lightheadedness, no syncope - Respiratory Respiratory: dyspnea, no cough, no hemoptysis, no chest congestion, no excessive phlegm production, no change in phlegm color, no pain with cough - Gastrointestinal Gastrointestinal: no abdominal pain, no diarrhea, no hematemesis, no hematochezia, no melena, no nausea, no vomiting - Genitourinary Genitourinary ROS male: no dysuria, no flank pain, no hematuria - Musculoskeletal Musculoskeletal ROS IM: no arthralgias, no back pain, no muscle weakness - Integumentary Integumentary IM: no rash, no jaundice - Neurological Neurological ROS: no convulsions, no disequilibrium, no dizziness, no focal weakness, no frequent falls, no headache(s) - Psychiatric Psychiatric: no anxiety, no depression - Endocrine Endocrine IM: no polydipsia, no polyuria - Allergic/Immunologic Allergic/Immunologic: wheezing, no GI upset with certain foods - Constitutional Vitals: Temp Pulse Resp BP Pulse Ox 97.6 F 99 20 111/73 97 01/17/19 03:23 01/17/19 03:23 01/17/19 04:10 01/17/19 03:23 01/17/19 04:10 General appearance: Present: cooperative, A&O X 3, pleasant, no acute distress, answers questions appropriately Exam: see below - Head Head exam: Present: atraumatic, normal inspection - Eye Eye exam: Present: EOMI, PERRL. Absent: scleral icterus Pupils: Present: normal accommodation - ENT ENT exam: Present: mucous membranes dry, normal exam, normal oropharynx - Neck Neck exam general surgery: Present: full ROM, supple, trachea midline. Absent: tenderness, nuchal rigidity, thyromegaly - Respiratory Respiratory exam: Present: rales (both bases about half way up), rhonchi. Absent: chest wall tenderness, respiratory distress, wheezes, tachypnea - Cardiovascular Cardiovascular exam: Present: distant heart sounds, RRR, +S1, +S2. Absent: diastolic murmur, systolic murmur - GI/Abdominal GI/Abdominal exam: Present: normal bowel sounds, soft. Absent: guarding, hepatomegaly, mass, rebound, splenomegaly, tenderness - Extremities Exam Extremities exam: Present: full ROM, pedal edema (3-4 +), warm, radial pulses palpable and symmetrical. Absent: calf tenderness, tenderness - Back Exam Back exam: Absent: CVA tenderness (L), CVA tenderness (R) - Neurological Exam Neurological exam: Present: alert, CN II-XII intact, oriented X3, strengths equal and symetr throughout - Psychiatric Psychiatric exam: Present: normal affect, normal mood - Skin Skin exam: Present: dry, intact, warm Internal Med - H&P Results - Labs CBC & Chem 7: 01/16/19 22:32 01/16/19 22:32 Labs: Short CBC 01/16/19 Range/Units 22:32 WBC 3.5 L (4.3-11.1) K/mcL Hgb 11.6 L (12.9-16.9) g/dL Hct 38.8 (37.5-50.1) % Plt Count 84 L (140-400) K/mcL Neutrophils # 2.5 (1.6-8.9) K/mcL BMP 01/16/19 22:32 Sodium 143 Potassium 4.3 Chloride 98 Carbon Dioxide 42 H* BUN 23 Creatinine 1.33 H Glucose 104 Calcium 9.6 Cardiac Enzymes 01/16/19 Range/Units 22:32 Troponin I < 0.03 (< 0.04) ng/mL Liver Function 01/16/19 Range/Units 22:32 Total Bilirubin 0.7 (0.3-1.0) mg/dL AST 18 (13-39) Units/L ALT 18 (7-52) Units/L Alkaline Phosphatase 112 H (34-104) Units/L Albumin 3.7 (3.5-5.7) g/dL - EKG Data -: EKG Interpreted by Myself - EKG Data Prior EKG available for review: yes When compared to previous EKG: there is no significant change EKG comments: 01/17/19 05:23 NSR; LBBB; no change - Diagnostic Studies Chest x-ray Status: image reviewed by me (mild CHF) - Assessment and Plan (1) CHF (congestive heart failure) Current Visit: Yes Status: Acute Assessment and plan: 1. Lasix drip with slow titration up. 2. 1500 ml/day fluid restriction. 3. Trend troponins and EKG's. 4. Oxygen as needed. Qualifiers: Heart failure type: systolic Heart failure chronicity: acute on chronic Qualified Code(s): I50.23 - Acute on chronic systolic (congestive) heart failure (2) Pulmonary embolism Current Visit: Yes Status: Chronic Assessment and plan: 1. S/P IVF filter. 2. Unable to anti-coagulate due to cirrhosis and severe thrombocytopenia. 3. Monitor clinically; patient currently CP free. Qualifiers: Pulmonary embolism type: unspecified Acute cor pulmonale presence: without acute cor pulmonale Qualified Code(s): I26.99 - Other pulmonary embolism without acute cor pulmonale (3) CAD (coronary artery disease) Current Visit: Yes Status: Chronic Assessment and plan: 1. Trend troponis and EKG's as above. 2. Monitor on telemetry. 3. Per cardiology's notes last visit -- patient not a candidate for intervention and/or invasive work-up. Qualifiers: Coronary Disease-Associated Artery/Lesion type: [place] artery [place] vs. transplanted heart: [place] heart Associated angina: with other forms of angina Qualified Code(s): I25.118 - Atherosclerotic heart disease of [place] coronary artery with other forms of angina pectoris (4) DVT prophylaxis Current Visit: Yes Status: Acute Assessment and plan: 1. EPCD's.
[2019-01-17 05:28] LABS: Chol/HDL Ratio 2.5 (0-4.9)
[2019-01-17] MEDS: clonazePAM 1 MG TABLET PO SCH (07:11)
[2019-01-17] MEDS: Aspirin Enteric Coated 81 MG Tablet PO SCH (07:11)
[2019-01-17] MEDS: Metoprolol XL (24 HR) Succ 25 MG TAB.ER.24H PO SCH ×2 (07:11→22:00)
[2019-01-17] MEDS: Budesonide/Formoterol 160/4.5 1 PUFF INH IH SCH ×2 (10:41→22:04)
[2019-01-17] MEDS ORDERED: Perflutren Lipid Microsphere 1.3 ML in 0.9 % Sodium Chloride 8.7 ML IVP ONE (11:06)
[2019-01-17] MEDS ORDERED: Perflutren Lipid Microsphere 2 ML VIAL ONE (11:09)
[2019-01-17] MEDS: Ondansetron 4 MG/2 ML VIAL IVP PRN ×2 (11:56→20:11)
--- NOTE | 2019-01-17 13:32 | Cardiology Consult Note ---
Date of Encounter: 01/17/19 Time of Encounter: 13:20 Assessment and Plan (1) CAD (coronary artery disease) Current Visit: Yes Status: Chronic -Patient has a history of CAD status post PCI in 1995. - Troponis were negative on admission. -EKG was negative for any ST-T changes, heart strain/ block, LVH,HOCM, Brugada or WPW. -Had a reduction in his ejection fraction during his last admission from a 50% to 25-30%. -Patient was recommended medical therapy during his last admission and was on Toprol XL 25mg PO BID, Imdur 30mg. -No catherterization was recommended because of his history of cirrhosis , thromobocytopenia and recent PE PLAN: - will increase his long acting anti anginal coverage from 30 to 60 mg Imdur. Qualifiers: Coronary Disease-Associated Artery/Lesion type: [place] artery [place] vs. transplanted heart: [place] heart Associated angina: with other forms of angina Qualified Code(s): I25.118 - Atherosclerotic heart disease of [place] coronary artery with other forms of angina pectoris (2) CHF (congestive heart failure) Current Visit: Yes Status: Acute -Patient has a history of CHF -His most recent echo showed an LVEF of 25-30% which was a drop from his prior echo is LVEF of 50%. -He takes Lasix 20 mg daily at home. -On physical exam he has 1+ pitting edema, Rales bilaterally on lung bases, no evidence of S3 or JVD -Continue on lasix drip, Strict Is/Os, daily weight check, fluid restriction to < 1.5L/daily. PLAN: - continue lasix drip. - will add aldactone 12.5 mg for better diuresis because of his Hx of Cirrhosis . - Monitor BUN/Cr and potassium everyday - will increase Aldactone to 25 mg tomorrow if patient's BP tolerates Qualifiers: Heart failure type: systolic Heart failure chronicity: acute on chronic Qualified Code(s): I50.23 - Acute on chronic systolic (congestive) heart failure Discussion w patient/family: The assessment and plan as outlined above was discussed with the patient and/or family members who expressed understanding and agreement. All questions were answered. Thank you for involving us in the care of your patient. Please call with any questions. History of Present Illness Consult date: 01/17/19 History of present illness: Mr. Stevenson is a 68 year old male with a past medical history of CHF, COPD, thrombocytopenia, cirrhosis, pulmonary embolism status post IVC filter CKD, CAD (s/p PCI in 1995) who presented to the ED because of exertional dyspnea, shortness of breath, chest tightness along with some chest pain that began yesterday when he was watching TV. Patient also endorses intermittent episodes of paroxysmal nocturnal dyspnea and orthopnea. Of note, patient was recently admitted for the same symptoms about a week ago and was found to have reduction in EF from a 50% to 25-30%. However, he endorses that his chest pain this time is worse than the last time. During his prior admission, patient was not found to be candidate for a cardiac catheterization because of history of pulmonary embolism, cirrhosis,CKD and thrombocytopenia. Patient was recommended to resume management and was told to continue his Toprol, Imdur with addition of tashi inhibitors if blood pressure tolerates. He also had an IVC filter placement by Dr. Temple on 01/06 for his pulmonary embolism. Patient was not a candidate for anticoagulation because of history of cirrhosis and thrombocytopenia. Initial workup in the ED showed that patient's troponins were negative. Initial EKG showed left bundle branch block, HR: 97 . Repeat EKG showed the intraventricular conduction delay with HR: 97. Cardiology was consulted for fur ther management of his CHF and CAD. Past Med Surg Social Fam HX - Past Medical History Medical history: cirrhosis, CHF, COPD, coronary artery disease, GERD, hepatitis, myocardial infarction, renal disease Psychiatric history: anxiety, depression, panic disorder, PTSD - Past Surgical History Surgical History: angioplasty/stent, IVC Filter Additional surgical history: CARDIAC STENT 1995, filter - Social History Smoking Status: Former smoker Alcohol use: rarely Drug use: none - Family History Mother Living Status: Hx Family Respiratory Disorders: Yes (pneumonia) Hx Family Cancer: Yes (lung) Father Living Status: Hx Family Respiratory Disorders: Yes (COPD) Hx Family Cancer: Yes (lung) Medications and Allergies Budesonide/Formoterol 160/4.5 [Symbicort 160/4.5] 2 puff IH BID 11/23/18 [History] Buspirone HCl [Buspar] 7.5 mg PO DAILY@1500 11/23/18 [History] Cholecalciferol (Vitamin D3) [Vitamin D3] 1,000 unit PO QDPC 11/23/18 [History] Pregabalin [Lyrica] 75 mg PO BID 11/23/18 [History] Tamsulosin HCl [Flomax] 0.4 mg PO DAILY 11/23/18 [History] Venlafaxine HCl [Venlafaxine HCl ER] 37.5 mg PO QAM 11/23/18 [History] clonazePAM [Clonazepam] 1 mg PO BID 11/23/18 [History] Furosemide [Lasix] 20 mg PO DAILY 12/12/18 [History] Nitroglycerin [Nitrostat] 0.4 mg SL Q5M PRN 12/12/18 [History] Albuterol Neb [Proventil Neb] 2.5 mg IH TID 12/13/18 [History] Pantoprazole Sodium [Protonix] 40 mg PO DAILY 12/13/18 [History] Folic Acid 1 mg PO DAILY 01/06/19 [History] Isosorbide MONOnitrate (24 HR) [Imdur] 30 mg PO DAILY #30 tab.er.24h 01/12/19 [Rx] Metoprolol XL (24 HR) Succ [Toprol Xl] 25 mg PO BID #60 tab.er.24h 01/12/19 [Rx] Albuterol Sulfate [Albuterol Inhaler] 2 puff IH Q4H PRN 01/17/19 [History] Aspirin [Adult Aspirin Regimen] 81 mg PO DAILY 01/17/19 [History] Allergy/AdvReac Type Severity Reaction Status Date / Time phenytoin [From Dilantin] AdvReac See Verified 01/17/19 10:59 Comments All Systems Review: The remainder of the systems were reviewed and are negative - Constitutional Constitutional: no fever(s) - Cardiovascular Cardiovascular: chest pain at rest - Respiratory Respiratory: dyspnea - Genitourinary Genitourinary: no dysuria - Musculoskeletal Musculoskeletal: no abnormal gait Physical Examination Vital Signs, Last 4 Hours Temp Pulse Resp BP Pulse Ox 01/17/19 12:00 97.7 F 89 17 114/74 97 01/17/19 10:42 18 95 Other: Gen.: Vitals noted. No acute distress. Alert, awake and oriented * 3 to person, place, and time, well developed, well-nourished resting comfortably in bed. Pleasant. HEENT: oropharynx clear, Normocephalic, atraumatic, MMM Neck: supple, no JVD, no lymphadenopathy, no carotid bruit. Cardiac: RRR, no murmur, +S1/S2, PMI non-displaced Pulmonary: rales bilaterally in lung bases. Abdomen: soft, nontender, BS noted, no guarding, mildly distended. No organomegaly, no pulsatile masses, Skin: warm and dry, no visible lesions. Feels warm, clammy, no rashes, no lesions, no erythema MSK: Grade 1 pitting edema, ROM not assessed. no joint swelling noted, gait not assessed while in bed. Non tender calf or clubbing, no cyanosis/clubbing/ Neuro: A&O, moves all extremities, no focal deficits, sensation intact Psych: Appropriate mood and behavior, normal speech. Results 01/16/19 22:32 01/16/19 22:32 Lab Results 01/16/19 01/16/19 01/16/19 22:32 22:32 22:32 WBC 3.5 L Hgb 11.6 L Hct 38.8 Plt Count 84 L INR 1.3 APTT 29.4 Sodium 143 Potassium 4.3 Chloride 98 Carbon Dioxide 42 H* BUN 23 Creatinine 1.33 H Glucose 104 Calcium 9.6 Magnesium 1.3 L Total Bilirubin 0.7 AST 18 ALT 18 Alkaline Phosphatase 112 H Troponin I 01/16/19 01/17/19 01/17/19 22:32 04:15 10:44 WBC Hgb Hct Plt Count INR APTT Sodium Potassium Chloride Carbon Dioxide BUN Creatinine Glucose Calcium Magnesium Total Bilirubin AST ALT Alkaline Phosphatase Troponin I < 0.03 < 0.03 < 0.03 Consult Discharge Plan - Plan Referrals: Román Alvarado MD [Non-Partnered Physician] - 01/23/19 12:20 pm
[2019-01-17] MEDS: Spironolactone 25 MG TABLET PO SCH (15:07)
[2019-01-17] MEDS: Isosorbide MONOnitrate (24 HR) 60 MG TAB.ER.24H PO SCH (15:07)
--- NOTE | 2019-01-17 18:53 | Event Note ---
Date of Encounter: 01/17/19 Time of Encounter: 09:00 Patient still has constant chest pain, no radiation. Improved shortness of breath after diuretics use. Patient was seen by overnight stocker early this morning. Management plan please refer H&P. Briefly, continue IV Lasix, fluid restriction for CHF, Switch Lasix drip to IVP. Repeated Echo shows EF 35% Will d/c levaquin as pt has no signs of infection/pneumonia. Cardio consult appreciated.
[2019-01-17] MEDS: *HR* HYDROcodone/Acet 5/325 mg TABLET PO PRN (21:51)
[2019-01-18] MEDS: clonazePAM 1 MG TABLET PO SCH ×3 (00:15→21:02)
[2019-01-18] MEDS: Ipratropium/Albuterol Neb 3 ML IH SCH ×4 (04:03→22:53)
[2019-01-18] MEDS: *HR* HYDROcodone/Acet 5/325 mg TABLET PO PRN ×3 (04:45→18:24)
[2019-01-18 05:54] LABS: Basophils % 0.3 %; Mean Corpuscular Hemoglobin 27.1 pg (28.0-33.3); Red Cell Distribution Width 18.6 % (11.5-14.5)
[2019-01-18 05:55] LABS: Eosinophils # 0.1 K/mcL (0.0-0.6); Eosinophils % 1.7 %; Hematocrit 36.1 % (37.5-50.1); Hemoglobin 10.7 g/dL (12.9-16.9); Immature Granulocytes % 0.8 % (0-4); Immature Platelets 10.3 % (1.1-6.1); Lymphocytes # 0.5 K/mcL (0.6-4.6); Mean Corpuscular HGB Conc 29.6 g/dL (31.6-35.5); Mean Corpuscular Volume 91.4 fL (83.0-100.0); Mean Platelet Volume 11.5 fL (9.4-12.4); Monocytes # 0.4 K/mcL (0.0-1.3); Monocytes % 11.3 %; Neutrophils # 2.6 K/mcL (1.6-8.9); Red Blood Count 3.95 M/mcL (4.19-5.50); Segmented Neutrophils % 72.9 %
[2019-01-18 05:58] LABS: Platelet Count 85 K/mcL (140-400)
[2019-01-18 06:12] LABS: Calcium 9.4 mg/dL (8.6-10.3); Potassium 4.1 mEq/L (3.5-5.1)
--- NOTE | 2019-01-18 08:00 | Internal Med Progress Note ---
Hospitalist Progress Note - Encounter Date of Encounter: 01/18/19 Time of Encounter: 08:08 - Subjective Interval History: Patient seen and examined this morning at bedside. No acute overnight events. Denies new complaints. Breathing improved compared to admission. Chest discomfort also improved compared to admission. Denies any nausea vomiting or d iarrhea. Denies any fevers or chills. Afebrile and hemodynamically stable. - Exam Vitals: Temp Pulse Resp BP Pulse Ox 98.1 F 82 15 106/55 95 01/18/19 07:18 01/18/19 07:18 01/18/19 07:18 01/18/19 07:18 01/18/19 07:18 Exam: General: In no acute distress. Respiratory exam: no accessory muscle use. crackles till midlung field Cardiovascular exam: RRR, +S1, +S2. no murmur, gallop, rubs. GI/Abdominal exam: Non-tender, Non-distended, soft, no peritoneal signs. Extremities exam: 2+ pedal edema, pulses palpable in b/l lower extremities. no calf tenderness Neurological exam: CN II-XII intact, AO X3, no focal deficits. Skin exam: ecchymosis on UE b/l - Assessment and Plan (1) DVT prophylaxis Current Visit: Yes Status: Acute (2) CAD (coronary artery disease) Current Visit: Yes Status: Chronic (3) CHF (congestive heart failure) Current Visit: Yes Status: Acute (4) Pulmonary embolism Current Visit: Yes Status: Chronic - Summary of Assessment and Plan Summary of Assessment and Plan: Assessment Acute exacerbation of systolic CHF Pulmonary embolism Coronary artery disease COPD cirrhosis from Hep c CKD anxiety, depressioin DVT prophylaxis h/o 30 pack year smoking Plan - Recent history of decreased ejection fraction but was recommended medical therapy given cirrhosis, thrombocytopenia and PE. Imdur dose increase for chest pain or cardiology - Lasix strip changed to IV 40. Still needs diuresis. Will add albumin to morning lasix and 20 lasix in evening as also started on Aldactone per ca rdiology given cirrhosis and CHF systolic. Monitor renal functioin. Currently stable CKD. - antibiotics stopped. - Continue daily weights, fluid restriction to 1.5 L a day - patient has IVC filter and not on anticoagulation for Pulmonary embolism given thrombocytopenia. thrombocytopenia stable. - c/w home symbicort and prn nebs - Retaining co2. Will get bipap evaluation after diuresing for 1-2 days. - start home bph and depression medication. Monitor on tele and BP. - EPCD's. - Time Spent with Patient Total time spent is greater than 50% in coordination of care (as documented) at patient's floor/unit and/or counseling patient: Internal Medicine: Result - Labs CBC & Chem 7: 01/18/19 04:54 01/18/19 04:54 Labs: Short CBC 01/18/19 Range/Units 04:54 WBC 3.5 L (4.3-11.1) K/mcL Hgb 10.7 L (12.9-16.9) g/dL Hct 36.1 L (37.5-50.1) % Plt Count 85 L (140-400) K/mcL Neutrophils # 2.6 (1.6-8.9) K/mcL BMP 01/18/19 04:54 Sodium 142 Potassium 4.1 Chloride 95 L Carbon Dioxide 41 H* BUN 30 H Creatinine 1.52 H Glucose 103 Calcium 9.4 Cardiac Enzymes 01/17/19 Range/Units 10:44 Troponin I < 0.03 (< 0.04) ng/mL - ABG Interpretation ABG results: PT/INR, D-dimer PT 14.3 Seconds (9.4-12.1) H 01/16/19 22:32 Consult Discharge Plan - Plan Referrals: Román Alvarado MD [Non-Partnered Physician] - 01/23/19 12:20 pm (2) CAD (coronary artery disease) Qualifiers: Coronary Disease-Associated Artery/Lesion type: [place] artery [place] vs. transplanted heart: [place] heart Associated angina: with other forms of angina Qualified Code(s): I25.118 - Atherosclerotic heart disease of [place] coronary artery with other forms of angina pectoris (3) CHF (congestive heart failure) Qualifiers: Heart failure type: systolic Heart failure chronicity: acute on chronic Qualified Code(s): I50.23 - Acute on chronic systolic (congestive) heart failure (4) Pulmonary embolism Qualifiers: Pulmonary embolism type: unspecified Acute cor pulmonale presence: without acute cor pulmonale Qualified Code(s): I26.99 - Other pulmonary embolism without acute cor pulmonale
[2019-01-18] MEDS ORDERED: Albumin 25% 25gram/100mL 25 GM/100 ML IV.SOLN IVPB ONE (08:07)
[2019-01-18] MEDS: Furosemide 40 MG/4 ML VIAL IVP SCH (09:25)
[2019-01-18] MEDS: Aspirin Enteric Coated 81 MG Tablet PO SCH (09:25)
[2019-01-18] MEDS: Metoprolol XL (24 HR) Succ 25 MG TAB.ER.24H PO SCH ×2 (09:25→20:58)
[2019-01-18] MEDS: Spironolactone 25 MG TABLET PO SCH (09:25)
[2019-01-18] MEDS: Venlafaxine XR (24 HR) 37.5 MG CAP.ER.24H PO SCH (09:26)
[2019-01-18] MEDS: Isosorbide MONOnitrate (24 HR) 60 MG TAB.ER.24H PO SCH (09:26)
[2019-01-18] MEDS: Folic Acid 1 MG TABLET PO SCH (09:27)
[2019-01-18] MEDS: Pregabalin 75 MG CAPSULE PO SCH ×2 (09:27→20:59)
[2019-01-18] MEDS: Budesonide/Formoterol 160/4.5 1 PUFF INH IH SCH ×2 (10:21→22:53)
--- NOTE | 2019-01-18 11:29 | Cardiology Progress Note ---
Date of Encounter: 01/18/19 Time of Encounter: 10:00 Assessment and Plan (1) CAD (coronary artery disease) Current Visit: Yes Status: Chronic -Patient has a history of CAD status post PCI in 1995. - Troponis were negative on admission. -EKG was negative for any ST-T changes, heart strain/ block, LVH,HOCM, Brugada or WPW. -Had a reduction in his ejection fraction during his last admission from a 50% to 25-30%. -Patient was recommended medical therapy during his last admission and was on Toprol XL 25mg PO BID, Imdur 30mg. -No catherterization was recommended because of his history of cirrhosis , thromobocytopenia and recent PE -Continue on long acting anti anginal coverage -60 mg Imdur. Qualifiers: Coronary Disease-Associated Artery/Lesion type: [place] artery [place] vs. transplanted heart: [place] heart Associated angina: with other forms of angina Qualified Code(s): I25.118 - Atherosclerotic heart disease of [place] coronary artery with other forms of angina pectoris (2) CHF (congestive heart failure) Current Visit: Yes Status: Acute -Patient has a history of CHF -His most recent echo showed an LVEF of 25-30% which was a drop from his prior echo is LVEF of 50%. -He takes Lasix 20 mg daily at home. -On physical exam he has 1+ pitting edema, Rales bilaterally on lung bases, no evidence of S3 or JVD -Gentle diuresis given his SONU on CKD -Continue on aldactone 12.5 mg for better diuresis because of his Hx of Cirrhosis -Strict Is/Os, daily weight check, fluid restriction to < 1.5L/daily. Qualifiers: Heart failure type: systolic Heart failure chronicity: acute on chronic Qualified Code(s): I50.23 - Acute on chronic systolic (congestive) heart failure Discussion w patient/family: The assessment and plan as outlined above was discussed with the patient and/or family members who expressed understanding and agreement. All questions were answered. Thank you for involving us in the care of your patient. Please call with any questions. Subjective Principal diagnosis: chest pain Interval history: No acute events overnight. Patient endorses his chest pain is better than yesterday. He denies no dyspnea, orthopnea or PND. He continues to be on day 2 of spironolactone 12.5 mg. Objective Vital Signs, Last 4 Hours Temp Pulse Resp BP Pulse Ox 01/18/19 11:27 98.4 F 91 17 99/59 93 01/18/19 10:22 15 95 Other: Gen.: Vitals noted. No acute distress. Alert, awake and oriented * 3 to person, place, and time, well developed, well-nourished resting comfortably in bed. Pleasant. HEENT: oropharynx clear, Normocephalic, atraumatic, MMM Neck: supple, no JVD, no lymphadenopathy, no carotid bruit. Cardiac: RRR, no murmur, +S1/S2, PMI non-displaced Pulmonary: bilateral crackles Abdomen: soft, nontender, BS noted, no guarding, mildly distended. No organomegaly, no pulsatile masses, Skin: warm and dry, no visible lesions. Feels warm, clammy, no rashes, no lesions, no erythema MSK: Grade 1 pitting edema, ROM not assessed. no joint swelling noted, gait not assessed while in bed. Non tender calf or clubbing, no cyanosis/clubbing/ Neuro: A&O, moves all extremities, no focal deficits, sensation intact Psych: Appropriate mood and behavior, normal speech. Results 01/18/19 04:54 01/18/19 04:54 Lab Results 01/17/19 01/18/19 01/18/19 10:44 04:54 04:54 WBC 3.5 L Hgb 10.7 L Hct 36.1 L Plt Count 85 L Sodium 142 Potassium 4.1 Chloride 95 L Carbon Dioxide 41 H* BUN 30 H Creatinine 1.52 H Glucose 103 Calcium 9.4 Troponin I < 0.03 Consult Discharge Plan - Plan Referrals: Román Alvarado MD [Non-Partnered Physician] - 01/23/19 12:20 pm
[2019-01-18] MEDS ORDERED: Furosemide 20 MG/2 ML VIAL IVP ONE (18:00)
[2019-01-19] MEDS: *HR* HYDROcodone/Acet 5/325 mg TABLET PO PRN ×4 (02:21→22:52)
[2019-01-19] MEDS: Ipratropium/Albuterol Neb 3 ML IH SCH ×4 (03:52→22:03)
[2019-01-19 06:13] LABS: Calcium 9.3 mg/dL (8.6-10.3); Potassium 3.8 mEq/L (3.5-5.1)
[2019-01-19] MEDS: Metoprolol XL (24 HR) Succ 25 MG TAB.ER.24H PO SCH ×2 (09:00→20:50)
[2019-01-19] MEDS: Furosemide 40 MG/4 ML VIAL IVP SCH (09:00)
[2019-01-19] MEDS: Spironolactone 25 MG TABLET PO SCH (09:00)
[2019-01-19] MEDS: Isosorbide MONOnitrate (24 HR) 60 MG TAB.ER.24H PO SCH (09:01)
[2019-01-19] MEDS: Venlafaxine XR (24 HR) 37.5 MG CAP.ER.24H PO SCH (09:01)
[2019-01-19] MEDS: clonazePAM 1 MG TABLET PO SCH ×2 (09:01→20:50)
[2019-01-19] MEDS: Pregabalin 75 MG CAPSULE PO SCH ×2 (09:01→20:50)
[2019-01-19] MEDS: Folic Acid 1 MG TABLET PO SCH (09:01)
[2019-01-19] MEDS: Aspirin Enteric Coated 81 MG Tablet PO SCH (09:01)
[2019-01-19] MEDS: Budesonide/Formoterol 160/4.5 1 PUFF INH IH SCH ×2 (11:04→22:03)
--- NOTE | 2019-01-19 11:59 | Internal Med Progress Note ---
Hospitalist Progress Note - Encounter Date of Encounter: 01/19/19 Time of Encounter: 11:59 - Subjective Interval History: Patient seen and examined this morning at bedside. No acute overnight events. Reports no new symptoms. Breathing is gradually improving. Did report increased urinary output yesterday but did not noticed this in charting. Denies any chest pain. - Exam Vitals: Temp Pulse Resp BP Pulse Ox 97.7 F 89 16 106/65 98 01/19/19 11:29 01/19/19 11:29 01/19/19 11:29 01/19/19 11:29 01/19/19 11:29 Exam: General: In no acute distress. Respiratory exam: no accessory muscle use. crackles till midlung field Cardiovascular exam: RRR, +S1, +S2. no murmur, gallop, rubs. GI/Abdominal exam: Non-tender, Non-distended, soft, no peritoneal signs. Extremities exam: 2+ pedal edema, pulses palpable in b/l lower extremities. no calf tenderness Neurological exam: CN II-XII intact, AO X3, no focal deficits. Skin exam: ecchymosis on UE b/l - Assessment and Plan (1) DVT prophylaxis Current Visit: Yes Status: Acute (2) CAD (coronary artery disease) Current Visit: Yes Status: Chronic (3) CHF (congestive heart failure) Current Visit: Yes Status: Acute (4) Pulmonary embolism Current Visit: Yes Status: Chronic - Summary of Assessment and Plan Summary of Assessment and Plan: Assessment Acute exacerbation of systolic CHF Pulmonary embolism Coronary artery disease COPD cirrhosis from Hep c CKD anxiety, depressioin DVT prophylaxis h/o 30 pack year smoking Plan - Reduce EF of 35% but was recommended medical therapy given cirrhosis, thrombocytopenia and PE. Imdur dose increase for chest pain or cardiology. No invasive intervention recommended - c/w Lasix IV 40 daily. Will again dose with albumin as still with fluid overload and abnormal renal function. Was started on Aldactone per cardiology given cirrhosis and CHF systolic. Renal function slightly worsening today. Will call Nephrology if continues to worsen. Obtain renal ultrasound. - antibiotics stopped given no signs of pnuemonia/infection - Continue daily weights, fluid restriction to 1.5 L a day - patient has IVC filter and not on anticoagulation for Pulmonary embolism given thrombocytopenia. thrombocytopenia stable. - c/w home symbicort and prn nebs - patient was qualified on BiPAP before. CPAP not tried as it is contraindicated for COPD. Will keep patient on Bipap overnight. - c/w tele - c/w home antidepressants and BPH medications. - EPCD. - Time Spent with Patient Total time spent is greater than 50% in coordination of care (as documented) at patient's floor/unit and/or counseling patient: Internal Medicine: Result - Labs CBC & Chem 7: 01/18/19 04:54 01/19/19 05:39 Labs: BMP 01/19/19 05:39 Sodium 140 Potassium 3.8 Chloride 92 L Carbon Dioxide 42 H* BUN 33 H Creatinine 1.60 H Glucose 111 H Calcium 9.3 - ABG Interpretation ABG results: PT/INR, D-dimer PT 14.3 Seconds (9.4-12.1) H 01/16/19 22:32 Consult Discharge Plan - Plan Referrals: Román Alvarado MD [Non-Partnered Physician] - 01/23/19 12:20 pm (2) CAD (coronary artery disease) Qualifiers: Coronary Disease-Associated Artery/Lesion type: [place] artery [place] vs. transplanted heart: [place] heart Associated angina: with other forms of angina Qualified Code(s): I25.118 - Atherosclerotic heart disease of [place] coronary artery with other forms of angina pectoris (3) CHF (congestive heart failure) Qualifiers: Heart failure type: systolic Heart failure chronicity: acute on chronic Qualified Code(s): I50.23 - Acute on chronic systolic (congestive) heart failure (4) Pulmonary embolism Qualifiers: Pulmonary embolism type: unspecified Acute cor pulmonale presence: without acute cor pulmonale Qualified Code(s): I26.99 - Other pulmonary embolism without acute cor pulmonale
--- NOTE | 2019-01-19 13:34 | Cardiology Progress Note ---
Date of Encounter: 01/19/19 Time of Encounter: 09:30 Assessment and Plan (1) CHF (congestive heart failure) Current Visit: Yes Status: Acute -Patient has a history of CHF -His most recent echo showed an LVEF of 25-30% which was a drop from his prior echo is LVEF of 50%. -He takes Lasix 20 mg daily at home. -On physical exam he has 1+ pitting edema, Rales bilaterally on lung bases, no evidence of S3 or JVD -Gentle diuresis given his SONU on CKD -Strict Is/Os, daily weight check, fluid restriction to < 1.5L/daily. PLAN: -Will increase aldactone from 12.5 to 25 mg for better diuresis because of his Hx of Cirrhosis and systolic dysfunction. - will recommend Bumex 1mg PO once discharged for better absorption pharmacokinetics for edema Qualifiers: Heart failure type: systolic Heart failure chronicity: acute on chronic Qualified Code(s): I50.23 - Acute on chronic systolic (congestive) heart failure (2) CAD (coronary artery disease) Current Visit: Yes Status: Chronic -Patient has a history of CAD status post PCI in 1995. - Troponis were negative on admission. -EKG was negative for any ST-T changes, heart strain/ block, LVH,HOCM, Brugada or WPW. -Had a reduction in his ejection fraction during his last admission from a 50% to 25-30%. -Patient was recommended medical therapy during his last admission and was on Toprol XL 25mg PO BID, Imdur 30mg. -No catherterization was recommended because of his history of cirrhosis , thromobocytopenia and recent PE -Continue on long acting anti anginal coverage -60 mg Imdur. Qualifiers: Coronary Disease-Associated Artery/Lesion type: [place] artery [place] vs. transplanted heart: [place] heart Associated angina: with other forms of angina Qualified Code(s): I25.118 - Atherosclerotic heart disease of [place] coronary artery with other forms of angina pectoris Discussion w patient/family: The assessment and plan as outlined above was discussed with the patient and/or family members who expressed understanding and agreement. All questions were answered. Thank you for involving us in the care of your patient. Please call with any questions. Subjective Principal diagnosis: chest pain Interval history: No acute events overnight. Patient endorses his chest pain is better than yesterday. He denies any dyspnes , PND, or orthopnea His pedal edema has been the same as yesterday but no evidence of rales on auscultation. He continues to be on day 2 of spironolactone 12.5 mg which will be bumped to 25 mg. Objective Vital Signs, Last 4 Hours Temp Pulse Resp BP Pulse Ox 01/19/19 11:29 97.7 F 89 16 106/65 98 01/19/19 11:03 20 92 Other: Gen.: Vitals noted. No acute distress. Alert, awake and oriented * 3 to person, place, and time, well developed, well-nourished resting comfortably in bed. Pleasant. HEENT: oropharynx clear, Normocephalic, atraumatic, MMM Neck: supple, no JVD, no lymphadenopathy, no carotid bruit. Cardiac: RRR, no murmur, +S1/S2, PMI non-displaced Pulmonary: CAB , Abdomen: soft, nontender, BS noted, no guarding, mildly distended. No organomegaly, no pulsatile masses, Skin: warm and dry, no visible lesions. Feels warm, clammy, no rashes, no lesions, no erythema MSK: Grade 1 pitting edema, ROM not assessed. no joint swelling noted, gait not assessed while in bed. Non tender calf or clubbing, no cyanosis/clubbing/ Neuro: A&O, moves all extremities, no focal deficits, sensation intact Psych: Appropriate mood and behavior, normal speech. Results 01/18/19 04:54 01/19/19 05:39 Lab Results 01/19/19 05:39 Sodium 140 Potassium 3.8 Chloride 92 L Carbon Dioxide 42 H* BUN 33 H Creatinine 1.60 H Glucose 111 H Calcium 9.3 Consult Discharge Plan - Plan Referrals: Román Alvarado MD [Non-Partnered Physician] - 01/23/19 12:20 pm
[2019-01-19] MEDS: Albumin 25% 25gram/100mL 25 GM/100 ML IV.SOLN IVPB SCH (14:59)
--- NOTE | 2019-01-19 18:24 | Electrocardiograph Report ---
[place] [id number] Test Date: 2019-01-19 Pat Name: Tyler Stevenson Department: 113 Room: 3B23 Gender: M Db2 Dba: : 1950 Requested By: Dustin Dillard Order Number: [id number] Reading MD: Renate Nicole Measurements Intervals [place] Rate: 85 P: 59 HI: 176 QRS: 42 QRSD: 148 T: 64 QT: 419 QTc: 462 Interpretive Statements SINUS RHYTHM INTRAVENTRICULAR CONDUCTION DELAY [130+ ms QRS DURATION] Electronically Signed On 01-19-2019 18:23:21 EDT by Renate Nicole
[2019-01-20] MEDS: Albumin 25% 25gram/100mL 25 GM/100 ML IV.SOLN IVPB SCH ×2 (00:49→08:43)
[2019-01-20 03:59] LABS: Calcium 9.2 mg/dL (8.6-10.3); Potassium 4.3 mEq/L (3.5-5.1)
[2019-01-20] MEDS: Ipratropium/Albuterol Neb 3 ML IH SCH ×4 (04:37→22:26)
[2019-01-20] MEDS: Isosorbide MONOnitrate (24 HR) 60 MG TAB.ER.24H PO SCH (08:43)
[2019-01-20] MEDS: Folic Acid 1 MG TABLET PO SCH (08:43)
[2019-01-20] MEDS: clonazePAM 1 MG TABLET PO SCH ×2 (08:43→19:57)
[2019-01-20] MEDS: Venlafaxine XR (24 HR) 37.5 MG CAP.ER.24H PO SCH (08:43)
[2019-01-20] MEDS: Pregabalin 75 MG CAPSULE PO SCH ×2 (08:43→19:57)
[2019-01-20] MEDS: Spironolactone 25 MG TABLET PO SCH (08:43)
[2019-01-20] MEDS: Metoprolol XL (24 HR) Succ 25 MG TAB.ER.24H PO SCH ×2 (08:43→19:57)
[2019-01-20] MEDS: Furosemide 40 MG/4 ML VIAL IVP SCH (08:44)
[2019-01-20] MEDS: Aspirin Enteric Coated 81 MG Tablet PO SCH (08:44)
[2019-01-20] MEDS: Budesonide/Formoterol 160/4.5 1 PUFF INH IH SCH ×2 (10:43→22:26)
[2019-01-20] MEDS: *HR* HYDROcodone/Acet 5/325 mg TABLET PO PRN ×2 (13:30→20:00)
--- NOTE | 2019-01-20 13:43 | Internal Med Progress Note ---
Hospitalist Progress Note - Encounter Date of Encounter: 01/20/19 Time of Encounter: 11:42 - Subjective Interval History: Patient seen and examined this morning in the center. No acute overnight events. Denies any chest pain . Breathing is gradually improving. Feels he had more urine output early this morning and yesterday night. Denies new complaint. - Exam Vitals: Temp Pulse Resp BP Pulse Ox 97.6 F 91 24 122/78 87 01/20/19 07:35 01/20/19 07:35 01/20/19 10:33 01/20/19 07:35 01/20/19 10:33 Exam: General: In no acute distress. Respiratory exam: no accessory muscle use. crackles b/l till mid lung field Cardiovascular exam: RRR, +S1, +S2. no murmur, gallop, rubs. GI/Abdominal exam: Non-tender, Non-distended, soft, no peritoneal signs. Extremities exam: 1+ pedal edema, pulses palpable in b/l lower extremities. no calf tenderness Neurological exam: CN II-XII intact, AO X3, no focal deficits. Skin exam: ecchymosis on UE b/l - Assessment and Plan (1) DVT prophylaxis Current Visit: Yes Status: Acute (2) CAD (coronary artery disease) Current Visit: Yes Status: Chronic (3) CHF (congestive heart failure) Current Visit: Yes Status: Acute (4) Pulmonary embolism Current Visit: Yes Status: Chronic - Summary of Assessment and Plan Summary of Assessment and Plan: Assessment Acute exacerbation of systolic CHF Pulmonary embolism Coronary artery disease COPD cirrhosis from Hep c CKD anxiety, depressioin DVT prophylaxis h/o 30 pack year smoking Plan - Reduced EF of 35% but was recommended medical therapy given cirrhosis, thrombocytopenia and PE. Imdur dose increase for chest pain or cardiology. No invasive intervention recommended - Lasix changed to torsemide for better diuresis. Continue Aldactone. Slightly better diuresis today however still not significant increased. We will consult nephrology for assistance. renal ultrasound unremarkable. - antibiotics stopped given no signs of pnuemonia/infection - Continue daily weights, fluid restriction to 1.5 L a day - patient has IVC filter and not on anticoagulation for Pulmonary embolism given thrombocytopenia. thrombocytopenia stable. - c/w home symbicort and prn nebs - patient was qualified on BiPAP before. will have to work through insurance issue to get him bipap. - c/w tele - c/w home antidepressants and BPH medications. - EPCD. - Time Spent with Patient Total time spent is greater than 50% in coordination of care (as documented) at patient's floor/unit and/or counseling patient: Internal Medicine: Result - Labs CBC & Chem 7: 01/18/19 04:54 01/20/19 03:21 Labs: BMP 01/20/19 03:21 Sodium 138 Potassium 4.3 Chloride 91 L Carbon Dioxide 43 H* BUN 31 H Creatinine 1.50 H Glucose 114 H Calcium 9.2 - ABG Interpretation ABG results: PT/INR, D-dimer PT 14.3 Seconds (9.4-12.1) H 01/16/19 22:32 - Impressions Impressions Retroperitoneum Ultrasound 01/19/19 22:30 IMPRESSION: Unremarkable ultrasound of the kidneys and urinary bladder. D/ / Fredi Owens MD / Fredi Owens MD Interpreting Provider: Fredi Owens MD Consult Discharge Plan - Plan Referrals: Román Alvarado MD [Non-Partnered Physician] - 01/23/19 12:20 pm (2) CAD (coronary artery disease) Qualifiers: Coronary Disease-Associated Artery/Lesion type: [place] artery [place] vs. transplanted heart: [place] heart Associated angina: with other forms of angina Qualified Code(s): I25.118 - Atherosclerotic heart disease of [place] coronary artery with other forms of angina pectoris (3) CHF (congestive heart failure) Qualifiers: Heart failure type: systolic Heart failure chronicity: acute on chronic Qualified Code(s): I50.23 - Acute on chronic systolic (congestive) heart failure (4) Pulmonary embolism Qualifiers: Pulmonary embolism type: unspecified Acute cor pulmonale presence: without acute cor pulmonale Qualified Code(s): I26.99 - Other pulmonary embolism without acute cor pulmonale
[2019-01-20] MEDS: Menthol 9.1 MG LOZENGE PO PRN (16:10)
[2019-01-21] MEDS: Ipratropium/Albuterol Neb 3 ML IH SCH ×4 (03:30→22:21)
[2019-01-21] MEDS ORDERED: GuaiFENesin Liq 200 MG/10 ML UDC PO PRN (04:40)
[2019-01-21 06:58] LABS: Calcium 9.6 mg/dL (8.6-10.3); Potassium 3.9 mEq/L (3.5-5.1)
--- NOTE | 2019-01-21 08:56 | Internal Med Progress Note ---
Hospitalist Progress Note - Encounter Date of Encounter: 01/21/19 Time of Encounter: 08:14 - Subjective Interval History: She was seen and examined at bedside currently he is eating breakfast he complains of coughing while eating. No other complaints at this time states he did wear his BiPAP last night however he has not taken off around 3:00 because of coughing. - Exam Vitals: Temp Pulse Resp BP Pulse Ox 97.7 F 97 17 104/69 99 01/21/19 07:47 01/21/19 07:47 01/21/19 07:47 01/21/19 07:47 01/21/19 07:47 Exam: General: In no acute distress. Respiratory exam: no accessory muscle use. crackles b/l till mid lung field Cardiovascular exam: RRR, +S1, +S2. no murmur, gallop, rubs. GI/Abdominal exam: Non-tender, Non-distended, soft, no peritoneal signs. Extremities exam: 1+ pedal edema, pulses palpable in b/l lower extremities. no calf tenderness Neurological exam: CN II-XII intact, AO X3, no focal deficits. Skin exam: ecchymosis on UE b/l - Assessment and Plan (1) DVT prophylaxis Current Visit: Yes Status: Acute Assessment and Plan: 1. EPCD's. (2) CAD (coronary artery disease) Current Visit: Yes Status: Chronic Assessment and Plan: 1. Trend troponis and EKG's as above. 2. Monitor on telemetry. 3. Per cardiology's notes last visit -- patient not a candidate for intervention and/or invasive work-up.-Currently denies any chest pain (3) CHF (congestive heart failure) Current Visit: Yes Status: Acute Assessment and Plan: 1. Cardiology consulted recommending increase Aldactone 25 mg daily transition to Bumex 1 mg by mouth twice a day bone discharge. Patient was changed to torsemide 20 mg daily for loop diuretic 2. 1500 ml/day fluid restriction. 3. Troponins negative 4. Oxygen as needed.-BiPAP at night 5. Cardiac echo Impressions: Limited Echo LVEF 35%. Atypical septal motion consistent with bundle branch block. Definity echo contrast was used. Right ventricle is normal in size. Function not optimally evaluated on this limited study. There is a small pericardial effusion present. There is no echocardiographic evidence of tamponade. 6. Nephrology has been consulted with assistance of emily-dariana recommendations (4) Pulmonary embolism Current Visit: Yes Status: Chronic Assessment and Plan: 1. S/P IVF filter. 2. Unable to anti-coagulate due to cirrhosis and severe thrombocytopenia. 3. Monitor clinically; patient currently CP free. - Time Spent with Patient Total time spent is greater than 50% in coordination of care (as documented) at patient's floor/unit and/or counseling patient: Internal Medicine: Result - Labs CBC & Chem 7: 01/18/19 04:54 01/21/19 05:07 Labs: BMP 01/21/19 05:07 Sodium 141 Potassium 3.9 Chloride 94 L Carbon Dioxide 40 H* BUN 30 H Creatinine 1.60 H Glucose 117 H Calcium 9.6 - ABG Interpretation ABG results: PT/INR, D-dimer PT 14.3 Seconds (9.4-12.1) H 01/16/19 22:32 Consult Discharge Plan - Plan Referrals: Román Alvarado MD [Non-Partnered Physician] - 01/23/19 12:20 pm __ (2) CAD (coronary artery disease) Qualifiers: Coronary Disease-Associated Artery/Lesion type: [place] artery [place] vs. transplanted heart: [place] heart Associated angina: with other forms of angina Qualified Code(s): I25.118 - Atherosclerotic heart disease of [place] coronary artery with other forms of angina pectoris (3) CHF (congestive heart failure) Qualifiers: Heart failure type: systolic Heart failure chronicity: acute on chronic Qualified Code(s): I50.23 - Acute on chronic systolic (congestive) heart failure (4) Pulmonary embolism Qualifiers: Pulmonary embolism type: unspecified Acute cor pulmonale presence: without acute cor pulmonale Qualified Code(s): I26.99 - Other pulmonary embolism withou t acute cor pulmonale
[2019-01-21] MEDS: Budesonide/Formoterol 160/4.5 1 PUFF INH IH SCH ×2 (09:26→22:21)
[2019-01-21 09:42] LABS: Bilirubin,Urine Negative (Negative); Blood,Urine Negative (Negative); Clarity,Urine Clear (Clear); Color,Urine Yellow (Yellow); Glucose,Urine (UA) Normal (Normal); Ketones,Urine Negative (Negative); Leukocyte Esterase,Urine Negative (Negative); Nitrite,Urine Negative (Negative); Protein,Urine 100 mg/dL (Neg-Trace); Specific Gravity,Urine 1.019 (1.010-1.025); Urobilinogen,Urine Normal (Normal)
[2019-01-21 09:45] LABS: Bacteria,Urine None Seen per hpf (None-Few); Hyaline Casts,Urine None Seen per lpf (None-Few); RBC,Urine 0-3 per hpf (0-3); Squamous Epithelial Cell,Urine Moderate per lpf (None-Few); WBC,Urine 0-3 per hpf (0-3)
[2019-01-21 09:48] LABS: Creatinine,Urine 134 mg/dL
[2019-01-21] MEDS: Isosorbide MONOnitrate (24 HR) 60 MG TAB.ER.24H PO SCH (09:49)
[2019-01-21] MEDS: Pregabalin 75 MG CAPSULE PO SCH ×2 (09:49→20:22)
[2019-01-21] MEDS: Folic Acid 1 MG TABLET PO SCH (09:49)
[2019-01-21] MEDS: Metoprolol XL (24 HR) Succ 25 MG TAB.ER.24H PO SCH ×2 (09:49→20:22)
[2019-01-21] MEDS: Aspirin Enteric Coated 81 MG Tablet PO SCH (09:49)
[2019-01-21] MEDS: Spironolactone 25 MG TABLET PO SCH (09:49)
[2019-01-21] MEDS: Torsemide 20 MG TABLET PO SCH (09:49)
[2019-01-21] MEDS: clonazePAM 1 MG TABLET PO SCH ×2 (09:49→20:22)
[2019-01-21] MEDS: Venlafaxine XR (24 HR) 37.5 MG CAP.ER.24H PO SCH (09:49)
[2019-01-21] MEDS: Menthol 9.1 MG LOZENGE PO PRN (09:53)
--- NOTE | 2019-01-21 11:51 | Nephrology Consult Note ---
Date of Encounter: 01/21/19 Time of Encounter: 13:20 Assessment and Plan (1) Diuresis Current Visit: Yes Status: Acute Nephro was consulted for help in diuresis of the patient. His volume status is improving he said: continue current care. Met alkalosis: likely secondary to both COPD and contraction alkalosis from diuretics. Okay to added periodic acetazolamide. Will follow along. Thank you for consulting the [facility]. (2) CKD (chronic kidney disease), stage III Current Visit: Yes Status: Acute Noted on his labs. Will recommend checking CKD work up (3) Metabolic alkalosis Current Visit: Yes Status: Acute See above (4) CHF (congestive heart failure) Current Visit: Yes Status: Acute As per primary Qualifiers: Heart failure type: systolic Heart failure chronicity: acute on chronic Qualified Code(s): I50.23 - Acute on chronic systolic (congestive) heart failure (5) Cirrhosis Current Visit: No Status: Chronic As per primary Qualifiers: Hepatic cirrhosis type: unspecified hepatic cirrhosis Ascites presence: without ascites Qualified Code(s): K74.60 - Unspecified cirrhosis of liver (6) Proteinuria Current Visit: Yes Status: Acute Noted on the UA. Will semiquantitate with a spot Urine P/C ratio. If in the nephrotic range, then his edema could be renal related. Qualifiers: Proteinuria type: unspecified Qualified Code(s): R80.9 - Proteinuria, uns pecified History of Present Illness - Reason for Consult Consult date: 01/20/19 Requesting physician: Dustin Dillard - Chief Complaint Request for help in diuresis the patient - History of Present Illness The patient is a very pleasant 68-year-old male with a past medical history of hypertension, hyperlipidemia, smoking/COPD, and edema who presented several days ago. Nephrology was consult to assist with diuresis. The patient said he has not seen a server in the past. He denied taking [id number] NSAIDs. He did not affirm nausea, vomiting, diarrhea. He has chronic shortness of breath, and reported that he was a longtime smoker. He said that his swelling is slowly improving during this admission. Family History: no reported 1st degree relatives with ESRD. Past Med Surg Social Fam HX - Past Medical History Medical history: cirrhosis, CHF, COPD, coronary artery disease, GERD, hepatitis, myocardial infarction, renal disease Psychiatric history: anxiety, depression, panic disorder, PTSD - Past Surgical History Surgical History: angioplasty/stent, IVC Filter Additional surgical history: CARDIAC STENT 1995, filter - Social History Smoking Status: Former smoker Alcohol use: rarely Drug use: none - Family History Mother Living Status: Hx Family Respiratory Disorders: Yes (pneumonia) Hx Family Cancer: Yes (lung) Father Living Status: Hx Family Respiratory Disorders: Yes (COPD) Hx Family Cancer: Yes (lung) Medications and Allergies Budesonide/Formoterol 160/4.5 [Symbicort 160/4.5] 2 puff IH BID 11/23/18 [History] Buspirone HCl [Buspar] 7.5 mg PO DAILY@1500 11/23/18 [History] Cholecalciferol (Vitamin D3) [Vitamin D3] 1,000 unit PO QDPC 11/23/18 [History] Pregabalin [Lyrica] 75 mg PO BID 11/23/18 [History] Tamsulosin HCl [Flomax] 0.4 mg PO DAILY 11/23/18 [History] Venlafaxine HCl [Venlafaxine HCl ER] 37.5 mg PO QAM 11/23/18 [History] clonazePAM [Clonazepam] 1 mg PO BID 11/23/18 [History] Furosemide [Lasix] 20 mg PO DAILY 12/12/18 [History] Nitroglycerin [Nitrostat] 0.4 mg SL Q5M PRN 12/12/18 [History] Albuterol Neb [Proventil Neb] 2.5 mg IH TID 12/13/18 [History] Pantoprazole Sodium [Protonix] 40 mg PO DAILY 12/13/18 [History] Folic Acid 1 mg PO DAILY 01/06/19 [History] Isosorbide MONOnitrate (24 HR) [Imdur] 30 mg PO DAILY #30 tab.er.24h 01/12/19 [Rx] Metoprolol XL (24 HR) Succ [Toprol Xl] 25 mg PO BID #60 tab.er.24h 01/12/19 [Rx] Albuterol Sulfate [Albuterol Inhaler] 2 puff IH Q4H PRN 01/17/19 [History] Aspirin [Adult Aspirin Regimen] 81 mg PO DAILY 01/17/19 [History] Allergy/AdvReac Type Severity Reaction Status Date / Time phenytoin [From Dilantin] AdvReac See Verified 01/17/19 10:59 Comments Review of Systems All Systems: reviewed and no additional remarkable complaints except as stated Exam - Vital Signs Vital signs: Initial Vital Signs Pulse Ox 96 01/16/19 20:51 Vital Signs - Last 8 Hours Temp Pulse Resp BP Pulse Ox 01/21/19 11:33 98.3 F 96 17 104/65 97 01/21/19 09:24 16 104/69 91 01/21/19 07:47 97.7 F 97 17 104/69 99 01/21/19 04:07 98.3 F 90 15 113/70 95 Intake and Output 01/20/19 01/21/19 01/21/19 23:59 07:59 15:59 Intake Total 360 / 360 Balance 360 / 360 Intake: Oral 360 / 360 Other: Meal Dinner Breakfast Percent of Meal Consumed 100% 75% - General Appearance General appearance: well-developed, well-nourished, appears started age, obese, chronically ill, frail EENT: ATNC, PERRL, mucous membranes moist Neck: supple Respiratory: wheezing Cardiology: edema (trace to 1+ pretibial tense edema bilaterally), regular rate, normal S1, normal S2 Gastrointestinal: normoactive bowel sounds, no tenderness, no guarding Integumentary: warm and dry Neurologic: no focal deficit, no asterixis, alert and oriented x3 Musculoskeletal: no deformities, no clubbing Psychiatric: mood/affect appropriate, cooperative Results - Lab Results 01/18/19 04:54 01/21/19 05:07 Most recent lab results 01/20/19 01/21/19 16:22 05:07 Calcium 9.6 Urine Creatinine 134 Consult Discharge Plan - Plan Referrals: Román Alvarado MD [Non-Partnered Physician] - 01/23/19 12:20 pm
[2019-01-22] MEDS: Ipratropium/Albuterol Neb 3 ML IH SCH ×4 (03:57→21:25)
[2019-01-22] MEDS: *HR* HYDROcodone/Acet 5/325 mg TABLET PO PRN ×2 (04:40→19:19)
[2019-01-22 05:22] LABS: Basophils % 0.4 %; Eosinophils # 0.1 K/mcL (0.0-0.6); Eosinophils % 1.3 %; Hematocrit 33.9 % (37.5-50.1); Hemoglobin 10.3 g/dL (12.9-16.9); Immature Granulocytes % 0.4 % (0-4); Lymphocytes # 0.4 K/mcL (0.6-4.6); Lymphocytes % 8.2 %; Mean Corpuscular HGB Conc 30.4 g/dL (31.6-35.5); Mean Corpuscular Hemoglobin 27.3 pg (28.0-33.3); Mean Corpuscular Volume 89.9 fL (83.0-100.0); Mean Platelet Volume 10.6 fL (9.4-12.4); Monocytes # 0.5 K/mcL (0.0-1.3); Neutrophils # 3.5 K/mcL (1.6-8.9); Platelet Count 83 K/mcL (140-400); Red Blood Count 3.77 M/mcL (4.19-5.50); Red Cell Distribution Width 18.5 % (11.5-14.5); Segmented Neutrophils % 78.7 %
[2019-01-22 05:45] LABS: Albumin 4.1 g/dL (3.5-5.7); Calcium 9.4 mg/dL (8.6-10.3); Magnesium 1.4 mg/dL (1.6-2.6); Potassium 4.2 mEq/L (3.5-5.1)
[2019-01-22 08:26] LABS: Protein/Creatinine Ratio,Urine 0.21 mg/mg (0.00-0.20)
[2019-01-22] MEDS: clonazePAM 1 MG TABLET PO SCH ×2 (09:10→21:28)
[2019-01-22] MEDS: Pregabalin 75 MG CAPSULE PO SCH ×2 (09:10→21:28)
[2019-01-22] MEDS: Spironolactone 25 MG TABLET PO SCH (09:10)
[2019-01-22] MEDS: Torsemide 20 MG TABLET PO SCH (09:10)
[2019-01-22] MEDS: Metoprolol XL (24 HR) Succ 25 MG TAB.ER.24H PO SCH ×2 (09:10→21:28)
[2019-01-22] MEDS: Folic Acid 1 MG TABLET PO SCH (09:10)
[2019-01-22] MEDS: Isosorbide MONOnitrate (24 HR) 60 MG TAB.ER.24H PO SCH (09:11)
[2019-01-22] MEDS: Aspirin Enteric Coated 81 MG Tablet PO SCH (09:11)
[2019-01-22] MEDS: Venlafaxine XR (24 HR) 37.5 MG CAP.ER.24H PO SCH (09:11)
[2019-01-22] MEDS: Budesonide/Formoterol 160/4.5 1 PUFF INH IH SCH ×2 (10:36→21:25)
--- NOTE | 2019-01-22 11:02 | Internal Med Progress Note ---
Hospitalist Progress Note - Encounter Date of Encounter: 01/22/19 Time of Encounter: 11:00 - Subjective Interval History: HEENT and examined at bedside. Patient is new to me, information obtained from chart review and patient report. Overall says he feels better. Still short of breath that is worse with exertion but significantly improved. Denied chest pain. - Exam Vitals: Temp Pulse Resp BP Pulse Ox 97.6 F 95 17 111/72 90 01/22/19 07:16 01/22/19 07:16 01/22/19 07:16 01/22/19 07:16 01/22/19 07:16 Exam: General appearance: Present: A&O X 3, pleasant, no acute distress - Head Head exam: Present: atraumatic, normocephalic - Eye Eye exam: Present: PERRL, conjuntiva pink, sclera anicteric Pupils: Present: PERRL - Neck Neck exam general surgery: Present: supple, trachea midline. Absent: lymphadenopathy - Respiratory Respiratory exam: Lung sounds diminished with crackles bilateral lower lobes posteriorly - Cardiovascular Cardiovascular exam: Present: RRR, +S1, +S2. Absent: diastolic murmur, gallop, rubs, systolic murmur - GI/Abdominal GI/Abdominal exam: Present: normal bowel sounds, soft, no peritoneal signs. Absent: distended, tenderness - Extremities Exam Extremities exam: Present: warm, radial pulses palpable and symmetrical. Abse nt: calf tenderness, cyanotic, pedal edema - Neurological Exam Neurological exam: Present: CN II-XII intact, oriented X3, no focal deficits. Absent: pronater drift, facial droop, speech deficit - Skin Skin exam: Present: dry, intact - Assessment and Plan (1) CHF (congestive heart failure) Current Visit: Yes Status: Acute Assessment and Plan: per hx. presented to OSH with worsening shortness of breath and lower ext edema. Most likely acute on chronic systolic and diastolic CHF. Recent TTE with EF 25- 30% and evidence of diastolic dysfunction (previously 50%). Initially diuresed with Lasix drip. Evaluated by cardiology who transitioned to torsemide 20 mg daily as loop diuretic. With crackles/rails on 01/22 exam. Repeat CXR. (2) CKD (chronic kidney disease), stage III Current Visit: Yes Status: Acute Assessment and Plan: dose not follow with nephrology. Renal ultrasound unremarkable. Renal function appears to be slightly worsened than arrival. CKD workup in process per nephro logy including 24-hour urine. Discussed with nephrology on 01/22 and will decrease dose of spironolactone and continue current dose of torsemide. Closely monitor renal function. Will need nephrology follow-up after discharge (3) CAD (coronary artery disease) Current Visit: Yes Status: Chronic Assessment and Plan: per hx. S/p PCI 1995. Presented with chest pain prior to arrival. Serial troponins negative. EKG without acute ST changes. Evaluated by cardiology who recommended medical therapy with increasing isosorbide and spironolactone. Not a candidate for invasive intervention with history of cirrhosis, thrombocytopenia and recent PE. On ASA, BB. Statin added and isosorbide increased per cardiology. Monitor on telemetry. (4) Pulmonary embolism Current Visit: Yes Status: Chronic Assessment and Plan: S/P IVF filter. 01/06/19 CTA with RUL pulmonary embolism. Unable to anti- coagulate due to cirrhosis and severe thrombocytopenia. (5) Thrombocytopenia Current Visit: No Status: Chronic Assessment and Plan: per hx. in the context of liver disease. PLTs stable. No active bleeding. Monitor (6) DVT prophylaxis Current Visit: Yes Status: Acute Assessment and Plan: 1. EPCD's. DVT Prophylaxis: SCD - Time Spent with Patient Total time spent is greater than 50% in coordination of care (as documented) at patient's floor/unit and/or counseling patient: Internal Medicine: Result - Labs CBC & Chem 7: 01/22/19 05:09 01/22/19 05:09 Labs: Short CBC 01/22/19 Range/Units 05:09 WBC 4.5 (4.3-11.1) K/mcL Hgb 10.3 L (12.9-16.9) g/dL Hct 33.9 L (37.5-50.1) % Plt Count 83 L (140-400) K/mcL Neutrophils # 3.5 (1.6-8.9) K/mcL BMP 01/22/19 05:09 Sodium 137 Potassium 4.2 Chloride 95 L Carbon Dioxide 42 H* BUN 31 H Creatinine 1.88 H Glucose 118 H Calcium 9.4 Liver Function 01/22/19 Range/Units 05:09 Albumin 4.1 (3.5-5.7) g/dL - ABG Interpretation ABG results: PT/INR, D-dimer PT 14.3 Seconds (9.4-12.1) H 01/16/19 22:32 Consult Discharge Plan - Plan Referrals: Román Alvarado MD [Non-Partnered Physician] - 01/23/19 12:20 pm (1) CHF (congestive heart failure) Qualifiers: Heart failure type: systolic Heart failure chronicity: acute on chronic Qualified Code(s): I50.23 - Acute on chronic systolic (congestive) heart failure (3) CAD (coronary artery disease) Qualifiers: Coronary Disease-Associated Artery/Lesion type: [place] artery [place] vs. transplanted heart: [place] heart Associated angina: with other forms of angina Qualified Code(s): I25.118 - Atherosclerotic heart disease of [place] coronary artery with other forms of angina pectoris (4) Pulmonary embolism Qualifiers: Pulmonary embolism type: unspecified Acute cor pulmonale presence: without acute cor pulmonale Qualified Code(s): I26.99 - Other pulmonary embolism without acute cor pulmonale
--- NOTE | 2019-01-22 13:38 | Nephrology Progress Note ---
Date of Encounter: 01/22/19 Time of Encounter: 13:15 - Assessment and Plan (1) Diuresis Current Visit: Yes Status: Acute Rising SCr, so I recommended slightly decreasing his diuretics: to dec the Spirono and ideally maintain (if tolerated by SCr) the low dose torsemide. Met alkalosis: likely secondary to both COPD and contraction alkalosis from diuretics. Okay to added periodic acetazolamide. No indications for GRANTS DIRECTOR. Will follow along. Discussed with the primary team. Thank you (2) CKD (chronic kidney disease), stage III Current Visit: Yes Status: Acute Noted on his labs. Will recommend checking CKD work up (3) Metabolic alkalosis Current Visit: Yes Status: Acute See above (4) CHF (congestive heart failure) Current Visit: Yes Status: Acute As per primary Qualifiers: Heart failure type: systolic Heart failure chronicity: acute on chronic Qualified Code(s): I50.23 - Acute on chronic systolic (congestive) heart failure (5) Cirrhosis Current Visit: No Status: Chronic As per primary Qualifiers: Hepatic cirrhosis type: unspecified hepatic cirrhosis Ascites presence: without ascites Qualified Code(s): K74.60 - Unspecified cirrhosis of liver (6) Proteinuria Current Visit: Yes Status: Acute Qualifiers: Proteinuria type: unspecified Qualified Code(s): R80.9 - Proteinuria, unspecified Subjective Principal diagnosis: chest pain Interval history: The patient was seen and examined today. He reported having much less swelling compared to admission, and he voiced his desire to hopefully be discharged home soon. He denied nausea, vomiting, and stated that he has had a history of smoking and chronic wheezing. He was wearing oxygen during my interview and exam. Objective - Vital Signs Vital signs: Vital Signs Temp Pulse Resp BP Pulse Ox 01/22/19 12:03 97 F L 98 14 96/58 90 01/22/19 07:16 97.6 F 95 17 111/72 90 01/22/19 03:57 18 105/70 94 01/22/19 02:52 98.1 F 53 20 105/70 94 01/21/19 23:10 98.8 F 93 20 107/69 97 01/21/19 23:03 20 107/69 97 01/21/19 22:21 18 107/70 97 01/21/19 19:13 98.3 F 113 16 107/70 98 01/21/19 15:56 98.3 F 90 17 106/68 98 01/21/19 15:09 16 106/68 97 Intake and Output 01/21/19 01/22/19 01/22/19 23:59 07:59 15:59 Intake Total 740 / 1200 120 / 120 Balance 740 / 1200 120 / 120 Intake: Oral 740 / 1200 120 / 120 Other: Meal Breakfast Percent of Meal Consumed 100% Weight 87 kg Patient Weight 01/22/19 23:59 Weight 87 kg - General Appearance General appearance: Present: well-developed, well-nourished, appears started age EENT: Present: ATNC, PERRL, mucous membranes moist Neck: Present: no JVD, supple Respiratory: Present: wheezing (faintly noted) Cardiology: Present: edema (trace calf pitting edema but minimal ankle edema bilaterally. No hand edema or JVD. ), regular rate, regular rhythm, normal S1, normal S2 Gastrointestinal: Present: normoactive bowel sounds, no tenderness, no guarding Integumentary: Present: warm and dry Neurologic: Present: no focal deficit, no asterixis, alert and oriented x3 Musculoskeletal: Present: no erythema, no cyanosis Psychiatric: Present: mood/affect appropriate, cooperative - Lab 01/22/19 05:09 01/22/19 05:09 Most recent lab results 01/22/19 01/22/19 04:00 05:09 Calcium 9.4 Magnesium 1.4 L Urine Creatinine 141 Urine Total Protein 30 H Consult Discharge Plan - Plan Referrals: Román Alvarado MD [Non-Partnered Physician] - 01/23/19 12:20 pm
[2019-01-23 03:42] LABS: Hematocrit 33.3 % (37.5-50.1); Hemoglobin 10.1 g/dL (12.9-16.9); Mean Corpuscular HGB Conc 30.3 g/dL (31.6-35.5); Mean Corpuscular Hemoglobin 27.4 pg (28.0-33.3); Mean Corpuscular Volume 90.2 fL (83.0-100.0); Platelet Count 87 K/mcL (140-400); Red Blood Count 3.69 M/mcL (4.19-5.50)
[2019-01-23] MEDS: Ipratropium/Albuterol Neb 3 ML IH SCH ×4 (03:42→21:18)
[2019-01-23 04:04] LABS: Albumin 3.8 g/dL (3.5-5.7); Albumin/Globulin Ratio 1.4 (1.1-2.2); Bilirubin,Total 0.8 mg/dL (0.3-1.0); Calcium 9.1 mg/dL (8.6-10.3); Globulin 2.7 g/dL (2.4-3.5); Potassium 4.5 mEq/L (3.5-5.1); Total Protein 6.5 g/dL (6.4-8.9)
[2019-01-23] MEDS: *HR* HYDROcodone/Acet 5/325 mg TABLET PO PRN ×2 (04:16→22:26)
[2019-01-23] MEDS: Metoprolol XL (24 HR) Succ 25 MG TAB.ER.24H PO SCH ×2 (09:21→20:47)
[2019-01-23] MEDS: Venlafaxine XR (24 HR) 37.5 MG CAP.ER.24H PO SCH (09:21)
[2019-01-23] MEDS: Torsemide 20 MG TABLET PO SCH (09:21)
[2019-01-23] MEDS: clonazePAM 1 MG TABLET PO SCH ×2 (09:21→20:47)
[2019-01-23] MEDS: Spironolactone 25 MG TABLET PO SCH (09:21)
[2019-01-23] MEDS: Aspirin Enteric Coated 81 MG Tablet PO SCH (09:21)
[2019-01-23] MEDS: Pregabalin 75 MG CAPSULE PO SCH ×2 (09:21→20:47)
[2019-01-23] MEDS: Isosorbide MONOnitrate (24 HR) 60 MG TAB.ER.24H PO SCH (09:21)
[2019-01-23] MEDS: Folic Acid 1 MG TABLET PO SCH (09:21)
[2019-01-23] MEDS: Budesonide/Formoterol 160/4.5 1 PUFF INH IH SCH ×2 (10:59→21:18)
--- NOTE | 2019-01-23 12:47 | Nephrology Progress Note ---
Date of Encounter: 01/23/19 Time of Encounter: 11:15 - Assessment and Plan (1) Diuresis Current Visit: Yes Status: Acute As discussed yesterday with his hospitalist, since his renal function is stable I am okay with discharge today. Continue diuretics. He should have a chemistry checked in approximately one week after discharge and close nephrology follow- up. Met alkalosis: likely secondary to both COPD and contraction alkalosis from diuretics. Okay to added periodic acetazolamide. No indications for FRICKERTRON CHECKER. I will sign-off at this point, but I recommend outpt nephro follow up and in the clinic, I will discuss his urine studies and help titrate his diuretics as based upon his renal function. Please feel free to call or page me with any questions. Thank you (2) CKD (chronic kidney disease), stage III Current Visit: Yes Status: Acute Noted on his labs as his baseline (3) Metabolic alkalosis Current Visit: Yes Status: Acute See above (4) CHF (congestive heart failure) Current Visit: Yes Status: Acute As per primary Qualifiers: Heart failure type: systolic Heart failure chronicity: acute on chronic Qualified Code(s): I50.23 - Acute on chronic systolic (congestive) heart failure (5) Cirrhosis Current Visit: No Status: Chronic As per primary Qualifiers: Hepatic cirrhosis type: unspecified hepatic cirrhosis Ascites presence: without ascites Qualified Code(s): K74.60 - Unspecified cirrhosis of liver (6) Proteinuria Current Visit: Yes Status: Acute Noted on the UA. Will semiquantitate with a spot Urine P/C ratio. If in the nephrotic range, then his edema could be renal related. Qualifiers: Proteinuria type: unspecified Qualified Code(s): R80.9 - Proteinuria, unspecified Subjective Principal diagnosis: chest pain Interval history: The patient was seen and examined today. He reported having much less swelling compared to admission, and he voiced his desire to hopefully be discharged home soon, and he said that he hopes to follow up with me in clinic to be his med surg nurse. He did not affirm N/V/D Objective - Vital Signs Vital signs: Vital Signs Temp Pulse Resp BP Pulse Ox 01/23/19 11:33 98.3 F 103 17 113/66 88 01/23/19 11:00 18 66 01/23/19 09:17 98.0 F 94 14 105/67 97 01/23/19 03:40 98.2 F 100 18 117/74 90 01/22/19 23:15 98.3 F 104 18 117/72 89 01/22/19 21:25 18 93 01/22/19 19:48 98.3 F 96 16 113/70 97 01/22/19 16:38 98.2 F 91 15 100/62 96 01/22/19 16:04 18 98 Intake and Output 01/22/19 01/23/19 01/23/19 23:59 07:59 15:59 Intake Total 240 / 600 120 / 120 Output Total 525 / 525 Balance -285 / 75 120 / 120 Intake: Oral 240 / 600 120 / 120 Output: Urine 525 / 525 Other: Meal Breakfast Percent of Meal Consumed 100% Weight 89.3 kg Patient Weight 01/23/19 23:59 Weight 89.3 kg - General Appearance General appearance: Present: well-developed, well-nourished, appears started age, obese EENT: Present: ATNC, PERRL, mucous membranes moist Neck: Present: supple Respiratory: Present: clear, wheezing (but faint wheezes noted on exhalation) Cardiology: Present: edema (trace nontense LE ankle edema bilaterally), regular rate, regular rhythm, normal S1, normal S2 Gastrointestinal: Present: normoactive bowel sounds, no tenderness, no guarding Integumentary: Present: warm and dry, chronic venous stasis Neurologic: Present: no focal deficit, no asterixis, alert and oriented x3 Musculoskeletal: Present: no deformities, no erythema, no cyanosis, no clubbing Psychiatric: Present: mood/affect appropriate, cooperative - Lab 01/24/19 04:42 01/24/19 04:42 Most recent lab results 01/23/19 02:57 Calcium 9.1 Consult Discharge Plan - Plan Additional Instructions: You will need to seed cone picker BIPAP at [facility] in [place] on January 24, 2019 at 3pm. This will also include an education session with a Respiratory Therapist. Referrals: Román Alvarado MD [Non-Partnered Physician] - Renate Nicole DO [Partnered Physician] -
--- NOTE | 2019-01-23 13:17 | Internal Med Progress Note ---
Hospitalist Progress Note - Encounter Date of Encounter: 01/23/19 Time of Encounter: 09:30 - Subjective Interval History: Mr. Stevenson is a 68 year old male who presented to [facility] from [place] [facility] for concerns of shortness of breath, CHF exacerbation, and chest pain. Patient was recently discharged from [facility] after having been found to have PE and undergoing IVC filter placement. He was not started on anticoagulation due to high risk of bleeding from cirrhosis and severe thrombocytopenia. He came to the [place] ER with complaints of vague chest tightness, significant edema, shortness of breath, and significant exertional dyspnea. He was found to have evidence of CHF and clinical concern for chest pain. He was therefore transferred to [facility]. He was admitted in the hospital and started him on aggressive IV Diuresis. He does have COPD exacerbation with acute and chronic hypoxic/Respiratory failure. He was placed on BiPAP initially, now he is using BiPAP at night time. Today he is more alert, awake and O x 3. Denied any CP / SOB. His breathing seems to be close to baseline. His swelling in both legs also seems to be close to baseline. - Exam Vitals: Temp Pulse Resp BP Pulse Ox 97.9 F 100 16 115/73 92 01/23/19 12:49 01/23/19 12:49 01/23/19 12:49 01/23/19 12:49 01/23/19 12:49 Exam: Gen: Alert, awake, Oriented to time,place and person Chest: Diminished breath sounds B/L, mild wheezing, No crackles, No rales Heart: S1S2+ RRR No murmurs Abd: Soft, NT, BS +, No organomegaly Ext:1+ edema, pulses are palpable, No calf tenderness Neuro : Benign findings Skin: No rash. - Assessment and Plan (1) CHF (congestive heart failure) Current Visit: Yes Status: Acute Assessment and Plan: Acute on chronic combine systolic and diastolic CHF exacerbation improving Recent TTE with EF 35% and evidence of diastolic dysfunction. Initially diuresed with Lasix drip. Evaluated by cardiology who transitioned to torsemide 20 mg daily as loop diuretic Cont BB Metoprolo, Aldactone, ASA and statin (2) Acute and chronic respiratory failure with hypercapnia Current Visit: Yes Status: Acute Assessment and Plan: Failed CPAP trail Pt would get benefit with BiPAP CM working on home BiPAP set up possible d.c home in AM with BiPAP (3) CAD (coronary artery disease) Current Visit: Yes Status: Chronic Assessment and Plan: Presented with chest pain prior to arrival due to CHF exacerbation Serial troponins negative. EKG without acute ST changes. Evaluated by cardiology who recommended medical therapy with increasing isoso rbide and spironolactone. Not a candidate for invasive intervention with history of cirrhosis, thrombocytopenia and recent PE. On ASA, BB, Statin added and isosorbide increased per cardiology. (4) Thrombocytopenia Current Visit: No Status: Chronic Assessment and Plan: per hx. in the context of liver disease. PLTs stable. No active bleeding. Monitor (5) Pulmonary embolism Current Visit: Yes Status: Chronic Assessment and Plan: S/P IVF filter 01/06/19 CTA with RUL pulmonary embolism. Unable to anti-coagulate due to cirrhosis and severe thrombocytopenia. (6) CKD (chronic kidney disease), stage III Current Visit: Yes Status: Acute Assessment and Plan: Cr close to baseline optimized his diuretics appreciate nephrology recommendations need close follow-up with deck and hull assembler outpatient (7) DVT prophylaxis Current Visit: Yes Status: Acute Assessment and Plan: 1. EPCD's. (8) Metabolic alkalosis Current Visit: Yes Status: Acute Assessment and Plan: Due to aggressive diagnosis improved Will give Acetazolamide as needed - Time Spent with Patient Total time spent is greater than 50% in coordination of care (as documented) at patient's floor/unit and/or counseling patient: Internal Medicine: Result - Labs CBC & Chem 7: 01/23/19 02:57 01/23/19 02:57 Labs: Short CBC 01/23/19 Range/Units 02:57 WBC 4.3 (4.3-11.1) K/mcL Hgb 10.1 L (12.9-16.9) g/dL Hct 33.3 L (37.5-50.1) % Plt Count 87 L (140-400) K/mcL BMP 01/23/19 02:57 Sodium 143 Potassium 4.5 Chloride 94 L Carbon Dioxide 41 H* BUN 35 H Creatinine 1.85 H Glucose 116 H Calcium 9.1 Liver Function 01/23/19 Range/Units 02:57 Total Bilirubin 0.8 (0.3-1.0) mg/dL AST 20 (13-39) Units/L ALT 12 (7-52) Units/L Alkaline Phosphatase 77 (34-104) Units/L Albumin 3.8 (3.5-5.7) g/dL - ABG Interpretation ABG results: PT/INR, D-dimer PT 14.3 Seconds (9.4-12.1) H 01/16/19 22:32 - Impressions Impressions Chest X-Ray 01/22/19 13:03 IMPRESSION: 1. Cardiomegaly with findings suggesting mild pulmonary edema and likely right effusion and atelectasis. D/ / Britton Parson MD / Britton Parson MD Interpreting Provider: Britton Parson MD Consult Discharge Plan - Plan Referrals: Román Alvarado MD [Non-Partnered Physician] - Renate Nicole DO [Partnered Physician] - (1) CHF (congestive heart failure) Qualifiers: Heart failure type: systolic Heart failure chronicity: acute on chronic Qualified Code(s): I50.23 - Acute on chronic systolic (congestive) heart failure (3) CAD (coronary artery disease) Qualifiers: Coronary Disease-Associated Artery/Lesion type: [place] artery [place] vs. transplanted heart: [place] heart Associated angina: with other forms of angina Qualified Code(s): I25.118 - Atherosclerotic heart disease of [place] coronary artery with other forms of angina pectoris (5) Pulmonary embolism Qualifiers: Pulmonary embolism type: unspecified Acute cor pulmonale presence: without acute cor pulmonale Qualified Code(s): I26.99 - Other pulmonary embolism without acute cor pulmonale
[2019-01-23 20:03] LABS: Kappa Qnt Free Light Chains 4.03 mg/dL (0.33-1.94); Lambda Qnt Free Light Chains 1.98 mg/dL (0.57-2.63)
[2019-01-23 20:32] LABS: Protein/Creatinine Ratio,Urine 0.18 mg/mg (0.00-0.20); Sodium, Urine 54.5 mEq/L
[2019-01-23 20:59] LABS: Total Volume 24 Hour,Urine 1.84 Liters (0.80-1.80)
[2019-01-24] MEDS: Ipratropium/Albuterol Neb 3 ML IH SCH ×2 (03:22→09:50)
[2019-01-24 05:15] LABS: Hematocrit 32.4 % (37.5-50.1); Hemoglobin 9.7 g/dL (12.9-16.9); Immature Platelets 8.1 % (1.1-6.1); Mean Corpuscular HGB Conc 29.9 g/dL (31.6-35.5); Mean Corpuscular Hemoglobin 26.8 pg (28.0-33.3); Mean Corpuscular Volume 89.5 fL (83.0-100.0); Mean Platelet Volume 11.8 fL (9.4-12.4); Red Blood Count 3.62 M/mcL (4.19-5.50); Red Cell Distribution Width 17.7 % (11.5-14.5)
[2019-01-24 05:36] LABS: Albumin 3.7 g/dL (3.5-5.7); Albumin/Globulin Ratio 1.4 (1.1-2.2); Bilirubin,Total 0.7 mg/dL (0.3-1.0); Calcium 9.2 mg/dL (8.6-10.3); Globulin 2.7 g/dL (2.4-3.5); Potassium 4.4 mEq/L (3.5-5.1); Total Protein 6.4 g/dL (6.4-8.9)
[2019-01-24] MEDS: Torsemide 20 MG TABLET PO SCH (09:11)
[2019-01-24] MEDS: Metoprolol XL (24 HR) Succ 25 MG TAB.ER.24H PO SCH (09:11)
[2019-01-24] MEDS: Pregabalin 75 MG CAPSULE PO SCH (09:11)
[2019-01-24] MEDS: Spironolactone 25 MG TABLET PO SCH (09:11)
[2019-01-24] MEDS: *HR* HYDROcodone/Acet 5/325 mg TABLET PO PRN (09:11)
[2019-01-24] MEDS: Aspirin Enteric Coated 81 MG Tablet PO SCH (09:11)
[2019-01-24] MEDS: clonazePAM 1 MG TABLET PO SCH (09:11)
[2019-01-24] MEDS: Isosorbide MONOnitrate (24 HR) 60 MG TAB.ER.24H PO SCH (09:11)
[2019-01-24] MEDS: Venlafaxine XR (24 HR) 37.5 MG CAP.ER.24H PO SCH (09:11)
[2019-01-24] MEDS: Folic Acid 1 MG TABLET PO SCH (09:12)
[2019-01-24] MEDS: Budesonide/Formoterol 160/4.5 1 PUFF INH IH SCH (09:50)
--- NOTE | 2019-01-24 10:02 | Discharge Summary ---
- NOTES TO OUTPATIENT PROVIDER Notes to Outpatient Provider: Follow up with PCP in one week. Follow-up with manifest/order organizer print orders Dr. Alvarado in 1-2 weeks. Please go for blood work BMP, Mg before you see manifest/order organizer print orders. Follow-up with the director of payroll in a couple of weeks Orders not resulted at time of discharge: Pending orders 01/22/19 05:09 Immunoelectrophoresis AM 040 [place] Lambda Qnt FLC [place] [address]001/22/19 08:06 Immunofixation,Urine (BJP) AM 04001/23/19 19:20 Immunofixation,Urine (BJP) Stat 01/25/19 04:00 CMP [Comprehensive Metabolic Panel] AM 040 Complete Blood Count w/o Diff [HEME] AM 04001/26/19 04:00 CMP [Comprehensive Metabolic Panel] AM 040 Complete Blood Count w/o Diff [HEME] AM 04001/27/19 04:00 CMP [Comprehensive Metabolic Panel] AM 040 Complete Blood Count w/o Diff [HEME] AM 0400 Date of Encounter: 01/24/19 Time of Encounter: 10:05 - Discharge Diagnosis (1) CHF (congestive heart failure) Priority: Primary Status: Acute Qualifiers: Heart failure type: systolic Heart failure chronicity: acute on chronic Qualified Code(s): I50.23 - Acute on chronic systolic (congestive) heart failure (2) Acute and chronic respiratory failure with hypercapnia Priority: Primary Status: Acute (3) CAD (coronary artery disease) Priority: Secondary Status: Chronic Qualifiers: Coronary Disease-Associated Artery/Lesion type: [place] artery [place] vs. transplanted heart: [place] heart Associated angina: with other forms of angina Qualified Code(s): I25.118 - Atherosclerotic heart disease of [place] coronary artery with other forms of angina pectoris (4) Thrombocytopenia Priority: Secondary Status: Chronic (5) Pulmonary embolism Priority: Secondary Status: Chronic Qualifiers: Pulmonary embolism type: unspecified Acute cor pulmonale presence: without acute cor pulmonale Qualified Code(s): I26.99 - Other pulmonary embolism without acute cor pulmonale (6) CKD (chronic kidney disease), stage III Priority: Secondary Status: Acute (7) DVT prophylaxis Priority: Secondary Status: Acute (8) Metabolic alkalosis Priority: Secondary Status: Acute Hospital course: Mr. Stevenson is a 68 year old male who presented to [facility] from [facility] for concerns of shortness of breath, CHF exacerbation, and chest pain. Patient was recently discharged from [facility] after having been found to have PE and undergoing IVC filter placement. He was not started on anticoagulation due to high risk of bleeding from cirrhosis and severe thrombocytopenia. He came to the [place] [facility] with complaints of vague chest tightness, significant edema, shortness of breath, and significant exertional dyspnea. He was found to have evidence of CHF and clinical concern for chest pain. He was therefore transferred to [facility]. He was admitted in the hospital and started him on aggressive IV Diuresis. He does have COPD exacerbation with acute and chronic hyper capneic Respiratory failure. He was placed on BiPAP initially, now he is using BiPAP at night time. He did develop metabolic alkalosis due to aggressive diuresis and COPD which improved with slow diuresis and Acetazolamide. Pt was evaluated by Crdiologist who recommend to inc his Imdur to 60mg, added Aldactone his diuretic regimen, also recommend to switch to Bumex from Lasix since he had some resistance to Lasix . He also needed BiPAP at use at night time due to his chronic hyper capneic respiratory failure. CM did arrange for home BiPAP. Today he is more alert, awake and O x 3. Denied any CP / SOB. His breathing seems to be close to baseline. His swelling in both legs also seems to be close to baseline. So will d/c him home in stable condition today. - Time Spent with Patient Total time spent providing and/or coordinating discharge services: - Discharge Medications Prescriptions: New Spironolactone [Aldactone] 12.5 mg PO DAILY #15 tablet Bumetanide [Bumex] 0.5 mg PO BIDDIURETIC #30 tablet Isosorbide MONOnitrate (24 HR) [Imdur] 60 mg PO DAILY #30 tab.er.24h Continued Pregabalin [Lyrica] 75 mg PO BID clonazePAM [Clonazepam] 1 mg PO BID Buspirone HCl [Buspar] 7.5 mg PO DAILY@1500 Tamsulosin HCl [Flomax] 0.4 mg PO DAILY Budesonide/Formoterol 160/4.5 [Symbicort 160/4.5] 2 puff IH BID Venlafaxine HCl [Venlafaxine HCl ER] 37.5 mg PO QAM Cholecalciferol (Vitamin D3) [Vitamin D3] 1,000 unit PO QDPC Albuterol Neb [Proventil Neb] 2.5 mg IH TID Pantoprazole Sodium [Protonix] 40 mg PO DAILY Folic Acid 1 mg PO DAILY Metoprolol XL (24 HR) Succ [Toprol Xl] 25 mg PO BID #60 tab.er.24h Albuterol Sulfate [Albuterol Inhaler] 2 puff IH Q4H PRN PRN Reason: Shortness Of Breath Aspirin [Adult Aspirin Regimen] 81 mg PO DAILY Nitroglycerin [Nitrostat] 0.4 mg SL Q5M PRN PRN Reason: Chest Pain Discontinued Isosorbide MONOnitrate (24 HR) [Imdur] 30 mg PO DAILY #30 tab.er.24h Furosemide [Lasix] 20 mg PO DAILY Home Medications: Budesonide/Formoterol 160/4.5 [Symbicort 160/4.5] 2 puff IH BID 11/23/18 [History] Buspirone HCl [Buspar] 7.5 mg PO DAILY@1500 11/23/18 [History] Cholecalciferol (Vitamin D3) [Vitamin D3] 1,000 unit PO QDPC 11/23/18 [History] Pregabalin [Lyrica] 75 mg PO BID 11/23/18 [History] Tamsulosin HCl [Flomax] 0.4 mg PO DAILY 11/23/18 [History] Venlafaxine HCl [Venlafaxine HCl ER] 37.5 mg PO QAM 11/23/18 [History] clonazePAM [Clonazepam] 1 mg PO BID 11/23/18 [History] Nitroglycerin [Nitrostat] 0.4 mg SL Q5M PRN 12/12/18 [History] Albuterol Neb [Proventil Neb] 2.5 mg IH TID 12/13/18 [History] Pantoprazole Sodium [Protonix] 40 mg PO DAILY 12/13/18 [History] Folic Acid 1 mg PO DAILY 01/06/19 [History] Metoprolol XL (24 HR) Succ [Toprol Xl] 25 mg PO BID #60 tab.er.24h 01/12/19 [Rx] Albuterol Sulfate [Albuterol Inhaler] 2 puff IH Q4H PRN 01/17/19 [History] Aspirin [Adult Aspirin Regimen] 81 mg PO DAILY 01/17/19 [History] Bumetanide [Bumex] 0.5 mg PO BIDDIURETIC #30 tablet 01/24/19 [Rx] Isosorbide MONOnitrate (24 HR) [Imdur] 60 mg PO DAILY #30 tab.er.24h 01/24/19 [Rx] Spironolactone [Aldactone] 12.5 mg PO DAILY #15 tablet 01/24/19 [Rx] Allergies/Adverse Reactions: Allergy/AdvReac Type Severity Reaction Status Date / Time phenytoin [From Dilantin] AdvReac See Verified 01/17/19 10:59 Comments Date of admission: 01/16/19 22:07 Primary care physician: PCP NONE Consults: 01/17/19 08:24 Consult to Cardiology [CONS] Routine Comment: Consulting Provider: Cardiology Becky Reason for Consult: CHF exacerbation, progressively decreased EF Call Completed: No 01/17/19 11:28 Consult to Nurse Navigator [CONS] Routine Comment: CHF 01/20/19 15:02 Consult to Nephrology [CONS] Routine Consulting Provider: Kidney Becky/TRIP/REUBEN/CECILIA Reason for Consult: SONU on CKD, acute CHF, cirrhosis Call Completed: Yes - Constitutional Vitals: Temp Pulse Resp BP Pulse Ox 97.5 F L 94 19 125/83 100 01/24/19 07:35 01/24/19 07:35 01/24/19 09:51 01/24/19 07:35 01/24/19 09:51 General appearance: Present: cooperative, A&O X 3, pleasant, no acute distress, answers questions appropriately Exam: Gen: Alert, awake, Oriented to time,place and person Chest: Diminished breath sounds B/L, mild wheezing, No crackles, No rales Heart: S1S2+ RRR No murmurs Abd: Soft, NT, BS +, No organomegaly Ext:Trace edema, pulses are palpable, No calf tenderness Neuro : Benign findings Skin: No rash. - Patient Status Disposition: Home, Self-Care Condition: Good Overall status at discharge: patient is back to baseline - Ambulatory Orders Ambulatory Orders: Basic Metabolic Panel [CHEM] Time Frame: 01/30/19, Facility: [facility], Location: Lab Magnesium [CHEM] Time Frame: 01/30/19, Facility: [facility], Location: Lab - Discharge Instructions Follow Up With: Román Alvarado MD [Non-Partnered Physician] - Renate Nicole DO [Partnered Physician] - Fredi Alvarado DO [Partnered Physician] - Brad Agarwal DO [Partnered Physician] - Additional Instructions: You will need to turkey picker BIPAP at [facility] in [place] on January 24, 2019 at 3pm. This will also include an education session with a Respiratory Therapist. - Diet and Activity Activity: increase activity as tolerated, wear oxygen at all times Diet: low salt diet
[2019-01-24 10:43] VITALS: BP 97/61
[2019-01-24 17:38] LABS: Alpha 2 Globulin (PEP) 0.88 g/dL (0.48-1.05); Beta Globulin (PEP) 0.68 g/dL (0.48-1.10)
[2019-01-24 23:15] LABS: Urine Collection Volume RANDOM mL
[2019-01-25 14:34] LABS: IFE Reflexed IFE Done; Immunoglobulin A 122 mg/dL (68-408); Immunoglobulin G 866 mg/dL (768-1632); Immunoglobulin M 17 mg/dL (35-263)
[2019-01-26 06:42] LABS: Urine Collection Volume 1836 mL
== END 2019-01-24 11:44 | disposition home or self-care (01) | DRG 291 ==
LOC: 3BNU → SUATTDRO 22:07
PROVIDERS: ADMIT Student in an Organized Health Care Education/Training Program; ATTEND Family Medicine